=== PATIENT | male | born 1970 | race Two or more races ===

== ENCOUNTER 2016-07-25 11:37 | Emergency (ER) | payer SELFPAY ==
[~2016-07-25] VITALS: Ht 162.6 cm; Wt 65.3 kg
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
--- NOTE | 2016-07-25 12:05 | NUR ---
Shane pool in [facility] - 07/25/16 at 1227 by ABIGAIL PT TO RADIOLOGY FOR HEAD CT SCAN VIA [facility].
--- NOTE | 2016-07-25 12:12 | NUR ---
DR HERBERT AT BEDSIDE FOR EVAL.
--- NOTE | 2016-07-25 12:15 | NUR ---
PT TO RADIOLOGY FOR HEAD CT SCAN VIA [facility].
--- NOTE | 2016-07-25 17:15 | NUR ---
SLEEPING, EASILY AROUSABLE. ON MONITOR. VSS.
[2016-07-25 22:14] VITALS: BP 135/77
--- NOTE | 2016-07-25 22:14 | NUR ---
AWAKE. AMBULATORY W/ STEADY GAIT. STATES WANTS TO LEAVE. D/C IN STABLE CONDITION.
== END 2016-07-25 22:15 | disposition home or self-care (01) ==
LOC: ER 11:41 → EDBD 11:41 → ER 22:15
DX: F10.129 Alcohol abuse with intoxication, unspecified (principal); R51 Headache
CPT/HCPCS: 70450; 99284; A4606; Z7610

== ENCOUNTER 2016-08-15 19:15 | Emergency (ER) | payer SELFPAY ==
[~2016-08-15] VITALS: Ht 144.8 cm; Wt 70.8 kg
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
[2016-08-15] MEDS ORDERED: IV SET PRIMARY 1 EA INFUS.SET MC ONE ×2 (19:35→22:32)
[2016-08-15] MEDS ORDERED: IV NS 0.9% 1,000 ML ONE (19:35)
[2016-08-15] MEDS ORDERED: ONDANSETRON HCL/PF 4 MG/2 ML VIAL ONE (19:35)
[2016-08-15 19:46] LABS: EOSINOPHILS # (AUTO) 0.1 /CMM (0.0-0.7); EOSINOPHILS % (AUTO) 1.6 % (0.0-6.0); HEMATOCRIT 38 % (39-51); HEMOGLOBIN 12.5 g/dL (13.5-17.5); LYMPHOCYTES # (AUTO) 1.2 /CMM (0.8-4.8); LYMPHOCYTES % (AUTO) 32.5 % (20.0-44.0); MEAN CORPUSCULAR HEMOGLOBIN 32 PG (26.0-33.0); MEAN CORPUSCULAR HGB CONC 33 g/dl (31.0-36.0); MEAN CORPUSCULAR VOLUME 97 fL (80-96); MONOCYTES # (AUTO) 0.5 /CMM (0.1-1.30); MONOCYTES % (AUTO) 12.2 % (2.0-12.0); NEUTROPHILS % (AUTO) 52.7 % (43.0-81.0); RDW COEFFICIENT OF VARIATION 15.3 (11.5-15.0); RED BLOOD CELL COUNT(AUTO) 3.86 MIL/uL (4.5-6.0); WHITE BLOOD COUNT (AUTO) 3.8 K/uL (4.3-11.0)
[2016-08-15 19:51] LABS: PLATELET COUNT (AUTO) 47 /CMM (150-450)
--- NOTE | 2016-08-15 19:58 | NUR ---
STARTED A SALINE LOCK ON THE RIGHT HAND G20.
[2016-08-15] MEDS ORDERED: ONDANSETRON HCL/PF 4 MG/2 ML VIAL IVP ONE (20:00)
[2016-08-15] MEDS ORDERED: IV NS 0.9% 1,000 ML BAG IV ONE (20:00)
--- NOTE | 2016-08-15 20:05 | NUR ---
PT NOT ABLE TO COOPERATE AT THIS TIME. MAY GET MEDS LATER, ER WILL CALL WHEN READY.
[2016-08-15 20:09] LABS: APPEARANCE,URINE Clear (CLEAR); BILIRUBIN,URINE Negative (NEGATIVE); BLOOD, URINE Trace-lysed Ery/uL (NEGATIVE); COLOR,URINE Yellow (YELLOW); KETONES,URINE Negative (NEGATIVE); LEUKOCYTE ESTERASE ,URINE Negative (NEGATIVE); NITRITE, URINE Negative (NEGATIVE); PROTEIN,URINE Negative (NEGATIVE); UGLUCOSE Negative (NEGATIVE); UROBILINOGEN,URINE 0.2 EU/dL (0.2)
[2016-08-15 20:22] LABS: CANNABINOID, URINE NEGATIVE (NEGATIVE); PHENCYCLIDINE SCREEN,URINE NEGATIVE (NEGATIVE)
[2016-08-15 20:26] LABS: ALBUMIN 3.7 g/dL (3.4-5.0); BILIRUBIN,DIRECT 0.1 mg/dL (0.0-0.2); BILIRUBIN,TOTAL 0.3 mg/dL (0.2-1.0); CALCIUM, SERUM 8.1 mg/dL (8.5-10.1); CREATININE 0.6 mg/dL (0.6-1.3); TOTAL PROTEIN, SERUM 7.9 g/dL (6.4-8.2)
[2016-08-15 20:27] LABS: SALICYLATE 1.1 mg/dL (2.8-20.0)
[2016-08-15 20:49] LABS: POTASSIUM 3.6 mmol/L (3.5-5.1)
[2016-08-15 21:06] LABS: ADD URINE CULTURE NO; BACTERIA,URINE None seen /HPF (None Seen); SQUAMOUS EPITHELIAL CELL,UR None Seen /HPF (None Seen); WBC,URINE 0-2 /HPF (0-3)
[2016-08-15] MEDS ORDERED: IV PREMIX D5 1/2NS + KCL 1,000 ML IV ONE ×2 (22:05→22:32)
[2016-08-15 22:07] LABS: LYMPHOCYTES % (MANUAL) 37 % (16-48); NEUTROPHILS % (MANUAL) 54 (42-76)
[2016-08-15 22:08] LABS: ANISOCYTOSIS 1+; BASOPHILS % (MANUAL) 0 % (0.0-2.0); EOSINOPHILS % (MANUAL) 2 % (0-4); MONOCYTES % (MANUAL) 7 % (0-11.0); PLATELET ESTIMATE DECREASED
[2016-08-15] MEDS ORDERED: IV SET PRIMARY PUMP SET 1 EA INFUS.SET MC ONE (22:32)
--- NOTE | 2016-08-16 05:15 | NUR ---
PT REQUESTING TO BE DISCHARGED HOME. PT OK TO BE DISCHARGED PER DR JONES. Patient discharged to home in stable condition. Written and verbal after care instructions given. Patient verbalizes understanding of instruction.IV removed. Catheter intact and site benign. Pressure and 4x4 applied to site. No bleeding noted.Patient is awake and alert to self, day, and place. PT ambulatory with a steady gait
[2016-08-16 05:30] VITALS: BP 118/85
== END 2016-08-16 05:31 | disposition home or self-care (01) ==
LOC: ER 19:16
DX: S00.83XA Contusion of other part of head, initial encounter (principal); S20.212A Contusion of left front wall of thorax, initial encounter; F10.129 Alcohol abuse with intoxication, unspecified; W18.39XA Other fall on same level, initial encounter; Y93.89 Activity, other specified; Y92.89 Other specified places as the place of occurrence of the external cause; Y99.8 Other external cause status
CPT/HCPCS: 36415; 70450-TC; 70486-TC; 71100-TC; 72125-TC; 80048-TC; 80076-TC; 80305; 81000-TC; 83690-TC; 83735-TC; 85025-TC; A4606; G0480; G6039-TC; J2405; J3490; J7030; L0172; Z7610

== ENCOUNTER 2016-12-25 14:47 | Emergency (ER) | payer SELFPAY ==
[~2016-12-25] VITALS: Ht 152.4 cm; Wt 61.7 kg
[~2016-12-25 14:47] MED LIST: MULT-24 PO; TETR500C PO; THIA100T74 PO
--- NOTE | 2016-12-25 14:50 | NUR ---
BIBRA 839 FOR ETOH, GA=826. PATIENT IS AWAKE, HOWEVER CONFUSED. APPEARS IN NO APPARENT DISTRESS. RESPIRATION EVEN AND UNLABORED. VSS
--- NOTE | 2016-12-25 16:20 | NUR ---
Patient is resting comfortably in bed with eyes closed. Easily aroused. VSS
[2016-12-25 16:50] VITALS: BP 112/81
== END 2016-12-25 16:50 | disposition home or self-care (01) ==
LOC: ER 14:49
DX: F10.129 Alcohol abuse with intoxication, unspecified (principal)
CPT/HCPCS: 99283; A4606; Z7610

== ENCOUNTER 2016-12-26 11:56 | Emergency (ER) | payer SELFPAY ==
[~2016-12-26] VITALS: Ht 160 cm; Wt 62.1 kg
--- NOTE | 2016-12-26 12:05 | NUR ---
PT BIBRA FROM THE STREETS TO ER BED 16. HERE FOR ETOH. NO OBVIOUS TRAUMA. PT IS AWAKE. STABLE VITALS. AWAITING MD VILLALOBOS.
--- NOTE | 2016-12-26 13:39 | NUR ---
PT IS AWAKE. PROVIDED W/ SANDWICH AND DRINKS. AMBULATED W/ STEADY GAIT. D/C IN SABLE CONDITION.
[2016-12-26 13:40] VITALS: BP 135/80
== END 2016-12-26 13:41 | disposition home or self-care (01) ==
LOC: ER 11:57
DX: F10.10 Alcohol abuse, uncomplicated (principal)
CPT/HCPCS: A4606; Z7610

== ENCOUNTER 2017-01-23 18:42 | Emergency (ER) | payer SELFPAY ==
[~2017-01-23] VITALS: Ht 160 cm; Wt 68.0 kg
--- NOTE | 2017-01-23 18:45 | NUR ---
PT GABI FROM THE STREETS TO ER BED 15. HERE FOR ETOH. NO OBVIOUS SIGN OF TRAUMA NOTED. STABLE VITALS AWAITING MD VILLALOBOS.
--- NOTE | 2017-01-23 22:05 | NUR ---
Patient discharged to home in stable condition. Written and verbal after care instructions given. Patient verbalizes understanding of instruction.
[2017-01-23 22:06] VITALS: BP 118/60
== END 2017-01-23 22:07 | disposition home or self-care (01) ==
LOC: ER 18:43
DX: F10.129 Alcohol abuse with intoxication, unspecified (principal)
CPT/HCPCS: A4606; Z7610

== ENCOUNTER 2017-05-09 10:00 | Emergency (ER) | payer SELFPAY ==
[~2017-05-09] VITALS: Ht 162.6 cm; Wt 68.0 kg
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
[2017-05-09] MEDS ORDERED: IV NS 0.9% 1,000 ML BAG IV ONE (11:30)
[2017-05-09 11:50] LABS: HEMATOCRIT 41 % (39-51); HEMOGLOBIN 14.4 g/dL (13.5-17.5); MEAN CORPUSCULAR HEMOGLOBIN 34 PG (26.0-33.0); MEAN CORPUSCULAR HGB CONC 35 g/dl (31.0-36.0); MEAN CORPUSCULAR VOLUME 97 fL (80-96); RED BLOOD CELL COUNT(AUTO) 4.23 MIL/uL (4.5-6.0); WHITE BLOOD COUNT (AUTO) 4.8 K/uL (4.3-11.0)
[2017-05-09 11:51] LABS: BASOPHILS % (AUTO) 1.1 % (0.0-2.0); EOSINOPHILS % (AUTO) 1.4 % (0.0-6.0); LYMPHOCYTES # (AUTO) 1.7 /CMM (0.8-4.8); LYMPHOCYTES % (AUTO) 46.8 % (20.0-44.0); MONOCYTES # (AUTO) 0.5 /CMM (0.1-1.30); MONOCYTES % (AUTO) 7.3 % (2.0-12.0); NEUTROPHILS % (AUTO) 43.4 % (43.0-81.0); PLATELET COUNT (AUTO) 192 /CMM (150-450); RDW COEFFICIENT OF VARIATION 11.2 (11.5-15.0)
[2017-05-09 12:11] LABS: CALCIUM, SERUM 8.8 mg/dL (8.5-10.1); POTASSIUM 3.9 mmol/L (3.5-5.1)
[2017-05-09 12:12] LABS: BILIRUBIN,DIRECT 0.1 mg/dL (0.0-0.2); BILIRUBIN,TOTAL 0.3 mg/dL (0.2-1.0); CREATININE 0.6 mg/dL (0.6-1.3); SALICYLATE 1.8 mg/dL (2.8-20.0)
[2017-05-09 12:14] LABS: APPEARANCE,URINE Clear (CLEAR); BILIRUBIN,URINE Negative (NEGATIVE); BLOOD, URINE Negative Ery/uL (NEGATIVE); COLOR,URINE Yellow (YELLOW); KETONES,URINE Negative (NEGATIVE); LEUKOCYTE ESTERASE ,URINE Negative (NEGATIVE); NITRITE, URINE Negative (NEGATIVE); PH,URINE 5.5 (5.0-8.0); PROTEIN,URINE Negative (NEGATIVE); UGLUCOSE Negative (NEGATIVE); UROBILINOGEN,URINE 0.2 EU/dL (0.2)
[2017-05-09 13:20] VITALS: BP 122/70
--- NOTE | 2017-05-09 13:20 | NUR ---
Patient discharged to home in stable condition. Written and verbal after care instructions given. Patient verbalizes understanding of instruction.IV removed. Catheter intact and site benign. Pressure and 4x4 applied to site. No bleeding noted.
== END 2017-05-09 13:24 | disposition home or self-care (01) ==
LOC: ER 10:02
DX: F10.129 Alcohol abuse with intoxication, unspecified (principal)
CPT/HCPCS: 36415; 80048; 80076; 80305; 80329; 81001; 85025; 99284; A4606; G0480 ×2; Z7610; 81000-TC

== ENCOUNTER 2017-05-12 12:06 | Emergency (ER) | payer SELFPAY ==
[~2017-05-12] VITALS: Ht 152.4 cm; Wt 60.8 kg
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
[2017-05-12 13:24] VITALS: BP 109/65
== END 2017-05-12 13:55 | disposition home or self-care (01) ==
LOC: ER 12:07
DX: F10.129 Alcohol abuse with intoxication, unspecified (principal)
CPT/HCPCS: 99283; A4606; Z7610

== ENCOUNTER 2017-05-14 15:44 | Emergency (ER) | payer SELFPAY ==
[~2017-05-14] VITALS: Ht 172.7 cm; Wt 74.8 kg
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
[2017-05-14 16:29] VITALS: BP 130/82
--- NOTE | 2017-05-14 16:50 | NUR ---
PATIENT AMBULATED TO ER RESTROOM WITH STEADY GAIT. PATIENT IS A/O X 3, NO DISTRESS NOTED. GAVE PATIENT WATER
--- NOTE | 2017-05-14 17:00 | NUR ---
PATIENT STATES HE WANT TO GO HOME, JUSTO CARPENTER NOTIFIED
--- NOTE | 2017-05-14 17:12 | NUR ---
Patient eloped from facility. ER MD notified.
== END 2017-05-14 17:18 | disposition left against medical advice (07) ==
LOC: ER 15:47
DX: F10.129 Alcohol abuse with intoxication, unspecified (principal); J02.9 Acute pharyngitis, unspecified
CPT/HCPCS: 99283; A4606; Z7610

== ENCOUNTER 2017-05-18 09:47 | Emergency (ER) | payer SELFPAY ==
[~2017-05-18] VITALS: Ht 162.6 cm; Wt 68.0 kg
[2017-05-18 10:25] LABS: EOSINOPHILS # (AUTO) 0.1 /CMM (0.0-0.7); EOSINOPHILS % (AUTO) 1.5 % (0.0-6.0); MONOCYTES # (AUTO) 0.4 /CMM (0.1-1.30); RDW COEFFICIENT OF VARIATION 11.6 (11.5-15.0)
[2017-05-18 10:35] LABS: CALCIUM, SERUM 8.1 mg/dL (8.5-10.1); CREATININE 0.6 mg/dL (0.6-1.3); POTASSIUM 3.6 mmol/L (3.5-5.1)
[2017-05-18 10:39] LABS: ALBUMIN 3.8 g/dL (3.4-5.0); BILIRUBIN,DIRECT 0.1 mg/dL (0.0-0.2); BILIRUBIN,TOTAL 0.3 mg/dL (0.2-1.0); TOTAL PROTEIN, SERUM 8.3 g/dL (6.4-8.2)
[2017-05-18 10:57] LABS: BASOPHILS % (AUTO) 0.5 % (0.0-2.0); HEMATOCRIT 35 % (39-51); LYMPHOCYTES # (AUTO) 1.3 /CMM (0.8-4.8); LYMPHOCYTES % (AUTO) 34.4 % (20.0-44.0); MEAN CORPUSCULAR HEMOGLOBIN 34 PG (26.0-33.0); MEAN CORPUSCULAR HGB CONC 35 g/dl (31.0-36.0); MEAN CORPUSCULAR VOLUME 97 fL (80-96); MONOCYTES % (AUTO) 9.3 % (2.0-12.0); NEUTROPHILS # (AUTO) 2.1 /CMM (1.8-8.9); NEUTROPHILS % (AUTO) 54.3 % (43.0-81.0); RED BLOOD CELL COUNT(AUTO) 3.57 MIL/uL (4.5-6.0); WHITE BLOOD COUNT (AUTO) 3.9 K/uL (4.3-11.0)
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
[2017-05-18 11:01] LABS: PLATELET COUNT (AUTO) 37 /CMM (150-450)
[2017-05-18 11:57] VITALS: BP 134/75
--- NOTE | 2017-05-18 11:57 | NUR ---
Patient discharged to home in stable condition. Written and verbal after care instructions given. Patient verbalizes understanding of instruction.
[2017-05-18 11:59] LABS: BAND % (MANUAL) 3 % (0.0-5.0); LYMPHOCYTES % (MANUAL) 32 % (16-48); MONOCYTES % (MANUAL) 6 % (0-11.0); NEUTROPHILS % (MANUAL) 59 (42-76)
== END 2017-05-18 11:58 | disposition home or self-care (01) ==
LOC: ER 09:53
DX: F10.129 Alcohol abuse with intoxication, unspecified (principal); D69.6 Thrombocytopenia, unspecified
CPT/HCPCS: 36415; 80048; 80076; 83690; 85025; 99284; A4606; Z7610

== ENCOUNTER 2017-06-04 11:41 | Emergency (ER) | payer SELFPAY ==
[~2017-06-04] VITALS: Ht 162.6 cm; Wt 74.8 kg
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
[2017-06-04 12:21] LABS: BASOPHILS % (AUTO) 1.2 % (0.0-2.0); EOSINOPHILS % (AUTO) 1.1 % (0.0-6.0); HEMATOCRIT 34 % (39-51); HEMOGLOBIN 11.8 g/dL (13.5-17.5); LYMPHOCYTES # (AUTO) 1.2 /CMM (0.8-4.8); LYMPHOCYTES % (AUTO) 34.3 % (20.0-44.0); MEAN CORPUSCULAR HEMOGLOBIN 34 PG (26.0-33.0); MEAN CORPUSCULAR HGB CONC 35 g/dl (31.0-36.0); MEAN CORPUSCULAR VOLUME 97 fL (80-96); MONOCYTES # (AUTO) 0.5 /CMM (0.1-1.30); MONOCYTES % (AUTO) 13.2 % (2.0-12.0); NEUTROPHILS # (AUTO) 1.9 /CMM (1.8-8.9); NEUTROPHILS % (AUTO) 50.2 % (43.0-81.0); RDW COEFFICIENT OF VARIATION 13.2 (11.5-15.0); RED BLOOD CELL COUNT(AUTO) 3.47 MIL/uL (4.5-6.0); WHITE BLOOD COUNT (AUTO) 3.6 K/uL (4.3-11.0)
[2017-06-04 12:22] LABS: PLATELET COUNT (AUTO) 33 /CMM (150-450)
[2017-06-04 12:29] LABS: CALCIUM, SERUM 8.3 mg/dL (8.5-10.1); CREATININE 0.8 mg/dL (0.6-1.3); POTASSIUM 3.5 mmol/L (3.5-5.1)
--- NOTE | 2017-06-04 12:31 | NUR ---
Patient is resting comfortably in bed with eyes closed. Easily aroused.
[2017-06-04 12:37] LABS: ALBUMIN 3.7 g/dL (3.4-5.0); BILIRUBIN,DIRECT 0.1 mg/dL (0.0-0.2); BILIRUBIN,TOTAL 0.4 mg/dL (0.2-1.0); TOTAL PROTEIN, SERUM 8.3 g/dL (6.4-8.2)
[2017-06-04 12:39] LABS: SALICYLATE 0.8 mg/dL (2.8-20.0)
[2017-06-04 13:30] LABS: BAND % (MANUAL) 1 % (0.0-5.0); EOSINOPHILS % (MANUAL) 4 % (0-4); LYMPHOCYTES % (MANUAL) 33 % (16-48); MONOCYTES % (MANUAL) 13 % (0-11.0); NEUTROPHILS % (MANUAL) 49 (42-76)
--- NOTE | 2017-06-04 14:48 | NUR ---
Patient is resting comfortably in bed with eyes closed. Easily aroused.
--- NOTE | 2017-06-04 16:51 | NUR ---
Patient discharged in stable condition. Written and verbal after care instructions given. Patient verbalizes understanding of instruction. Ambulatory in a steady gait.
[2017-06-04 16:55] VITALS: BP 135/82
== END 2017-06-04 16:55 | disposition home or self-care (01) ==
LOC: ER 11:43
DX: F10.129 Alcohol abuse with intoxication, unspecified (principal)
CPT/HCPCS: 36415; 70450-TC; 80048-TC; 80076-TC; 85025-TC; A4606; G0480; Z7610

== ENCOUNTER 2017-06-29 10:32 | Emergency (ER) | payer SELFPAY ==
[~2017-06-29] VITALS: Ht 160 cm; Wt 65.8 kg
[2017-06-29 11:11] LABS: BASOPHILS # (AUTO) 0.1 /CMM (0.0-0.2); BASOPHILS % (AUTO) 1.4 % (0.0-2.0); EOSINOPHILS # (AUTO) 0.1 /CMM (0.0-0.7); EOSINOPHILS % (AUTO) 2.7 % (0.0-6.0); HEMATOCRIT 35 % (39-51); HEMOGLOBIN 11.9 g/dL (13.5-17.5); LYMPHOCYTES % (AUTO) 27.4 % (20.0-44.0); MEAN CORPUSCULAR HEMOGLOBIN 33 PG (26.0-33.0); MEAN CORPUSCULAR HGB CONC 34 g/dl (31.0-36.0); MEAN CORPUSCULAR VOLUME 98 fL (80-96); MONOCYTES # (AUTO) 0.5 /CMM (0.1-1.30); MONOCYTES % (AUTO) 12.8 % (2.0-12.0); NEUTROPHILS % (AUTO) 55.7 % (43.0-81.0); PLATELET COUNT (AUTO) 62 /CMM (150-450); RDW COEFFICIENT OF VARIATION 14.5 (11.5-15.0); RED BLOOD CELL COUNT(AUTO) 3.59 MIL/uL (4.5-6.0); WHITE BLOOD COUNT (AUTO) 3.7 K/uL (4.3-11.0)
[2017-06-29 11:24] LABS: CALCIUM, SERUM 8.5 mg/dL (8.5-10.1); CREATININE 0.6 mg/dL (0.6-1.3); POTASSIUM 3.6 mmol/L (3.5-5.1)
[2017-06-29 11:38] LABS: ALBUMIN 3.8 g/dL (3.4-5.0); BILIRUBIN,DIRECT 0.2 mg/dL (0.0-0.2); BILIRUBIN,TOTAL 0.3 mg/dL (0.2-1.0); SALICYLATE 1.2 mg/dL (2.8-20.0); TOTAL PROTEIN, SERUM 8.5 g/dL (6.4-8.2)
--- NOTE | 2017-06-29 12:00 | NUR ---
Patient is resting comfortably in bed with eyes closed. Easily aroused. VSS
[2017-06-29 12:59] LABS: BAND % (MANUAL) 1 % (0.0-5.0); EOSINOPHILS % (MANUAL) 1 % (0-4); LYMPHOCYTES % (MANUAL) 26 % (16-48); MONOCYTES % (MANUAL) 16 % (0-11.0); NEUTROPHILS % (MANUAL) 56 (42-76)
--- NOTE | 2017-06-29 13:04 | NUR ---
URINE SAMPLE OBTAINED, SENT.
[2017-06-29 13:09] LABS: APPEARANCE,URINE Clear (CLEAR); BILIRUBIN,URINE Negative (NEGATIVE); BLOOD, URINE Trace-lysed Ery/uL (NEGATIVE); COLOR,URINE Yellow (YELLOW); KETONES,URINE Negative (NEGATIVE); LEUKOCYTE ESTERASE ,URINE Trace (NEGATIVE); NITRITE, URINE Negative (NEGATIVE); PH,URINE 5.5 (5.0-8.0); PROTEIN,URINE Negative (NEGATIVE); UGLUCOSE Negative (NEGATIVE); UROBILINOGEN,URINE 0.2 EU/dL (0.2)
[2017-06-29 13:14] LABS: BACTERIA,URINE None seen /HPF (None Seen)
[2017-06-29 13:16] LABS: SQUAMOUS EPITHELIAL CELL,UR Few /HPF (None Seen)
--- NOTE | 2017-06-29 15:30 | NUR ---
Patient is resting comfortably in bed with eyes closed. Easily aroused. VSS
[2017-06-29 19:21] VITALS: BP 118/72
== END 2017-06-29 18:55 | disposition home or self-care (01) ==
LOC: ER 10:33
DX: F10.129 Alcohol abuse with intoxication, unspecified (principal)
CPT/HCPCS: 36415; 80048; 80076; 80305; 80329; 81001; 85025; 99284; A4606; G0480 ×2; Z7610; 81000-TC

== ENCOUNTER 2017-07-02 14:16 | Emergency (ER) | payer SELFPAY ==
[~2017-07-02] VITALS: Ht 165.1 cm; Wt 79.4 kg
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
--- NOTE | 2017-07-02 16:00 | NUR ---
patient ambulated with steady gait
[2017-07-02 22:31] VITALS: BP 113/78
== END 2017-07-02 22:34 | disposition home or self-care (01) ==
LOC: ER 14:17
DX: R41.82 Altered mental status, unspecified (principal); F10.129 Alcohol abuse with intoxication, unspecified
CPT/HCPCS: A4606; Z7610

== ENCOUNTER 2017-07-16 11:22 | Emergency (ER) | payer SELFPAY ==
[~2017-07-16] VITALS: Ht 160 cm; Wt 67.6 kg
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
--- NOTE | 2017-07-16 13:06 | NUR ---
PT SLEEPING IN BED. ON MONITOR W/ STABLE VITALS. WILL CONT TO MONITOR.
--- NOTE | 2017-07-16 15:20 | NUR ---
PT AMBULATORY W/ STEADY GAIT. WANTS TO GO HOME. ERMD AWARE. D/C HOME IN STABLE CONDITION.
[2017-07-16 15:21] VITALS: BP 115/76
== END 2017-07-16 15:22 | disposition home or self-care (01) ==
LOC: ER 11:24
DX: F10.129 Alcohol abuse with intoxication, unspecified (principal)
CPT/HCPCS: 82962-TC; A4606; Z7610

== ENCOUNTER 2018-01-21 08:37 | Inpatient (IN) | payer MEDICAID ==
[~2018-01-21] VITALS: Ht 167.6 cm; Wt 63.2 kg
[~2018-01-21 08:37] MED LIST changes: +TETR-66 PO; -TETR500C PO
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
[2018-01-21] MEDS ORDERED: LORAZEPAM INJ 2 MG/ML VIAL IVP ONE (09:00)
[2018-01-21] MEDS ORDERED: IV NS 0.9% 1,000 ML BAG IV ONE (09:00)
[2018-01-21] MEDS ORDERED: CEFAZOLIN 1 GM in IV D5W 50 ML IV ONE (09:00)
[2018-01-21] MEDS ORDERED: TDAP [DIPH/PERTUSSIS/TET] 0.5 ML VIAL IM ONE ×2 (09:00→09:08)
[2018-01-21] MEDS ORDERED: LORAZEPAM INJ 2 MG/ML VIAL ONE ×2 (09:08→13:51)
--- NOTE | 2018-01-21 09:15 | NUR ---
NEW IV STARTED ON RAC, 20G. BLOOD DRAWN AND SENT TO LAB.
[2018-01-21 09:22] LABS: BASOPHILS % (AUTO) 0.2 % (0.0-2.0); HEMATOCRIT 32 % (39-51); HEMOGLOBIN 10.4 g/dL (13.5-17.5); LYMPHOCYTES # (AUTO) 0.3 /CMM (0.8-4.8); LYMPHOCYTES % (AUTO) 2.2 % (20.0-44.0); MEAN CORPUSCULAR HGB CONC 33 g/dl (31.0-36.0); MEAN CORPUSCULAR VOLUME 107 fL (80-96); MONOCYTES # (AUTO) 0.8 /CMM (0.1-1.30); MONOCYTES % (AUTO) 6.6 % (2.0-12.0); NEUTROPHILS # (AUTO) 10.7 /CMM (1.8-8.9); RDW COEFFICIENT OF VARIATION 15.2 (11.5-15.0); RED BLOOD CELL COUNT(AUTO) 2.93 MIL/uL (4.5-6.0); WHITE BLOOD COUNT (AUTO) 11.8 K/uL (4.3-11.0)
[2018-01-21 09:34] LABS: PLATELET COUNT (AUTO) 20 /CMM (150-450)
[2018-01-21 09:43] LABS: ALANINE AMINOTRANSFERASE 28 U/L (12-78); ALBUMIN 2.6 g/dL (3.4-5.0); ALCOHOL, BLOOD < 3 mg/dL (0-0); ALKALINE PHOSPHATASE 224 U/L (46-116); ASPARTATE AMINOTRANSFERASE 141 U/L (15-37); BILIRUBIN,DIRECT 1.3 mg/dL (0.0-0.2); CALCIUM, SERUM 7.8 mg/dL (8.5-10.1); CARBON DIOXIDE 27 mmol/L (21-32); CHLORIDE 98 mmol/L (98-107); CREATININE 0.9 mg/dL (0.6-1.3); GLUCOSE 117 mg/dL (74-106); SODIUM SERUM 135 mmol/L (136-145); TOTAL PROTEIN, SERUM 7.4 g/dL (6.4-8.2); UREA NITROGEN, BLOOD 6 mg/dL (7-18)
[2018-01-21 09:47] LABS: POTASSIUM 2.8 mmol/L (3.5-5.1)
[2018-01-21 09:57] LABS: BAND % (MANUAL) 6 % (0.0-5.0); LYMPHOCYTES % (MANUAL) 3 % (16-48); MONOCYTES % (MANUAL) 3 % (0-11.0); NEUTROPHILS % (MANUAL) 88 (42-76)
[2018-01-21] MEDS ORDERED: IOHEXOL-350 100 ML VIAL IV ONE (10:00)
[2018-01-21] MEDS ORDERED: IV NS 0.9% 250 ML IV ONE (10:03)
--- NOTE | 2018-01-21 10:05 | NUR ---
patient taken to ct via stretcher.
--- NOTE | 2018-01-21 10:17 | NUR ---
patient returned from ct in stable condition
[2018-01-21] MEDS ORDERED: POTASSIUM CL. PREMIX PERIPHER. 0 ML ONE ×2 (10:30→11:49)
[2018-01-21] MEDS: POTASSIUM CL. PREMIX PERIPHER. 50 ML IV SCH ×4 (10:30→23:58)
--- NOTE | 2018-01-21 11:16 | NUR ---
Shane pool in [facility] - 01/21/18 at 1149 by FLOR SPOKE WITH OLLIE MANAGER OF PLANNING; CALLED IN FOR EVAL OF PT
--- NOTE | 2018-01-21 11:40 | NUR ---
PATIENT RIPPED OUT IV AND IS REFUSING SECOND DOSE OF POTASSIUM. INFORMED
[2018-01-21] MEDS ORDERED: POTASSIUM CL. PREMIX PERIPHER. 50 ML ONE (11:50)
[2018-01-21] MEDS ORDERED: LORAZEPAM INJ 2 MG/ML VIAL IV ONE (14:00)
--- NOTE | 2018-01-21 15:06 | NUR ---
REPORT GIVEN TO BISI NIEVES KRISTYN UPON ADMISSION.
--- NOTE | 2018-01-21 15:13 | NUR ---
RN MED/SURG ADMISSION REPORT RECEIVED FROM [facility].
--- NOTE | 2018-01-21 15:37 | NUR ---
PATIENT TRANSPORTED TO [facility] VIA STRETCHER. RNBISI TO PROVIDE KRISTYN.
[2018-01-21] MEDS ORDERED: IV NS 0.9% 1,000 ML IV PRN (16:22)
[2018-01-21] MEDS ORDERED: MAGNESIUM HYDROXIDE 30 ML UDC PO PRN (16:30)
[2018-01-21] MEDS ORDERED: Z GUARD REMEDY 2 OZ OINT TP PRN (16:30)
[2018-01-21] MEDS ORDERED: VANCOMYCIN 1 GM in IV D5W 250 ML IV SCH (16:30)
[2018-01-21] MEDS ORDERED: MAG HYDROX/AL HYDROX/SIMETH 30 ML UDC PO PRN (16:30)
[2018-01-21] MEDS ORDERED: ZOLPIDEM TARTRATE 5 MG TABLET PO PRN (16:30)
--- NOTE | 2018-01-21 17:06 | NUR ---
SKI TECHNICIAN INITIAL NOTES RECEIVED REPORT AND PATIENT FROM PM NURSE, PATIENT RESTING IN BED WITH NO ACUTE DISTRESS NOTED, ALL NEEDS MET, ADMISSION PACKET COMPLETED, VS BP 104/65, RESP 15, TEMP 102.9, ICE PACK PROVIDED, ON TELE MON SINUS TACHY 104, 100% ON ROOM AIR NO SOB OR ACUTE DISTRESS, RT AC IV SITE 20 G INTACT PATENT WOUND PICTURES TAKEN AND PLACED IN CHART, WILL CONTINUE TO MONITOR.
[2018-01-21] MEDS ORDERED: FEE PK DOSING 1 MIN EA MC ONE (17:15)
[2018-01-21] MEDS: PANTOPRAZOLE 40 MG TABLET.DR PO SCH (17:29)
[2018-01-21] MEDS: ACETAMINOPHEN 325 MG TABLET PO PRN (17:29)
[2018-01-21] MEDS: PIPERACILLIN /TAZOBACTAM 3.375 G in IV D5W 50 ML IV SCH (17:39)
--- NOTE | 2018-01-21 18:23 | NUR ---
STUDIO DIRECTOR NOTES PT STABLE WITH NO ACUTE CHANGES NOTED. TYLENOL GIVEN FOR FEVER 102 ICE PACKS PROVIDED, ALL NEEDS MET, WILL ENDORSE TO PM NURSE.
[2018-01-21] MEDS ORDERED: VANCOMYCIN 0.75 GM in IV D5W 250 ML IV SCH (19:00)
--- NOTE | 2018-01-21 19:30 | NUR ---
TELE/RN NOTES: RECEIVED PT. IN BED W/HOB ELEVATED. W/ NO FACIAL GRIMACES OR MOANING NOTED. ON TELE MONITOR W/ SR. W/ RAC G 20 PATENT AND INTACT INFUSING NS @ 100ML/HR. ALL NEEDS MEET. WILL CONTINUE TO MONITOR.
[2018-01-21 20:00] VITALS: BP 92/60
[2018-01-21] MEDS: VANCOMYCIN 0.75 GM in IV D5W 250 ML IV SCH (20:35)
[2018-01-21] MEDS ORDERED: POTASSIUM CHLORIDE 10 MEQ/50 ML PREMIXED IVPB FOR PERIPHERAL LINE IV ONE (23:00)
--- NOTE | 2018-01-21 23:00 | NUR ---
TELE/RN NOTES: CALLED DR. BREEN REGARDING PT. K 2.8. & PT. BP 92/60 W/ NEW ORDERS NOTED AND CARRIED OUT. UA SEND.
[2018-01-22] VITALS: BP 106/66
[2018-01-22] MEDS: PIPERACILLIN /TAZOBACTAM 3.375 G in IV D5W 50 ML IV SCH ×4 (00:49→18:00)
[2018-01-22] MEDS ORDERED: Potassium Chloride 20 MEQ in IV NS 0.9% 1,000 ML IV PRN (01:00)
[2018-01-22] MEDS ORDERED: IV PREMIX D5 1/2NS + KCL 1,000 ML IV ONE (01:20)
[2018-01-22] MEDS: Potassium Chloride 20 MEQ in IV D5/0.45 NACL 1,000 ML IV PRN ×2 (01:25→12:42)
[2018-01-22 04:00] VITALS: BP 98/60
[2018-01-22] MEDS: VANCOMYCIN 0.75 GM in IV D5W 250 ML IV SCH ×2 (04:14→11:47)
[2018-01-22 04:21] LABS: APPEARANCE,URINE SL CLOUDY (CLEAR); BILIRUBIN,URINE 1+ (NEGATIVE); BLOOD, URINE 3+ Ery/uL (NEGATIVE); COLOR,URINE DARK YELLO (YELLOW); KETONES,URINE NEGATIVE (NEGATIVE); LEUKOCYTE ESTERASE ,URINE NEGATIVE (NEGATIVE); NITRITE, URINE NEGATIVE (NEGATIVE); PROTEIN,URINE 2+ mg/dl (NEGATIVE); UGLUCOSE NEGATIVE (NEGATIVE)
[2018-01-22 05:00] LABS: BACTERIA,URINE Rare /HPF (None Seen); SQUAMOUS EPITHELIAL CELL,UR Rare /HPF (None Seen)
[2018-01-22] MEDS ORDERED: ACETAMINOPHEN 650 MG/SUPP.RECT RC PRN (05:00)
[2018-01-22 06:39] LABS: CHOLESTEROL 124 mg/dL (<200); HDL CHOLESTEROL 27 mg/dL (40-60); LDL 69 mg/dL (0-99); THYROID STIMULATING HORMONE 4.569 uIU/mL (0.358-3.74); TRIGLYCERIDES 106 mg/dL (30-150)
[2018-01-22 06:41] LABS: SERUM AMMONIA 52 umol/L (11-32)
[2018-01-22 06:42] LABS: ALANINE AMINOTRANSFERASE 34 U/L (12-78); ALBUMIN 2.3 g/dL (3.4-5.0); ALKALINE PHOSPHATASE 178 U/L (46-116); ASPARTATE AMINOTRANSFERASE 216 U/L (15-37); CALCIUM, SERUM 7.5 mg/dL (8.5-10.1); CARBON DIOXIDE 29 mmol/L (21-32); CHLORIDE 98 mmol/L (98-107); GLUCOSE 113 mg/dL (74-106); LIPASE 334 U/L (73-393); MAGNESIUM 1.5 mg/dL (1.8-2.4); SODIUM SERUM 132 mmol/L (136-145); TOTAL PROTEIN, SERUM 6.8 g/dL (6.4-8.2); UREA NITROGEN, BLOOD 6 mg/dL (7-18)
[2018-01-22 06:55] LABS: PHOSPHORUS 0.9 mg/dL (2.5-4.9); POTASSIUM 2.5 mmol/L (3.5-5.1)
--- NOTE | 2018-01-22 07:08 | NUR ---
TELE/RN NOTES: CRITICAL LAB OF K 2.5, PHOS 0.9 AND LACTIC ACID OF 2.6. PAGED DR. BREEN. AM CHARGE NURSE AND AM NURSE NOTIFIED.
[2018-01-22 07:24] LABS: BASOPHILS % (AUTO) 0.3 % (0.0-2.0); EOSINOPHILS % (AUTO) 0.1 % (0.0-6.0); HEMATOCRIT 29 % (39-51); HEMOGLOBIN 10.1 g/dL (13.5-17.5); LYMPHOCYTES # (AUTO) 0.5 /CMM (0.8-4.8); LYMPHOCYTES % (AUTO) 4.7 % (20.0-44.0); MEAN CORPUSCULAR HGB CONC 35 g/dl (31.0-36.0); MEAN CORPUSCULAR VOLUME 106 fL (80-96); MONOCYTES # (AUTO) 0.7 /CMM (0.1-1.30); MONOCYTES % (AUTO) 6.7 % (2.0-12.0); NEUTROPHILS # (AUTO) 9.1 /CMM (1.8-8.9); NEUTROPHILS % (AUTO) 88.2 % (43.0-81.0); RDW COEFFICIENT OF VARIATION 14.2 (11.5-15.0); RED BLOOD CELL COUNT(AUTO) 2.74 MIL/uL (4.5-6.0); WHITE BLOOD COUNT (AUTO) 10.3 K/uL (4.3-11.0)
--- NOTE | 2018-01-22 07:26 | NUR ---
Handoff report from TC Blake. Decrease potassium call to Doctor Luis Alberto by Lou. Will call again during morning for low potassium. Patient in bed resting. Platelets are 20. Red finger nails and toe nails with appearance of dry scabs between. Patient vital signs taken. Patient unable to sleep last night.
[2018-01-22 07:28] VITALS: BP 104/58
--- NOTE | 2018-01-22 07:31 | NUR ---
TELE/RN NOTES: REPORT GIVEN TO AM NURSE AND TO F/U CRITICAL LAB. INFORMED AM NURSE THAT IC DESIGN MANAGER CALLED DR. BREEN. WAITING FOR CALL BACK.
[2018-01-22 07:46] LABS: PLATELET COUNT (AUTO) 19 /CMM (150-450)
[2018-01-22] MEDS: PANTOPRAZOLE 40 MG TABLET.DR PO SCH (07:54)
[2018-01-22 11:12] VITALS: BP 110/61
[2018-01-22 11:17] LABS: NEUTROPHILS % (MANUAL) 80 (42-76)
[2018-01-22 11:18] LABS: BAND % (MANUAL) 5 % (0.0-5.0); LYMPHOCYTES % (MANUAL) 4 % (16-48); MONOCYTES % (MANUAL) 11 % (0-11.0)
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
[2018-01-22] MEDS: Magnesium 1GM/D5W 100ML PREMIX 100 ML IV SCH ×2 (11:46→12:35)
[2018-01-22] MEDS: LORAZEPAM INJ 2 MG/ML VIAL IV PRN ×2 (15:25→23:36)
[2018-01-22 15:26] VITALS: BP 115/70
[2018-01-22] MEDS ORDERED: POTASSIUM CHLORIDE 10 MEQ/50 ML PREMIXED IVPB FOR PERIPHERAL LINE IV ONE (16:30)
[2018-01-22] MEDS: Potassium Phosphate meq 11 MEQ in IV D5W 100 ML IV SCH ×2 (19:09→19:12)
[2018-01-22] MEDS: LACTOBACILLUS RHAMNOSUS GG 1 EACH CAP.SPRINK PO SCH (19:10)
--- NOTE | 2018-01-22 19:37 | NUR ---
Handoff to night nurse TC Beltran. Esau Kwong RN
[2018-01-22 20:00] VITALS: BP 107/65
[2018-01-22] MEDS: ACETAMINOPHEN 325 MG TABLET PO PRN (20:43)
[2018-01-22] MEDS: VANCOMYCIN 500 MG in IV D5W 100ml IV SCH (21:22)
[2018-01-22] MEDS ORDERED: POTASSIUM PHOSPHATE MM 15 MMOL in IV D5W 250 ML IV SCH (23:30)
[2018-01-22] MEDS: POTASSIUM PHOSPHATE MM 7.5 MMOL in IV D5W 100 ML IV SCH (23:36)
[2018-01-23] MEDS: PIPERACILLIN /TAZOBACTAM 3.375 G in IV D5W 50 ML IV SCH ×2 (00:37→06:31)
[2018-01-23] MEDS: POTASSIUM PHOSPHATE MM 7.5 MMOL in IV D5W 100 ML IV SCH (02:46)
[2018-01-23 04:00] VITALS: BP 111/63
[2018-01-23] MEDS: VANCOMYCIN 500 MG in IV D5W 100ml IV SCH ×3 (05:33→20:13)
[2018-01-23 06:49] LABS: ALBUMIN 2.2 g/dL (3.4-5.0); BILIRUBIN,DIRECT 3.2 mg/dL (0.0-0.2); BILIRUBIN,TOTAL 3.8 mg/dL (0.2-1.0); CALCIUM, SERUM 7.8 mg/dL (8.5-10.1); CREATININE 2.2 mg/dL (0.6-1.3); MAGNESIUM 2.1 mg/dL (1.8-2.4); POTASSIUM 3.1 mmol/L (3.5-5.1); TOTAL PROTEIN, SERUM 6.6 g/dL (6.4-8.2)
[2018-01-23 08:00] VITALS: BP 148/82
[2018-01-23] MEDS: PANTOPRAZOLE 40 MG TABLET.DR PO SCH (08:56)
[2018-01-23] MEDS: LACTOBACILLUS RHAMNOSUS GG 1 EACH CAP.SPRINK PO SCH ×2 (08:56→17:38)
[2018-01-23] MEDS: ZOSYN IVPB 2.25 G in IV D5W 50ml IV SCH ×3 (11:48→23:36)
[2018-01-23] MEDS: LACTULOSE 10 G/15 ML UDC (PYXIS) PO SCH ×3 (12:02→23:33)
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
[2018-01-23] MEDS: ACETAMINOPHEN 325 MG TABLET PO PRN ×2 (12:19→23:33)
[2018-01-23 16:00] VITALS: BP 112/75
[2018-01-23 20:00] VITALS: BP 123/80
[2018-01-23] MEDS: FOLIC ACID 1 MG TABLET PO SCH (20:13)
[2018-01-23 21:11] LABS: D-DIMER 2.15 mg/L(FEU (0.17-0.50); INR 1.25 (0.87-1.13)
[2018-01-23] MEDS: LORAZEPAM INJ 2 MG/ML VIAL IV PRN (23:33)
[2018-01-24 04:00] VITALS: BP 138/80
[2018-01-24] MEDS: Potassium Chloride 20 MEQ in IV NS 0.9% 1,000 ML IV PRN ×2 (05:06→18:22)
[2018-01-24] MEDS: LACTULOSE 10 G/15 ML UDC (PYXIS) PO SCH ×4 (05:06→23:23)
[2018-01-24] MEDS: ZOSYN IVPB 2.25 G in IV D5W 50ml IV SCH ×4 (05:06→23:24)
[2018-01-24] MEDS ORDERED: VANCOMYCIN 500 MG in IV D5W 100ml IV SCH (06:00)
--- NOTE | 2018-01-24 07:00 | NUR ---
M/S RN INITIAL NOTES RECEIVED PT IN BED. ASLEEP BUT AROUSABLE. A/O X2. PT IN SOFT RESTRAINTS WITH SITTER AT BEDSIDE. PT IS NOT IN PAIN. PT ON ROOM AIR. LAC IV SITE NO S/SX OF INFECTION. IV FLUIDS RUNNING. LUNG SOUNDS CLEAR TO AUSCULTATION. BOWEL SOUNDS ACTIVE. LBM TODAY AM. SAFETY PRECAUTIONS IN PLACE. CALL LIGHT IN REACH. WILL CONT TO MONITOR.
[2018-01-24 07:09] LABS: BILIRUBIN,TOTAL 4.1 mg/dL (0.2-1.0); CALCIUM, SERUM 8.1 mg/dL (8.5-10.1); CREATININE 2.3 mg/dL (0.6-1.3); MAGNESIUM 1.9 mg/dL (1.8-2.4); PHOSPHORUS 2.3 mg/dL (2.5-4.9); TOTAL PROTEIN, SERUM 6.4 g/dL (6.4-8.2)
[2018-01-24 07:11] LABS: POTASSIUM 2.4 mmol/L (3.5-5.1)
[2018-01-24] MEDS ORDERED: POTASSIUM CHLORIDE 10 MEQ/50 ML PREMIXED IVPB FOR PERIPHERAL LINE IV ONE (08:30)
[2018-01-24] MEDS ORDERED: POTASSIUM CHLORIDE 20 MEQ POWDER PACKET PO ONE (08:30)
[2018-01-24] MEDS: PANTOPRAZOLE 40 MG TABLET.DR PO SCH (08:33)
[2018-01-24 08:50] LABS: HEMATOCRIT 28 % (39-51); HEMOGLOBIN 9.6 g/dL (13.5-17.5); MEAN CORPUSCULAR HGB CONC 34 g/dl (31.0-36.0); MEAN CORPUSCULAR VOLUME 107 fL (80-96); RDW COEFFICIENT OF VARIATION 15.2 (11.5-15.0); RED BLOOD CELL COUNT(AUTO) 2.62 MIL/uL (4.5-6.0); WHITE BLOOD COUNT (AUTO) 6.4 K/uL (4.3-11.0)
[2018-01-24 08:52] LABS: BASOPHILS % (AUTO) 0.4 % (0.0-2.0); EOSINOPHILS % (AUTO) 0.5 % (0.0-6.0); LYMPHOCYTES # (AUTO) 0.6 /CMM (0.8-4.8); LYMPHOCYTES % (AUTO) 8.8 % (20.0-44.0); MONOCYTES # (AUTO) 1.4 /CMM (0.1-1.30); MONOCYTES % (AUTO) 21.2 % (2.0-12.0); NEUTROPHILS # (AUTO) 4.4 /CMM (1.8-8.9); NEUTROPHILS % (AUTO) 69.1 % (43.0-81.0); PLATELET COUNT (AUTO) 35 /CMM (150-450)
[2018-01-24] MEDS: FOLIC ACID 1 MG TABLET PO SCH (09:08)
[2018-01-24] MEDS: LACTOBACILLUS RHAMNOSUS GG 1 EACH CAP.SPRINK PO SCH ×2 (09:08→17:18)
--- NOTE | 2018-01-24 09:20 | NUR ---
MS RN NOTES STARTED POTASSIUM CHLORIDE IV 10MEQ/50ML AT 0920 AT 50ML/HR.
[2018-01-24 09:55] VITALS: BP 129/83
[2018-01-24 10:15] LABS: LYMPHOCYTES % (MANUAL) 11 % (16-48); MONOCYTES % (MANUAL) 14 % (0-11.0); NEUTROPHILS % (MANUAL) 75 (42-76)
[2018-01-24] MEDS ORDERED: NEUTRA PHOS 1 POWD.PACKET PO ONE (10:30)
[2018-01-24 12:00] VITALS: BP 127/85
--- NOTE | 2018-01-24 13:20 | NUR ---
RN NOTES 4 BAGS OF IV KCL , TOTAL OF [address] AGUILAR ORDER , CONTINUE TO MONITOR
[2018-01-24] MEDS: SOD FERRIC GLUC 125 MG in IV NS 0.9% 100 ML IV SCH (14:47)
[2018-01-24 16:00] VITALS: BP 120/82
[2018-01-24] MEDS: VANCOMYCIN 500 MG in IV D5W 100ml IV SCH (17:34)
[2018-01-24] MEDS: ACETAMINOPHEN 325 MG TABLET PO PRN (18:32)
--- NOTE | 2018-01-24 18:57 | NUR ---
M/S RN ENDING NOTES REPORTED TO PM NURSE FOR CONTINUITY OF CARE. PT ON RESTRAINTS. REQUIRES SITTER. BED IN LOCKED/LOW POSITION. SAFETY PRECAUTIONS IN PLACE. PT STABLE; NOT IN DISTRESS. CALL LIGHT IN REACH.
[2018-01-24 20:00] VITALS: BP 121/79
--- NOTE | 2018-01-24 20:00 | NUR ---
RN INITIAL NOTES RECEIVED PT IN BED. ASLEEP BUT ABUSABLE . A/O X2. PT IN SOFT RESTRAINTS WITH SITTER AT BEDSIDE. PT IS NOT IN PAIN. PT ON ROOM AIR. LAC IV SITE NO S/SX OF INFECTION. IV FLUIDS INFUSING ORDERED. BOWEL SOUNDS ACTIVE. PT HAS SEVERAL BM'S TODAY AM. SAFETY PRECAUTIONS IN PLACE. CALL LIGHT IN REACH. WILL CONT TO MONITOR.
[2018-01-24 21:20] LABS: APPEARANCE,URINE SL CLOUDY (CLEAR); BILIRUBIN,URINE 1+ (NEGATIVE); BLOOD, URINE 2+ Ery/uL (NEGATIVE); COLOR,URINE YELLOW (YELLOW); KETONES,URINE NEGATIVE (NEGATIVE); LEUKOCYTE ESTERASE ,URINE TRACE (NEGATIVE); NITRITE, URINE NEGATIVE (NEGATIVE); PROTEIN,URINE TRACE mg/dl (NEGATIVE); UGLUCOSE NEGATIVE (NEGATIVE); UROBILINOGEN,URINE 0.2 EU/dL (0.2)
[2018-01-24 21:32] LABS: BACTERIA,URINE Rare /HPF (None Seen); SQUAMOUS EPITHELIAL CELL,UR Rare /HPF (None Seen)
[2018-01-24 21:55] LABS: EOSINOPHIL,URINE None Seen
[2018-01-25] VITALS: BP 120/85
[2018-01-25 04:00] VITALS: BP_SYST 123; BP_DIAS 56; BP_DIAS 80
[2018-01-25] MEDS: VANCOMYCIN 500 MG in IV D5W 100ml IV SCH ×2 (05:03→17:56)
[2018-01-25] MEDS: ZOSYN IVPB 2.25 G in IV D5W 50ml IV SCH (05:07)
[2018-01-25] MEDS: LACTULOSE 10 G/15 ML UDC (PYXIS) PO SCH ×4 (05:07→23:12)
--- NOTE | 2018-01-25 06:36 | NUR ---
RN ENDING NOTES PT ON RESTRAINTS. REQUIRES SITTER. BED IN LOCKED/LOW POSITION. SAFETY PRECAUTIONS IN PLACE. PT STABLE; NOT IN DISTRESS. CALL LIGHT IN REACH. WILL ENDORSE TO AM RN
[2018-01-25 07:00] LABS: ALANINE AMINOTRANSFERASE 34 U/L (12-78); ALBUMIN 1.7 g/dL (3.4-5.0); ALKALINE PHOSPHATASE 234 U/L (46-116); ASPARTATE AMINOTRANSFERASE 123 U/L (15-37); BILIRUBIN,TOTAL 3.7 mg/dL (0.2-1.0); CALCIUM, SERUM 7.7 mg/dL (8.5-10.1); CARBON DIOXIDE 22 mmol/L (21-32); CHLORIDE 107 mmol/L (98-107); CREATINE KINASE, TOTAL 324 U/L (39-308); GLUCOSE 80 mg/dL (74-106); MAGNESIUM 1.8 mg/dL (1.8-2.4); PHOSPHORUS 3.6 mg/dL (2.5-4.9); SODIUM SERUM 140 mmol/L (136-145); UREA NITROGEN, BLOOD 21 mg/dL (7-18)
[2018-01-25] MEDS: PANTOPRAZOLE 40 MG TABLET.DR PO SCH (07:30)
[2018-01-25 07:49] LABS: POTASSIUM 2.4 mmol/L (3.5-5.1)
--- NOTE | 2018-01-25 07:55 | NUR ---
RN NOTES RECEIVED REPORT RE POTASSIUM=2.3 ; PAGED EPIC THRU Loreta HE SAID HE WILL HAVE REKHA NUNN CALL BACK.
[2018-01-25 08:00] VITALS: BP 128/78
--- NOTE | 2018-01-25 08:20 | NUR ---
RN NOTES PT AWAKE AND ALERT TO NAME AND PLACE ONLY. PT DENIES PAIN, NO SIGNS OF ANY ETOH WITHDRAWAL NOTED. LATHE SET UP PERSON RESTRAINTS IN PLACE; SKIN AND AND CIRCULATION WNL, SITTER AT BEDSIDE. WILL MONITOR.
[2018-01-25 08:31] LABS: HEMATOCRIT 27 % (39-51); HEMOGLOBIN 9.1 g/dL (13.5-17.5); MEAN CORPUSCULAR VOLUME 108 fL (80-96); RED BLOOD CELL COUNT(AUTO) 2.48 MIL/uL (4.5-6.0); WHITE BLOOD COUNT (AUTO) 5.6 K/uL (4.3-11.0)
[2018-01-25 08:32] LABS: MEAN CORPUSCULAR HGB CONC 34 g/dl (31.0-36.0); PLATELET COUNT (AUTO) 53 /CMM (150-450); RDW COEFFICIENT OF VARIATION 15.6 (11.5-15.0)
[2018-01-25] MEDS: FOLIC ACID 1 MG TABLET PO SCH (09:00)
[2018-01-25] MEDS: LACTOBACILLUS RHAMNOSUS GG 1 EACH CAP.SPRINK PO SCH ×2 (09:00→16:23)
[2018-01-25] MEDS ORDERED: POTASSIUM CHLORIDE 20 MEQ TAB.PRT.SR PO ONE ×2 (09:30→17:00)
[2018-01-25 09:52] LABS: APPEARANCE,URINE SL CLOUDY (CLEAR); BILIRUBIN,URINE 1+ (NEGATIVE); BLOOD, URINE 2+ Ery/uL (NEGATIVE); COLOR,URINE YELLOW (YELLOW); KETONES,URINE NEGATIVE (NEGATIVE); LEUKOCYTE ESTERASE ,URINE TRACE (NEGATIVE); NITRITE, URINE NEGATIVE (NEGATIVE); PROTEIN,URINE TRACE mg/dl (NEGATIVE); UGLUCOSE NEGATIVE (NEGATIVE); UROBILINOGEN,URINE 0.2 EU/dL (0.2)
[2018-01-25 09:54] LABS: CREATININE, URINE 62.8 MG/DL (30.0-125.0); URINE SODIUM, RANDOM 35 mmol/l (40-220); URINE TOTAL PROTEIN 55.9 mg/dL (0-11.9)
[2018-01-25 10:27] LABS: LYMPHOCYTES % (MANUAL) 3 % (16-48); MONOCYTES % (MANUAL) 24 % (0-11.0); NEUTROPHILS % (MANUAL) 73 (42-76)
[2018-01-25 10:36] LABS: BACTERIA,URINE Rare /HPF (None Seen); SQUAMOUS EPITHELIAL CELL,UR Few /HPF (None Seen)
--- NOTE | 2018-01-25 10:45 | NUR ---
RN NOTES PT SEEN AND ASSESSED BY DR AGUILAR; GAVE VERBAL ORDERS TO CHECK AMMONIA LEVEL; GIVE 40 MEQ OF POTASSIUM PO AFTER HIDA SCAN . IS AWARE THAT REKHA NUNN ALREADY ORDERED POTASSIUIM 40 MEQ OF IV. ORDERS NOTED AND CARRIED OUT.
[2018-01-25] MEDS: POTASSIUM CL. PREMIX PERIPHER. 50 ML IV SCH ×4 (10:53→16:17)
[2018-01-25 12:00] VITALS: BP 123/80
[2018-01-25 12:43] LABS: EOSINOPHIL,URINE None Seen
[2018-01-25] MEDS: Potassium Chloride 20 MEQ in IV NS 0.9% 1,000 ML IV PRN (15:00)
[2018-01-25] MEDS: SOD FERRIC GLUC 125 MG in IV NS 0.9% 100 ML IV SCH (15:04)
[2018-01-25 18:00] VITALS: BP 128/82
--- NOTE | 2018-01-25 19:10 | NUR ---
RN CLOSING NOTES NO SIGNIFICANT CHANGE NOTED. ENDORSED TO NEXT SHIFT RN FOR CONTINUITY OF CARE IN STABLE CONDITION.
--- NOTE | 2018-01-25 19:30 | NUR ---
MS RN NOTE RECEIVED PATIENT FROM DAY SHIFT, PATIENT IS ALERT AND ORIENTEDX2, NO S/S OF RESPIRATORY DISTRESS AND COMPLAINS OF RIGHT LEG PAIN 9/10, WILL ADMINISTER PAIN MED PRN. IV ON LEFT AC IS PATENT AND INTACT, FLUID IS RUNNING. SRX2X, BED IN LOW POSITION, CALL LIGHT WITHIN REACH, WILL CONTINUE TO MONITOR PATIENT.
[2018-01-25 20:00] VITALS: BP 127/78
[2018-01-25] MEDS: MORPHINE SULFATE INJ 4 MG/ML DISP.SYRIN IV PRN (20:03)
[2018-01-26] MEDS: VANCOMYCIN 500 MG in IV D5W 100ml IV SCH ×2 (03:52→16:23)
[2018-01-26 04:00] VITALS: BP 130/78
[2018-01-26] MEDS: LACTULOSE 10 G/15 ML UDC (PYXIS) PO SCH ×4 (05:47→23:32)
[2018-01-26 06:04] LABS: CALCIUM, SERUM 7.5 mg/dL (8.5-10.1); CREATININE 1.6 mg/dL (0.6-1.3); MAGNESIUM 1.5 mg/dL (1.8-2.4); PHOSPHORUS 3.3 mg/dL (2.5-4.9); POTASSIUM 2.9 mmol/L (3.5-5.1)
[2018-01-26 06:05] LABS: BASOPHILS % (AUTO) 0.7 % (0.0-2.0); EOSINOPHILS % (AUTO) 2.1 % (0.0-6.0); HEMATOCRIT 29 % (39-51); HEMOGLOBIN 9.6 g/dL (13.5-17.5); LYMPHOCYTES # (AUTO) 0.8 /CMM (0.8-4.8); LYMPHOCYTES % (AUTO) 11.9 % (20.0-44.0); MEAN CORPUSCULAR HGB CONC 33 g/dl (31.0-36.0); MEAN CORPUSCULAR VOLUME 109 fL (80-96); MONOCYTES # (AUTO) 1.3 /CMM (0.1-1.30); MONOCYTES % (AUTO) 19.8 % (2.0-12.0); NEUTROPHILS # (AUTO) 4.3 /CMM (1.8-8.9); NEUTROPHILS % (AUTO) 65.5 % (43.0-81.0); PLATELET COUNT (AUTO) 124 /CMM (150-450); RDW COEFFICIENT OF VARIATION 15.9 (11.5-15.0); RED BLOOD CELL COUNT(AUTO) 2.66 MIL/uL (4.5-6.0); WHITE BLOOD COUNT (AUTO) 6.6 K/uL (4.3-11.0)
--- NOTE | 2018-01-26 06:29 | NUR ---
MS RN NOTE PATIENT IS RESTING IN BED COMFORTABLY, NO ACUTE EVENT NOTED THROUGHOUT THE SHIFT. RELEASED RESTRAINTS FOR NOW, SITTER AT BED SIDE. IV ON LEFT AC IS PATENT AND INTACT, WILL ENDORSE TO DAY SHIFT NURSE FOR KRISTYN.
[2018-01-26 07:21] LABS: BAND % (MANUAL) 6 % (0.0-5.0); EOSINOPHILS % (MANUAL) 4 % (0-4); LYMPHOCYTES % (MANUAL) 8 % (16-48); MONOCYTES % (MANUAL) 25 % (0-11.0); NEUTROPHILS % (MANUAL) 57 (42-76)
[2018-01-26 08:00] VITALS: BP 114/71
[2018-01-26 08:08] LABS: IMMUNOGLOBULIN A, SERUM 676 mg/dL (90-386); IMMUNOGLOBULIN G, SERUM 1377 mg/dL (700-1600); IMMUNOGLOBULIN M, SERUM 136 mg/dL (20-172)
[2018-01-26] MEDS: LACTOBACILLUS RHAMNOSUS GG 1 EACH CAP.SPRINK PO SCH ×2 (08:08→16:23)
[2018-01-26] MEDS: PANTOPRAZOLE 40 MG TABLET.DR PO SCH (08:08)
[2018-01-26] MEDS: FOLIC ACID 1 MG TABLET PO SCH (08:08)
[2018-01-26] MEDS: MORPHINE SULFATE INJ 4 MG/ML DISP.SYRIN IV PRN (08:09)
[2018-01-26] MEDS ORDERED: POTASSIUM CL. PREMIX PERIPHER. 50 ML IV SCH (09:30)
[2018-01-26] MEDS ORDERED: Magnesium 1GM/D5W 100ML PREMIX 100 ML IV SCH (09:30)
[2018-01-26] MEDS: Potassium Chloride 20 MEQ in IV NS 0.9% 1,000 ML IV PRN ×2 (13:14→23:35)
[2018-01-26] MEDS: SOD FERRIC GLUC 125 MG in IV NS 0.9% 100 ML IV SCH (14:28)
--- NOTE | 2018-01-26 15:31 | NUR ---
patient aaox3 forgetful follow commands room air no sob nob labored breathing abdomen soft non tender diet tolerated pt denied chest pain any pain pt mild agitated 1;2 sitter at bedside pt able to ambulation with assistance will continue monitor
--- NOTE | 2018-01-26 19:50 | NUR ---
RN NOTES: RECEIVED REPORT FROM SHELBI MONTEZ. PT IN BED, AWAKE, KHMER SPEAKING ONLY. PT IS A/O X2, SPEECH IS CLEAR AND ABLE TO MAKE NEEDS KNOWN. SITTER AT BED SIDE. PT STATED HE'S BEEN HAVING DIARRHEA DUE TO THE MEDICATION HE'S TAKING. PT ON LACTULOSE EVERY 6HRS, LATEST AMMONIA LEVEL IS 18. DISCUSSED PLAN OF CARE TO THE PT. SAFETY PRECAUTIONS FOR FALL INITIATED, CALL LIGHT IN REACH, WILL CONTINUE MONITORING PT.
[2018-01-26 20:00] VITALS: BP 123/79
--- NOTE | 2018-01-26 20:00 | NUR ---
RN NOTES: IV ACCESS ON LEFT AC NOTED TO BE LEAKING AND INFILTRATED, REMOVED IV, APPLIED PRESSURED DRESSING, OFFLOADED ON PILLOWS. RESTARTED NEW IV ACCESS ON LEFT WRIST G 22, GOOD BLOOD RETURN NOTED. CONNECTED BACK TO IVF ORDERED.
--- NOTE | 2018-01-27 00:40 | NUR ---
RN NOTES: STOOL SPECIMEN COLLECTED, CONTACTED LAB TO HUMAN ANATOMY TEACHER SPECIMEN, STOOL FOR OB
[2018-01-27 03:18] VITALS: BP 123/76
--- NOTE | 2018-01-27 03:19 | NUR ---
RN NOTES: VS TAKEN AND RECORDED, ASKED PT IF HE HAS ANY PAIN, PT STATED HE HAS MILD PAIN ON HIS RIGHT KNEE, OFFERED PAIN MEDICATION, BUT PT REFUSED, ALL TRANSLATED BY ESTHER SANTOS
[2018-01-27] MEDS: VANCOMYCIN 500 MG in IV D5W 100ml IV SCH ×2 (03:23→17:27)
[2018-01-27] MEDS: LORAZEPAM INJ 2 MG/ML VIAL IV PRN ×2 (03:34→10:30)
--- NOTE | 2018-01-27 03:35 | NUR ---
PRN ATIVAN: 0.5MG IVP OF ATIVAN ADMINISTERED AT THIS TIME FOR PT S/S OF ALCOHOL WITHDRAWAL, AGITATION AND RESTLESSNESS. PT BEEN TRYING TO GET OUT OF BED AND LEAVE THE HOSPITAL HE STATED HE WANTS TO LEAVE THE HOSPITAL BECAUSE HE'S WORRIED ABOUT HIS FRIENDS WHOSE ALSO HOMELESS AND THAT HIS FRIENDS HAS NO RESIDENTIAL FOR TONIGHT. REASSURANCE PROVIDED TO PT. WILL CONTINUE MONITORING PT.
[2018-01-27 04:00] VITALS: BP 125/76
[2018-01-27] MEDS: LACTULOSE 10 G/15 ML UDC (PYXIS) PO SCH ×2 (05:14→12:41)
--- NOTE | 2018-01-27 05:14 | NUR ---
REFUSAL FOR LACTULOSE: ONCE AGAIN, PT REFUSED LACTULOSE, STATED HE'S BEEN HAVING TOO MUCH DIARRHEA, AND DOESNT WANT THE SAID MEDICATION. SITTER AT BED SIDE SPEAK SYRIAC AND TRANSLATE FOR THE PT. EDUCATION PROVIDED REGARDING MEDICATION COMPLIANCE, RISK AND BENEFITS.
[2018-01-27] MEDS ORDERED: PIPERACILLIN /TAZOBACTAM 3.375 G in IV D5W 50 ML IV SCH (06:00)
--- NOTE | 2018-01-27 06:37 | NUR ---
RN CLOSING NOTES: PT IN BED, AWAKE, REMAINS A/O X2, DENIES ANY PAIN OR DISCOMFORT AT THIS TIME, LEFT WRIST IV ACCESS REMAINS FREE FROM ANY S/S OF INFILTRATION OR REDNESS. INFUSING WITH NS WITH 20MEQ KCL AT 100ML/HR. VS REMAINS STABLE, NEEDS ATTENDED. SITTER AT BED SIDE. SAFETY PRECAUTIONS FOR FALL REMAINS ENGAGED, CALL LIGHT IN REACH, WILL ENDORSE TO DAY RN FOR CONTINUITY OF CARE.
[2018-01-27 06:40] LABS: BASOPHILS % (AUTO) 0.1 % (0.0-2.0); HEMATOCRIT 27 % (39-51); HEMOGLOBIN 9.2 g/dL (13.5-17.5); LYMPHOCYTES # (AUTO) 1.1 /CMM (0.8-4.8); LYMPHOCYTES % (AUTO) 9.9 % (20.0-44.0); MEAN CORPUSCULAR HGB CONC 34 g/dl (31.0-36.0); MEAN CORPUSCULAR VOLUME 109 fL (80-96); MONOCYTES # (AUTO) 1.5 /CMM (0.1-1.30); MONOCYTES % (AUTO) 13.3 % (2.0-12.0); NEUTROPHILS # (AUTO) 8.7 /CMM (1.8-8.9); NEUTROPHILS % (AUTO) 75.7 % (43.0-81.0); PLATELET COUNT (AUTO) 173 /CMM (150-450); RDW COEFFICIENT OF VARIATION 15.6 (11.5-15.0); RED BLOOD CELL COUNT(AUTO) 2.52 MIL/uL (4.5-6.0); WHITE BLOOD COUNT (AUTO) 11.5 K/uL (4.3-11.0)
[2018-01-27 07:10] LABS: ALBUMIN 1.9 g/dL (3.4-5.0); BILIRUBIN,TOTAL 5.2 mg/dL (0.2-1.0); CALCIUM, SERUM 7.6 mg/dL (8.5-10.1); CREATININE 1.4 mg/dL (0.6-1.3); MAGNESIUM 1.8 mg/dL (1.8-2.4); PHOSPHORUS 1.4 mg/dL (2.5-4.9); POTASSIUM 2.9 mmol/L (3.5-5.1); TOTAL PROTEIN, SERUM 6.4 g/dL (6.4-8.2)
--- NOTE | 2018-01-27 07:30 | NUR ---
INITIAL PT IN BED, AWAKE, REMAINS A/O X2, DENIES ANY PAIN OR DISCOMFORT AT THIS TIME, LEFT WRIST IV ACCESS REMAINS FREE FROM ANY S/S OF INFILTRATION OR REDNESS. INFUSING WITH NS WITH 20MEQ KCL AT 100ML/HR. VS REMAINS STABLE, SITTER AT BED SIDE. SAFETY PRECAUTIONS FOR FALL REMAINS ENGAGED, CALL LIGHT IN REACH, BED IN LOW POSITION LOCKED WILL CONTINUE TO MONITOR.
[2018-01-27 08:30] LABS: LYMPHOCYTES % (MANUAL) 12 % (16-48); MONOCYTES % (MANUAL) 13 % (0-11.0); NEUTROPHILS % (MANUAL) 72 (42-76)
[2018-01-27 08:31] LABS: BAND % (MANUAL) 2 % (0.0-5.0); EOSINOPHILS % (MANUAL) 1 % (0-4)
[2018-01-27] MEDS: LACTOBACILLUS RHAMNOSUS GG 1 EACH CAP.SPRINK PO SCH ×2 (09:54→17:29)
[2018-01-27] MEDS: FOLIC ACID 1 MG TABLET PO SCH (09:54)
[2018-01-27] MEDS: POTASSIUM CHLORIDE 20 MEQ TAB.PRT.SR PO SCH ×3 (09:54→13:48)
[2018-01-27] MEDS: PANTOPRAZOLE 40 MG TABLET.DR PO SCH (09:55)
[2018-01-27] MEDS ORDERED: K PHOS NEUTRAL 250 MG TABLET PO ONE (10:30)
[2018-01-27 12:00] VITALS: BP 118/73
[2018-01-27] MEDS: SOD FERRIC GLUC 125 MG in IV NS 0.9% 100 ML IV SCH (13:48)
[2018-01-27] MEDS: Potassium Chloride 20 MEQ in IV NS 0.9% 1,000 ML IV PRN (13:48)
[2018-01-27 15:37] LABS: OCCULT BLOOD STOOL NEGATIVE (NEGATIVE)
[2018-01-27 20:00] VITALS: BP 136/89
[2018-01-27] MEDS ORDERED: PIPERACILLIN /TAZOBACTAM 3.375 G in IV D5W 50 ML IV ONE (20:00)
[2018-01-27] MEDS ORDERED: PIPERACILLIN /TAZOBACTAM 3.375 G VIAL IV ONE (20:55)
[2018-01-27] MEDS: ACETAMINOPHEN 325 MG TABLET PO PRN (21:36)
[2018-01-27] MEDS: MORPHINE SULFATE INJ 4 MG/ML DISP.SYRIN IV PRN (21:39)
[2018-01-28] MEDS: Potassium Chloride 20 MEQ in IV NS 0.9% 1,000 ML IV PRN (00:41)
--- NOTE | 2018-01-28 00:51 | NUR ---
RN NOTE NOTIFIED PHARMACIST AFTER HOURS ANGELITO THAT ZOSYN 3.375 MG WAS ADMINISTERED AT 2000 AND THE NEXT DOSE SCHEDULED AT 0000, ANGELITO PHARMACIST SAID THAT HE WILL FIX TIME TO 3AM, CHARGE NURSE IS AWARE
[2018-01-28] MEDS: LORAZEPAM INJ 2 MG/ML VIAL IV PRN (01:13)
[2018-01-28] MEDS ORDERED: PIPERACILLIN /TAZOBACTAM 3.375 G VIAL IV ONE (02:52)
[2018-01-28] MEDS ORDERED: PIPERACILLIN /TAZOBACTAM 3.375 G in IV D5W 50 ML IV SCH (03:00)
[2018-01-28] MEDS ORDERED: VANCOMYCIN 1 GM VIAL ONE (03:11)
[2018-01-28] MEDS: VANCOMYCIN 500 MG in IV D5W 100ml IV SCH ×2 (03:20→16:13)
[2018-01-28 04:00] VITALS: BP 132/89
[2018-01-28] MEDS: LACTULOSE 10 G/15 ML UDC (PYXIS) PO SCH ×4 (05:49→17:14)
--- NOTE | 2018-01-28 06:50 | NUR ---
RN NOTE NO ACUTE CHANGES ON MY SHIFT, TURNED AND REPOSITION Q 2 HOURS, SKIN PICTURES TAKEN AND PLACED IN THE CHART, WILL ENDORSE TO AM SHIFT TO CONTINUE CARE
[2018-01-28 07:10] LABS: BASOPHILS % (AUTO) 0.2 % (0.0-2.0); HEMATOCRIT 26 % (39-51); HEMOGLOBIN 8.4 g/dL (13.5-17.5); LYMPHOCYTES # (AUTO) 0.9 /CMM (0.8-4.8); LYMPHOCYTES % (AUTO) 7.8 % (20.0-44.0); MEAN CORPUSCULAR HGB CONC 33 g/dl (31.0-36.0); MEAN CORPUSCULAR VOLUME 111 fL (80-96); MONOCYTES # (AUTO) 1.1 /CMM (0.1-1.30); MONOCYTES % (AUTO) 9.7 % (2.0-12.0); NEUTROPHILS # (AUTO) 9.6 /CMM (1.8-8.9); NEUTROPHILS % (AUTO) 81.3 % (43.0-81.0); PLATELET COUNT (AUTO) 173 /CMM (150-450); RDW COEFFICIENT OF VARIATION 15.8 (11.5-15.0); RED BLOOD CELL COUNT(AUTO) 2.32 MIL/uL (4.5-6.0); WHITE BLOOD COUNT (AUTO) 11.8 K/uL (4.3-11.0)
--- NOTE | 2018-01-28 07:19 | NUR ---
RN OPENING NOTES RECEIVED PATIENT IN BED SLEEPING, AROUSES EASILY. A/OX2. NO ACUTE DISTRESS, NO SOB. DENIED PAIN OR DISCOMFORT AT THE MOMENT. SITTER AT BEDSIDE FOR SAFETY. NOTED WITH BILATERAL SOFT WRIST RESTRAINTS, PER NIGHT RN PATIENT PULLING OUT IV LINES. IV SITE INTACT AND PATENT. KEPT PATIENT SAFE AND COMFORTABLE. BED IN LOW LOCKED POSITION, SIDERAILS UPX2, SEMIFOWLERS, CALL LIGHT IN REACH. WILL CONTINUE TO MONITOR ACCORDINGLY.
[2018-01-28 07:31] LABS: CALCIUM, SERUM 7.1 mg/dL (8.5-10.1); CREATININE 1.4 mg/dL (0.6-1.3); MAGNESIUM 1.6 mg/dL (1.8-2.4); PHOSPHORUS 2.2 mg/dL (2.5-4.9); POTASSIUM 2.9 mmol/L (3.5-5.1)
[2018-01-28 08:00] VITALS: BP_SYST 131; BP_SYST 133; BP_DIAS 77
[2018-01-28] MEDS: LACTOBACILLUS RHAMNOSUS GG 1 EACH CAP.SPRINK PO SCH ×2 (09:11→17:14)
[2018-01-28] MEDS: FOLIC ACID 1 MG TABLET PO SCH (09:11)
[2018-01-28] MEDS: PANTOPRAZOLE 40 MG TABLET.DR PO SCH (09:11)
--- NOTE | 2018-01-28 09:30 | NUR ---
RN NOTES PATIENT OFF RESTRAINTS AT THE MOMENT, PATIENT IS CALM AND COOPERATIVE. SITTER AT BEDSIDE FOR SAFETY. WILL MONITOR ACCORDINGLY.
--- NOTE | 2018-01-28 11:00 | NUR ---
PATIENT OFF RESTRAINTS AT THE MOMENT, PATIENT IS CALM AND COOPERATIVE. WILL MONITOR ACCORDINGLY.
[2018-01-28] MEDS: Magnesium 1GM/D5W 100ML PREMIX 100 ML IV SCH ×2 (11:14→13:03)
[2018-01-28] MEDS ORDERED: K PHOS NEUTRAL 250 MG TABLET PO ONE (11:30)
[2018-01-28] MEDS ORDERED: POTASSIUM CHLORIDE 20 MEQ POWDER PACKET PO ONE (12:00)
[2018-01-28] MEDS: PIPERACILLIN /TAZOBACTAM 3.375 G in IV D5W 50 ML IV SCH ×2 (12:11→17:05)
[2018-01-28] MEDS: SOD FERRIC GLUC 125 MG in IV NS 0.9% 100 ML IV SCH (14:21)
[2018-01-28] MEDS: Potassium Chloride 40 MEQ in IV NS 0.9% 1,000 ML IV PRN (15:48)
[2018-01-28 16:00] VITALS: BP 135/82
--- NOTE | 2018-01-28 19:25 | NUR ---
PATIENT IN STABLE CONDITION. ALL NEEDS ATTENDED AND PROVIDED. ALL DUE MEDICATIONS GIVEN ORDERED. KEPT PATIEN SAFE AND COMFORTABLE. SITTER AT BEDSIDE FOR SAFETY. OFF RESTRAINTS, PATIENT IS CALM AND COOPERATIVE. BED IN LOW/LOCKED POSITION, SIDERAILS UPX2, CALL LIGHT IN REACH. ENDORSED TO NIGHT RN FOR KRISTYN.
[2018-01-28 20:00] VITALS: BP 133/83
--- NOTE | 2018-01-28 20:00 | NUR ---
RN NOTE RECEIVED PATIENT IN THE BED, OFF RESTRAINTS, NO AGGRESSIVE BEHAVIOR NOTED, TEMPERATURE OF 101.6F NOTED, COOLING MEASURES PROVIDED, MED. PROVIDED, WILL CONTINUE TO MONITOR PATIENT
[2018-01-28] MEDS: ACETAMINOPHEN 325 MG TABLET PO PRN (20:55)
[2018-01-29] MEDS: LACTULOSE 10 G/15 ML UDC (PYXIS) PO SCH ×5 (00:07→23:32)
[2018-01-29] MEDS: PIPERACILLIN /TAZOBACTAM 3.375 G in IV D5W 50 ML IV SCH ×5 (00:07→23:32)
[2018-01-29 04:00] VITALS: BP 145/85
[2018-01-29] MEDS: Potassium Chloride 40 MEQ in IV NS 0.9% 1,000 ML IV PRN (04:42)
[2018-01-29] MEDS: VANCOMYCIN 500 MG in IV D5W 100ml IV SCH ×2 (04:42→16:50)
[2018-01-29 06:05] LABS: CALCIUM, SERUM 7.5 mg/dL (8.5-10.1); CREATININE 1.2 mg/dL (0.6-1.3); MAGNESIUM 1.8 mg/dL (1.8-2.4); PHOSPHORUS 2.6 mg/dL (2.5-4.9); POTASSIUM 3.1 mmol/L (3.5-5.1)
--- NOTE | 2018-01-29 07:05 | NUR ---
RN NOTE NO ACUTE CHANGES ON MY SHIFT. ALL NEEDS ATTENDED AND PROVIDED. ALL DUE MEDICATIONS GIVEN ORDERED. TURNED AND REPOSITION Q 2 HOURS . SITTER AT BEDSIDE FOR SAFETY. OFF RESTRAINTS, PATIENT IS ASLEEP. PATIENT IS CALM AND COOPERATIVE. BED IN LOW/LOCKED POSITION, SIDERAILS UPX2, CALL LIGHT IN REACH. ENDORSED TO AM RN TO CONTINUE CARE.
--- NOTE | 2018-01-29 07:20 | NUR ---
SOAP MIXER NOTE RECEIVED PATIENT IN STABLE CONDITION RESTING IN BED. IV FLUIDS INFUSING ORDERED. SITTER AT BEDSIDE. NO RESPIRATORY DISTRESS NOTED, ON ROOM AIR. BED LOW AND LOCKED, WILL CONTINUE TO MONITOR CLOSELY.
[2018-01-29 08:00] VITALS: BP 130/81
[2018-01-29 08:09] LABS: *SPE A/G RATIO 0.6 (0.7-1.7); *SPE ALBUMIN 2.2 g/dL (2.9-4.4); *SPE ALPHA-1-GLOBULIN 0.4 g/dL (0.0-0.4); *SPE ALPHA-2-GLOBULIN 0.6 g/dL (0.4-1.0); *SPE BETA GLOBULIN 1.2 g/dL (0.7-1.3); *SPE GLOBULIN, TOTAL 3.6 g/dL (2.2-3.9); *SPE M-SPIKE Not Observed g/dL (Not Observed); *SPEGAMMA GLOBULIN 1.4 g/dL (0.4-1.8)
[2018-01-29] MEDS: PANTOPRAZOLE 40 MG TABLET.DR PO SCH (09:54)
[2018-01-29] MEDS: LACTOBACILLUS RHAMNOSUS GG 1 EACH CAP.SPRINK PO SCH ×2 (09:54→16:50)
[2018-01-29] MEDS: FOLIC ACID 1 MG TABLET PO SCH (09:54)
[2018-01-29 16:00] VITALS: BP 120/78
[2018-01-29] MEDS: ACETAMINOPHEN 325 MG TABLET PO PRN (17:52)
--- NOTE | 2018-01-29 19:54 | NUR ---
SHELL MOLD BONDER CLOSING NOTE PATIENT RESTING IN BED IN STABLE CONDITION, NO DISTRESS NOTED. IV SITE ON RIGHT HAND INTACT INFUSING FLUIDS ORDERED. ALL NEEDS MET AT THIS TIME. SITTER AT BEDSIDE. BED LOW AND LOCKED, CARE ENDORSED TO SENIOR COGNOS DEVELOPER NURSE.
[2018-01-29 20:00] VITALS: BP 134/80
--- NOTE | 2018-01-29 20:24 | NUR ---
RN OPENING NOTES RECEIVED REPORT FROM DORIE MONTEZ. PATIENT A/A/O X2, MOSTLY AUSTRALIAN-SPEAKING BUT ABLE TO MAKE SOME NEEDS KNOWN & STATE PAIN. BREATHING EVEN & UNLABORED, TOLERATING ROOM AIR. RADIAL PULSES PRESENT & BOUNDING. DENIES ANY SOB OR DIFFICULTY BREATHING. RIGHT HAND IV #22 INTACT & PATENT W/ DRESSING CDI & IVF NS W/ 40 MEQ KCL INFUSING WELL @ 100 ML/HR. DENIES ANY PAIN OR DISCOMFORT @ THIS TIME. SAFETY MEASURES W/ CALL LIGHT WITHIN REACH & SITTER @ BEDSIDE. WILL CONTINUE TO MONITOR.
[2018-01-30 04:00] VITALS: BP 124/76
[2018-01-30] MEDS: VANCOMYCIN 500 MG in IV D5W 100ml IV SCH ×2 (05:17→16:08)
[2018-01-30] MEDS: LACTULOSE 10 G/15 ML UDC (PYXIS) PO SCH ×4 (05:44→23:33)
[2018-01-30] MEDS: PIPERACILLIN /TAZOBACTAM 3.375 G in IV D5W 50 ML IV SCH ×4 (05:45→23:32)
[2018-01-30 06:13] LABS: CALCIUM, SERUM 7.6 mg/dL (8.5-10.1); CREATININE 1.4 mg/dL (0.6-1.3); POTASSIUM 3.1 mmol/L (3.5-5.1)
[2018-01-30 06:15] LABS: URIC ACID 2.3 mg/dL (2.6-7.2)
[2018-01-30 06:17] LABS: C-REACTIVE PROTEIN 6.3 mg/dL (0.0-0.9)
[2018-01-30 06:18] LABS: ALBUMIN 1.6 g/dL (3.4-5.0); BILIRUBIN,DIRECT 2.5 mg/dL (0.0-0.2); BILIRUBIN,TOTAL 3.2 mg/dL (0.2-1.0); TOTAL PROTEIN, SERUM 6.4 g/dL (6.4-8.2)
[2018-01-30 06:41] LABS: BASOPHILS % (AUTO) 0.3 % (0.0-2.0); EOSINOPHILS % (AUTO) 0.7 % (0.0-6.0); HEMATOCRIT 26 % (39-51); HEMOGLOBIN 8.5 g/dL (13.5-17.5); LYMPHOCYTES # (AUTO) 0.9 /CMM (0.8-4.8); MEAN CORPUSCULAR HGB CONC 33 g/dl (31.0-36.0); MEAN CORPUSCULAR VOLUME 113 fL (80-96); MONOCYTES # (AUTO) 0.9 /CMM (0.1-1.30); MONOCYTES % (AUTO) 7.6 % (2.0-12.0); NEUTROPHILS # (AUTO) 9.6 /CMM (1.8-8.9); NEUTROPHILS % (AUTO) 83.4 % (43.0-81.0); PLATELET COUNT (AUTO) 183 /CMM (150-450); RDW COEFFICIENT OF VARIATION 17.8 (11.5-15.0); WHITE BLOOD COUNT (AUTO) 11.5 K/uL (4.3-11.0)
[2018-01-30 08:00] VITALS: BP 138/87
[2018-01-30] MEDS ORDERED: POTASSIUM CHLORIDE 20 MEQ TAB.PRT.SR PO ONE (08:30)
[2018-01-30] MEDS: FOLIC ACID 1 MG TABLET PO SCH (08:58)
[2018-01-30] MEDS: LACTOBACILLUS RHAMNOSUS GG 1 EACH CAP.SPRINK PO SCH ×2 (08:58→16:08)
[2018-01-30] MEDS: PANTOPRAZOLE 40 MG TABLET.DR PO SCH (08:59)
[2018-01-30] MEDS: POTASSIUM CL. PREMIX PERIPHER. 50 ML IV SCH ×2 (09:00→09:30)
--- NOTE | 2018-01-30 09:10 | NUR ---
RN NOTES SCANNED MEDIATIONS FOR REGISTRY NURSE MICHEL.GOT ORDER FROM DR AGUILAR, FOR R KNEE ULTRASOUND AND TAP IF FLUID PRESENT.PLACED ORDER AND ENDORSED TO NURSE PEARSON.
[2018-01-30 12:00] VITALS: BP 138/87
--- NOTE | 2018-01-30 16:56 | NUR ---
NURSING NOTES RECEIVED PATIENT IN BED SLEEPING, AROUSES EASILY. A/OX2. NO ACUTE DISTRESS, NO SOB. DENIED PAIN OR DISCOMFORT AT THE MOMENT. SITTER AT BEDSIDE FOR SAFETY. NOTED WITH BILATERAL SOFT WRIST RESTRAINTS, PER NIGHT RN PATIENT PULLING OUT IV LINES. IV SITE INTACT AND PATENT. KEPT PATIENT SAFE AND COMFORTABLE. BED IN LOW LOCKED POSITION, SIDERAILS UPX2, SEMIFOWLERS, CALL LIGHT IN REACH. WILL CONTINUE TO TREAT ANDMONITOR. WILL ENDORSE TO NEXT SHIFT NURSE WHEN NEEDED.
[2018-01-30] MEDS: Potassium Chloride 40 MEQ in IV NS 0.9% 1,000 ML IV PRN (17:17)
[2018-01-30] MEDS: MORPHINE SULFATE INJ 4 MG/ML DISP.SYRIN IV PRN ×2 (17:25→23:33)
--- NOTE | 2018-01-30 18:57 | NUR ---
nursing notes will endorse to manufacturing shift supervisor to call orthopedic docotr to drain right knee.
[2018-01-30 20:00] VITALS: BP_SYST 133; BP_SYST 140; BP_DIAS 74; BP_DIAS 83
--- NOTE | 2018-01-30 20:00 | NUR ---
BRANDON NURSING NOTES RECEIVED BEDSIDE REPORT FROM AM NURSE. PATIENT IN BED AWAKE, A/OX2-3, SOLOMON ISLANDER SPEAKING. ON RA WITH SPO2 OF 100%, NO ACUTE DISTRESS, NO SOB NOTED AT THIS TIME. COMPLAINS OF RIGHT KNEE PAIN 3/10 AT THE MOMENT. SITTER AT BEDSIDE FOR SAFETY. IV SITE INTACT AND PATENT. KEPT PATIENT SAFE AND COMFORTABLE. BED IN LOW LOCKED POSITION, SIDE RAILS UPX2, CALL LIGHT IN REACH. WILL CONTINUE TO TREAT AND MONITOR.
--- NOTE | 2018-01-30 23:48 | NUR ---
RN NOTE PATIENT COMPLAINS OF ABDOMINAL PAIN 8 AND MORPHINE 2MG IV PUSH HAS BEEN ADMINISTERED. PATIENT IS INSTRUCTED NOT TO STAND UP AND USE THE CALL LIGHT FOR HELP. WILL MONITOR PATIENT CLOSELY AND REASSESS PAIN LEVEL.
[2018-01-31 04:00] VITALS: BP 139/85
[2018-01-31] MEDS: VANCOMYCIN 500 MG in IV D5W 100ml IV SCH ×2 (04:31→15:44)
[2018-01-31] MEDS: PIPERACILLIN /TAZOBACTAM 3.375 G in IV D5W 50 ML IV SCH ×3 (06:01→17:38)
[2018-01-31] MEDS: LACTULOSE 10 G/15 ML UDC (PYXIS) PO SCH ×3 (06:01→17:17)
[2018-01-31 06:30] VITALS: BP 139/85
--- NOTE | 2018-01-31 06:40 | NUR ---
RN CLOSING NOTES PATIENT RESTING IN BED IN STABLE CONDITION, NO DISTRESS NOTED. IV SITE ON RIGHT HAND INTACT INFUSING FLUIDS ORDERED. ALL NEEDS MET AT THIS TIME. BED LOW AND LOCKED, CARE WILL BE ENDORSED TO DAY SHIFT NURSE FOR WOOD TREATING INSPECTOR.
[2018-01-31] MEDS: Potassium Chloride 40 MEQ in IV NS 0.9% 1,000 ML IV PRN ×2 (06:54→20:24)
[2018-01-31 07:38] LABS: BASOPHILS # (AUTO) 0.1 /CMM (0.0-0.2); BASOPHILS % (AUTO) 0.5 % (0.0-2.0); EOSINOPHILS % (AUTO) 1.1 % (0.0-6.0); HEMATOCRIT 27 % (39-51); HEMOGLOBIN 8.7 g/dL (13.5-17.5); LYMPHOCYTES # (AUTO) 1.3 /CMM (0.8-4.8); LYMPHOCYTES % (AUTO) 10.7 % (20.0-44.0); MEAN CORPUSCULAR HGB CONC 32 g/dl (31.0-36.0); MEAN CORPUSCULAR VOLUME 115 fL (80-96); MONOCYTES # (AUTO) 0.8 /CMM (0.1-1.30); MONOCYTES % (AUTO) 6.5 % (2.0-12.0); NEUTROPHILS # (AUTO) 9.6 /CMM (1.8-8.9); NEUTROPHILS % (AUTO) 81.2 % (43.0-81.0); PLATELET COUNT (AUTO) 190 /CMM (150-450); RDW COEFFICIENT OF VARIATION 18.5 (11.5-15.0); RED BLOOD CELL COUNT(AUTO) 2.38 MIL/uL (4.5-6.0); WHITE BLOOD COUNT (AUTO) 11.8 K/uL (4.3-11.0)
[2018-01-31 07:50] LABS: ALBUMIN 1.6 g/dL (3.4-5.0); BILIRUBIN,DIRECT 2.3 mg/dL (0.0-0.2); TOTAL PROTEIN, SERUM 6.6 g/dL (6.4-8.2)
[2018-01-31 07:54] LABS: CALCIUM, SERUM 7.7 mg/dL (8.5-10.1); CREATININE 1.4 mg/dL (0.6-1.3); POTASSIUM 3.2 mmol/L (3.5-5.1)
[2018-01-31 08:00] VITALS: BP 134/75
[2018-01-31] MEDS: FOLIC ACID 1 MG TABLET PO SCH (08:24)
[2018-01-31] MEDS: PANTOPRAZOLE 40 MG TABLET.DR PO SCH (08:24)
[2018-01-31] MEDS: LACTOBACILLUS RHAMNOSUS GG 1 EACH CAP.SPRINK PO SCH ×2 (08:25→16:50)
[2018-01-31 08:54] LABS: LYMPHOCYTES % (MANUAL) 17 % (16-48); MONOCYTES % (MANUAL) 5 % (0-11.0); NEUTROPHILS % (MANUAL) 78 (42-76)
[2018-01-31 12:00] VITALS: BP_SYST 128; BP_SYST 139; BP_DIAS 80; BP_DIAS 85
--- NOTE | 2018-01-31 12:03 | NUR ---
nursing notes RECEIVED PATIENT IN BED SLEEPING, AROUSES EASILY. A/OX2. NO ACUTE DISTRESS, NO SOB. DENIED PAIN OR DISCOMFORT AT THE MOMENT. . IV SITE INTACT AND PATENT. KEPT PATIENT SAFE AND COMFORTABLE. BED IN LOW LOCKED POSITION, SIDERAILS UPX2, SEMIFOWLERS, CALL LIGHT IN REACH. WILL CONTINUE TO TREAT AND MONITOR.
--- NOTE | 2018-01-31 12:05 | NUR ---
nursing notes contacted Dr. [facility] to request another drainage of the right knee for the patient. waiting for a call or message back from the doctor. Also contacted Dr. Donato for potassium of 3.2 from today's labs results. waiting for a call or message back. patient is stable. will continue to treat and monitor.
--- NOTE | 2018-01-31 13:55 | NUR ---
nursing notes got a call from lab about the right knee fluid. was informed that the specimen was not collected in a sterile container also the speciman cell count clotted and lab is only able to perform the crystal and gram stain only. patient is stable will continue to treat and monitor.
--- NOTE | 2018-01-31 15:29 | NUR ---
nursing notes doctor came by to drain fluids today from the right knee. waled the specimen over himself and dropped it off at laboratory. Addendum: 01/31/18 at 1531 by Tamar Kimbrough RN nursing notes doctor came by to drain fluids today from the right knee. walked the specimen over himself and dropped it off at laboratory.
[2018-01-31] MEDS ORDERED: POTASSIUM CHLORIDE 20 MEQ TAB.PRT.SR PO SCH ×2 (15:30→21:00)
[2018-01-31 16:00] VITALS: BP 128/80
[2018-01-31] MEDS ORDERED: POTASSIUM CHLORIDE 20 MEQ TAB.PRT.SR PO ONE ×2 (16:30→21:00)
[2018-01-31] MEDS: ONDANSETRON HCL/PF 4 MG/2 ML VIAL IVP PRN (17:00)
--- NOTE | 2018-01-31 19:20 | NUR ---
RN OPENING MS NOTES RECEIVED PATIENT IN BED AWAKE ALERT AND ORIENTED X 2 ,SIERRA LEONEAN SPEAKER, ABLE TO MAKE SIMPLE NEEDS KNOWN, RESPIRATIONS EVEN AND UNLABORED WITH EQUAL RISE AND FALL OF CHEST, DENIES ANY PAIN OR DISCOMFORT AT THIS TIME, NOTED IV SITE TO RIGHT HAND #22 G INTACT AND PATENT, NO REDNESS, NO INFILTRATION PRESENT, IVF POTASSIUM CHLORIDE RUNNING ORDERED. SAFETY PRECAUTIONS IN PLACE, LOW BED AND LOCKED, BED ALARM IN PLACE, CALL LIGHT KEPT WITHIN REACH FLUIDS OFFERED ALL NEEDS ATTENDED AT THIS TIME, REMAINS COMFORTABLE WILL CONTINUE TO MONITOR.
[2018-01-31 20:00] VITALS: BP 136/79
[2018-02-01] MEDS: LACTULOSE 10 G/15 ML UDC (PYXIS) PO SCH ×4 (00:11→17:34)
[2018-02-01] MEDS: PIPERACILLIN /TAZOBACTAM 3.375 G in IV D5W 50 ML IV SCH ×4 (00:11→17:33)
[2018-02-01 04:00] VITALS: BP 133/82
[2018-02-01] MEDS: ACETAMINOPHEN 325 MG TABLET PO PRN ×2 (04:12→16:40)
[2018-02-01] MEDS: VANCOMYCIN 500 MG in IV D5W 100ml IV SCH ×2 (04:13→16:40)
--- NOTE | 2018-02-01 04:20 | NUR ---
RN MS NOTES NOTED WITH MILD TEMPERATURE OF 100.6 COOLING MEASURES PROVIDED AND PO TYLENOL GIVEN ORDERED PRN FOR FEVER,WILL CONTINUE TO MONITOR, PATIENT APPEARS COMFORTABLE AT THIS TIME, IN NO APPARENT DISTRESS.
--- NOTE | 2018-02-01 06:32 | NUR ---
RN CLOSING MS NOTES PATIENT IN BED SLEEPING BUT EASILY AROUSABLE ALERT AND ORIENTED X 2 ,OMANI SPEAKER, ABLE TO MAKE SIMPLE NEEDS KNOWN, RESPIRATIONS EVEN AND UNLABORED WITH EQUAL RISE AND FALL OF CHEST, DENIES ANY PAIN OR DISCOMFORT AT THIS TIME, IV SITE TO RIGHT HAND #22 G INTACT AND PATENT, NO REDNESS, NO INFILTRATION PRESENT, IVF POTASSIUM CHLORIDE 40MEQ RUNNING ORDERED. ANTIBIOTICS ORDERED ADMINISTERED NOTED TEMPERATURE DECREASED TO 99.6, TYLENOL EFFECTIVE, SAFETY PRECAUTIONS IN PLACE, LOW BED AND LOCKED, BED ALARM IN PLACE, CALL LIGHT KEPT WITHIN REACH FLUIDS OFFERED ALL NEEDS ATTENDED AT THIS TIME, REMAINS COMFORTABLE WILL CONTINUE TO MONITOR AND ENDORSE TO NEXT SHIFT, HAD 2 BOWEL MOVEMENTS, PERINEAL CARE PROVIDED APPLIED SKIN BARRIER CREAM FOR PERINEAL REDNESS, PATIENT REPOSITIONED FOR COMFORT, RIGHT KNEE ALIVIA WRAP INTACT AND DRY. NO OTHER CHANGES NOTED THROUGH SHIFT, WILL CONTINUE TO MONITOR AND ENDORSE TO NEXT SHIFT. Addendum: 02/01/18 at 0642 by SUBHA WHITE RN BOTH HEELS FLOATED WITH PILLOWS FOR SKIN MANAGEMENT AND PREVENTION.
[2018-02-01 06:43] LABS: CALCIUM, SERUM 7.3 mg/dL (8.5-10.1); CREATININE 1.1 mg/dL (0.6-1.3)
[2018-02-01] MEDS: PANTOPRAZOLE 40 MG TABLET.DR PO SCH (07:30)
[2018-02-01 08:00] VITALS: BP 123/76
[2018-02-01] MEDS: LACTOBACILLUS RHAMNOSUS GG 1 EACH CAP.SPRINK PO SCH ×2 (08:31→16:40)
[2018-02-01] MEDS: FOLIC ACID 1 MG TABLET PO SCH (08:31)
[2018-02-01] MEDS: ONDANSETRON HCL/PF 4 MG/2 ML VIAL IVP PRN (09:42)
[2018-02-01 12:00] VITALS: BP_SYST 135; BP_SYST 138; BP_DIAS 63; BP_DIAS 84
[2018-02-01 16:00] VITALS: BP 135/63
[2018-02-01 20:00] VITALS: BP 133/78
[2018-02-01] MEDS: Potassium Chloride 40 MEQ in IV NS 0.9% 1,000 ML IV PRN (20:43)
[2018-02-01] MEDS: HYDROCODONE/APAP 5/325MG 1 EACH TABLET PO PRN (20:43)
[2018-02-02] MEDS: LACTULOSE 10 G/15 ML UDC (PYXIS) PO SCH ×5 (00:17→23:13)
[2018-02-02] MEDS: PIPERACILLIN /TAZOBACTAM 3.375 G in IV D5W 50 ML IV SCH ×5 (00:19→23:13)
[2018-02-02 04:00] VITALS: BP 136/84
[2018-02-02] MEDS: VANCOMYCIN 500 MG in IV D5W 100ml IV SCH ×2 (04:06→17:07)
[2018-02-02 06:34] LABS: BASOPHILS # (AUTO) 0.1 /CMM (0.0-0.2); BASOPHILS % (AUTO) 0.5 % (0.0-2.0); EOSINOPHILS % (AUTO) 1.5 % (0.0-6.0); HEMATOCRIT 28 % (39-51); HEMOGLOBIN 8.8 g/dL (13.5-17.5); MEAN CORPUSCULAR HGB CONC 32 g/dl (31.0-36.0); MEAN CORPUSCULAR VOLUME 116 fL (80-96); MONOCYTES # (AUTO) 0.8 /CMM (0.1-1.30); MONOCYTES % (AUTO) 8.2 % (2.0-12.0); NEUTROPHILS # (AUTO) 8.2 /CMM (1.8-8.9); NEUTROPHILS % (AUTO) 79.8 % (43.0-81.0); PLATELET COUNT (AUTO) 193 /CMM (150-450); RDW COEFFICIENT OF VARIATION 17.8 (11.5-15.0); RED BLOOD CELL COUNT(AUTO) 2.42 MIL/uL (4.5-6.0); WHITE BLOOD COUNT (AUTO) 10.3 K/uL (4.3-11.0)
[2018-02-02 06:42] LABS: CALCIUM, SERUM 7.8 mg/dL (8.5-10.1); CREATININE 1.5 mg/dL (0.6-1.3); POTASSIUM 3.8 mmol/L (3.5-5.1)
[2018-02-02 08:00] VITALS: BP 143/77
--- NOTE | 2018-02-02 08:07 | NUR ---
RN INITIAL NOTES RECEIVED PT AWAKE AND ALERT NO SIGNS OF ACUTE DISTRESS. PT DENIES PAIN.SAFETY ENSURED. WILL MONITOR.
[2018-02-02] MEDS: LACTOBACILLUS RHAMNOSUS GG 1 EACH CAP.SPRINK PO SCH ×2 (08:53→16:14)
[2018-02-02] MEDS: PANTOPRAZOLE 40 MG TABLET.DR PO SCH (08:53)
[2018-02-02] MEDS: FOLIC ACID 1 MG TABLET PO SCH (08:53)
[2018-02-02 16:00] VITALS: BP 113/70
[2018-02-02 16:21] LABS: ALBUMIN 1.6 g/dL (3.4-5.0); BILIRUBIN,DIRECT 1.8 mg/dL (0.0-0.2); BILIRUBIN,TOTAL 2.2 mg/dL (0.2-1.0); TOTAL PROTEIN, SERUM 6.8 g/dL (6.4-8.2)
[2018-02-02] MEDS: Potassium Chloride 40 MEQ in IV NS 0.9% 1,000 ML IV PRN (17:08)
--- NOTE | 2018-02-02 19:15 | NUR ---
RN CLOSING NOTES ENDORSED PT IN STABLE CONDITION
--- NOTE | 2018-02-02 19:20 | NUR ---
RN NOTES: RECEIVED ASLEEP ON BED, SEMI FOWLERS POSITION,BRP WITH ASSIST, A/OX2, SLOVAK SPEAKING, IV CANNULA INTACT ON RH G#22, IVF OF NS + 40 mEq KCL AT 100 ML/HR ONGOING, BED LOW AND LOCKED, CALL LIGHT WITHIN EASY REACH.
[2018-02-02 20:00] VITALS: BP 130/75
--- NOTE | 2018-02-03 | NUR ---
RN NOTES: COMPLAINED OF PAIN ON THE IV SITE, CHECK SITE, NO BACKFLOW, EXPLAINED TO PATIENT NEEDS TO REINSERT A NEW LINE, HE AGREED,IV CANNULA RECITED TO RFA G#22 1 ATTEMPT WITH GOOD BACK FLOW, SECURES WITH TRANSPARENT DRESSING.IV ATB GIVEN AND IVF RESUMED AFTER
[2018-02-03] MEDS: HYDROCODONE/APAP 5/325MG 1 EACH TABLET PO PRN (00:28)
--- NOTE | 2018-02-03 00:28 | NUR ---
RN NOTES: DURING ROUNDS WHEN ASK IF HE HAS PAIN, HE VERBALIZED OF GENERALIZED PAIN 6/10, OFFERED PAIN MEDICATION, HE AGREED, GIVEN, NON PHARMACOLOGIC INTERVENTION RENDERED AFTER,KEPT DIM LIGHT, CALL LIGHT WITHIN EASY REACH.
[2018-02-03] MEDS: VANCOMYCIN 500 MG in IV D5W 100ml IV SCH ×2 (03:01→16:44)
[2018-02-03 04:00] VITALS: BP 112/64
[2018-02-03] MEDS: LACTULOSE 10 G/15 ML UDC (PYXIS) PO SCH ×3 (05:10→17:01)
[2018-02-03] MEDS: PIPERACILLIN /TAZOBACTAM 3.375 G in IV D5W 50 ML IV SCH ×3 (05:10→18:46)
--- NOTE | 2018-02-03 06:36 | NUR ---
RN NOTES: SLEEP WELL IN THE NIGHT AFTER PAIN MEDICATION GIVEN, KEPT ON CLOSE WATCH, CALLS AND NEEDS ATTENDED,NO COMPLAINTS, MORNING CARE DONE, ENDORSED FOR CONTINUITY OF CARE.
[2018-02-03 06:53] LABS: CALCIUM, SERUM 7.8 mg/dL (8.5-10.1); CREATININE 1.3 mg/dL (0.6-1.3); POTASSIUM 3.6 mmol/L (3.5-5.1)
--- NOTE | 2018-02-03 08:15 | NUR ---
MS RN NOTES RECEIVED PT ON BED.ALERT AND ORIENTED X2,HUNGARIAN SPEAKING.ON RA WITH O2 SAT 97%.IV LINE IS ON RIGHT FA,G 22,SITE IS CLEAN,DRY AND INTACT.NO SOB AND ACUTE DISTRESS NOTED.BED IS IN LOW POSITION AND LOCKED.SAFETY IS MAINTAINED.CALL LIGHT IS WITH IN REACH.WILL CONTINUE TO MONITOR THE PT CLOSELY.
[2018-02-03] MEDS: LACTOBACILLUS RHAMNOSUS GG 1 EACH CAP.SPRINK PO SCH ×2 (09:30→16:44)
[2018-02-03] MEDS: PANTOPRAZOLE 40 MG TABLET.DR PO SCH (09:31)
[2018-02-03] MEDS: FOLIC ACID 1 MG TABLET PO SCH (09:31)
[2018-02-03] MEDS: Potassium Chloride 40 MEQ in IV NS 0.9% 1,000 ML IV PRN (09:35)
[2018-02-03 12:00] VITALS: BP 126/74
[2018-02-03] MEDS ORDERED: DOXY100C41 PO (15:37)
[2018-02-03] MEDS ORDERED: LEVO750T21 PO (15:37)
[2018-02-03] MEDS ORDERED: LACT1CAP72 PO (15:37)
[2018-02-03] MEDS ORDERED: LACT10SO6 PO (15:37)
[2018-02-03] MEDS ORDERED: METR500T PO (15:37)
--- NOTE | 2018-02-03 19:41 | NUR ---
MS RN CLOSING NOTES PT IS ON BED.ALERT AND ORIENTED X3.TOLERATING WELL WITH RA.NO FEVER,DENIES PAIN.SEEN BY TRINITY EPPERSON TO D/C WITH TAXI VOUCHER.ENDORSED TO NEXT SHIFT RN FOR CONTINUITY OF DISCHARGE PROCESS NEXT SHIFT RN TO ADMINISTER FLU VACCINE PRIOR TO D/C.PT IS IN STABLE CONDITION.
--- NOTE | 2018-02-03 20:26 | NUR ---
MS RN NOTE PT ASKED FOR FLU SHOT. FLU SHOT GIVEN RT DELTOID. PT TOLERATED WELL. ALL THE BELONGINGS GIVEN TO THE PT. ALSO DISCHARGE INSTRUCTION GIVEN. SKIN PICTURES TAKEN. PT SIGNED THE EXIT CARE DOCUMENTATION. BETTY DC'D FROM RFA AND SECURED THE SITE WITH 2X2 GAUZE. NO BLEEDING NOTED. ALSO NURSING STEEL PAN FORM PLACING SUPERVISOR BROUGHT NEW SHOES FOR THE PT. PT LIKES THEM AND FIT HIM GOOD. ELIECER CALLED FOR THE PT.
--- NOTE | 2018-02-03 20:46 | NUR ---
MS RN NOTE PT LEFT THE ROOM ON W/C WITH THE PATIENT TRANSITION SPECIALIST SO TAXI CAN PICK HIM UP. PT WANTS TO GOT TO [facility] [address] [facility] [address]. PT IS HOMELESS. CHARGE NURSE MADE AWARE. NO DISTRESS NOTED.
--- NOTE | 2018-02-03 21:12 | NUR ---
MS TC NOTE PT LEFT THE HOSPITAL IN [facility] FROM [facility]. Addendum: 02/03/18 at 2119 by ERIC BLANCO RN PT ALSO DID NOT WANT TO TAKE ANY DISCHARGE PAPERS WITH HIM. STATES "WHERE I AM GOING TO KEEP IT".
== END 2018-02-03 21:30 | disposition home or self-care (01) | DRG 720 ==
LOC: ER 08:38 → MEDSG1 14:33 → TELE1 17:00 → MEDSG1 01-22 16:11
PROVIDERS: ADMIT Student in an Organized Health Care Education/Training Program; ATTEND Student in an Organized Health Care Education/Training Program
PROC: 0S9C3ZX Drainage of Right Knee Joint, Percutaneous Approach, Diagnostic (ICD-10-PCS; principal; 2018-01-22)
DX: A41.9 Sepsis, unspecified organism (principal); K72.00 Acute and subacute hepatic failure without coma; K81.0 Acute cholecystitis; N17.9 Acute kidney failure, unspecified; D61.818 Other pancytopenia; E44.1 Mild protein-calorie malnutrition; D68.9 Coagulation defect, unspecified; D69.6 Thrombocytopenia, unspecified; E87.1 Hypo-osmolality and hyponatremia; K70.11 Alcoholic hepatitis with ascites; E87.6 Hypokalemia; L03.115 Cellulitis of right lower limb; F10.239 Alcohol dependence with withdrawal, unspecified; D50.9 Iron deficiency anemia, unspecified; D53.9 Nutritional anemia, unspecified; E83.51 Hypocalcemia; F10.229 Alcohol dependence with intoxication, unspecified; K70.9 Alcoholic liver disease, unspecified; Z59.0 Homelessness; K76.0 Fatty (change of) liver, not elsewhere classified; M71.161 Other infective bursitis, right knee; E83.42 Hypomagnesemia; E83.39 Other disorders of phosphorus metabolism; K74.60 Unspecified cirrhosis of liver; S80.01XA Contusion of right knee, initial encounter; M48.02 Spinal stenosis, cervical region
CPT/HCPCS: 36415; 70496-TC; 71045-TC; 73564-TC; 76700-TC; 76882; 78226; 80048-TC; 80053-TC; 80061-TC; 80076-TC; 80202-TC; 81000-TC; 82140-TC; 82247-TC; 82248-TC; 82272-TC; 82550-TC; 82553-TC; 82570-TC; 82728-TC; 82784; 83540-TC; 83605-TC; 83690-TC; 83735-TC; 83970; 84100-TC; 84132-TC; 84155; 84155-TC; 84165; 84300-TC; 84439-TC; 84443-TC; 84550-TC; 85025-TC; 85396; 85652-TC; 86140-TC; 86334; 86431-TC; 87040-TC; 87070-TC; 87075-TC; 87081-TC; 87086-TC; 87806; 89051-TC; 89060-TC; 90715; 97116-TC; 97530-TC; A4349; A4606; A6402; A9537; G0480; J0690; J2060; J2270; J2405; J2543; J2916; J3370; J3475; J3480; J3490; J7030; J7050; J7060; Q2036; Q9967; Z7610

== ENCOUNTER 2018-02-04 12:22 | Inpatient (IN) | payer MEDICAID ==
[~2018-02-04] VITALS: Ht 162.6 cm; Wt 72.6 kg
[~2018-02-04 12:22] MED LIST changes: +DOXY100C41 PO; +LACT10SO6 PO; +LACT1CAP72 PO; +LEVO750T21 PO; +METR500T PO; -MULT-24 PO; -TETR-66 PO; -THIA100T74 PO
[2018-02-04] MEDS ORDERED: MORPHINE SULFATE INJ 2 MG/ML DISP.SYRIN IV ONE (12:30)
[2018-02-04] MEDS ORDERED: ONDANSETRON HCL/PF 4 MG/2 ML VIAL IVP ONE (12:30)
[2018-02-04 12:57] LABS: BASOPHILS # (AUTO) 0.3 /CMM (0.0-0.2); BASOPHILS % (AUTO) 2.3 % (0.0-2.0); HEMATOCRIT 30 % (39-51); HEMOGLOBIN 9.9 g/dL (13.5-17.5); LYMPHOCYTES # (AUTO) 0.7 /CMM (0.8-4.8); LYMPHOCYTES % (AUTO) 6.2 % (20.0-44.0); MEAN CORPUSCULAR HGB CONC 34 g/dl (31.0-36.0); MEAN CORPUSCULAR VOLUME 113 fL (80-96); MONOCYTES # (AUTO) 0.7 /CMM (0.1-1.30); MONOCYTES % (AUTO) 6.2 % (2.0-12.0); NEUTROPHILS # (AUTO) 9.4 /CMM (1.8-8.9); NEUTROPHILS % (AUTO) 84.3 % (43.0-81.0); PLATELET COUNT (AUTO) 216 /CMM (150-450); RDW COEFFICIENT OF VARIATION 16.2 (11.5-15.0); RED BLOOD CELL COUNT(AUTO) 2.61 MIL/uL (4.5-6.0); WHITE BLOOD COUNT (AUTO) 11.2 K/uL (4.3-11.0)
[2018-02-04] MEDS ORDERED: ONDANSETRON HCL/PF 4 MG/2 ML VIAL ONE (12:58)
[2018-02-04] MEDS ORDERED: MORPHINE SULFATE INJ 4 MG/ML DISP.SYRIN ONE (12:59)
--- NOTE | 2018-02-04 13:04 | NUR ---
CALLED INVESTMENTS MANAGER TO CONSULT ON PATIENT
[2018-02-04 13:07] LABS: CALCIUM, SERUM 8.2 mg/dL (8.5-10.1); CREATININE 1.3 mg/dL (0.6-1.3); POTASSIUM 3.6 mmol/L (3.5-5.1)
[2018-02-04 13:13] LABS: ALBUMIN 1.8 g/dL (3.4-5.0); BILIRUBIN,DIRECT 1.5 mg/dL (0.0-0.2); BILIRUBIN,TOTAL 2.3 mg/dL (0.2-1.0); TOTAL PROTEIN, SERUM 7.2 g/dL (6.4-8.2)
[2018-02-04 13:16] LABS: INR 1.22 (0.85-1.15)
[2018-02-04] MEDS ORDERED: IV D5/0.45 NACL 1,000 ML IV ONE (13:30)
[2018-02-04] MEDS ORDERED: FOLIC ACID 1 MG TABLET PO ONE (13:30)
[2018-02-04] MEDS ORDERED: THIAMINE HCL 100 MG TABLET PO ONE (13:30)
[2018-02-04] MEDS ORDERED: FOLIC ACID 1 MG TABLET ONE (13:31)
[2018-02-04] MEDS ORDERED: THIAMINE HCL 100 MG TABLET ONE (13:31)
--- NOTE | 2018-02-04 13:52 | NUR ---
PT IS ACCEPTED AT [facility]. [address] [facility] [id number].
--- NOTE | 2018-02-04 14:01 | NUR ---
SKYLER received a call from Jemima in ED requesting for SW to see the pt. regarding placement per Dr. Tamayo's request. SKYLER along with SKYLER Rosas met with pt. bedside. Pt. is Telugu speaking and SKYLER Rosas assisted with translation. SKYLER is familiar with pt. from previous admission. Pt. is alert and oriented x 3. Pt. has a history of alcohol abuse. Pt. was discharged last night via taxi. Per Dr. Tamayo, pt. will require placement due to right knee cellulitis and pancytopenia and pt. having difficulty ambulating. SKYLER discussed case with telephonic case manager Nicole who is familiar with the pt. Nicole found placement for the pt. Pt. will be going to [address] Board and care located at [address] [place] [address] in [place] [address] once medically cleared for discharge. Pt. will require taxi transportation upon discharge. Pt. was updated with the discharge plan and agreed to it. No other social service needs are required at this time. SW is available, if needed.
--- NOTE | 2018-02-04 15:10 | NUR ---
RN MS NOTES RECEIVED PT FROM E.R. STAFF VIA JOSE CARLOS, PT IS AWAKE AND ALERT, NO SOB, ASSISTED TO BED, MADE COMFORTABLE, VITAL SIGNS TAKEN AND RECORDED, ROOM SET UP ORIENTATION PROVIDED, AWAITING ADMITTING ORDERS FROM MD.
--- NOTE | 2018-02-04 15:50 | NUR ---
PAGED DR JEFF FERGUSON FOR PANEL ADMISSION
--- NOTE | 2018-02-04 16:19 | NUR ---
CALLED [facility] FOR PANEL CALL AND DR AGUILAR WAS PAGED.
--- NOTE | 2018-02-04 16:39 | NUR ---
REPORT GIVEN TO SHAHEEN FOR KRISTYN. PATIENT IS GOING TO ROOM 314-2
--- NOTE | 2018-02-04 16:41 | NUR ---
PAGED DR JEFF FERGUSON FOR 3RD TIME FOR PANEL ADMISSION
--- NOTE | 2018-02-04 18:29 | NUR ---
RN MS NOTES DR. AGUILAR INFORMED THAT PT IS HERE IN MED SURG FLOOR, PER MD PETERSEN FOR REGULAR DIET.
--- NOTE | 2018-02-04 19:00 | NUR ---
RN MS NOTES PT IN BED, RESTING, NOT IN PAIN OR DISTRESS, MD INFORMED THAT PT IS HERE, SKIN ASSESSMENT DONE, PM CARE DONE, KEPT CLEAN AND COMFORTABLE.
--- NOTE | 2018-02-04 19:15 | NUR ---
RN MS OPENING NOTES RECEIVED PATIENT IN BED, AWAKE ALERT AND ORIENTED X 2-3, ABLE TO MAKE SIMPLE NEEDS KNOWN, RESPIRATIONS EVEN AND UNLABORED WITH EQUAL RISE AND FALL OF CHEST.IV SITE TO LEFT AC #20G INTACT AND PATENT, NO REDNESS, NO INFILTRATION PRESENT, PATIENT ATE 100% OF MEAL PROVIDED WITHOUT ANY DIFFICULTIES, TOLERATED WELL, FLUIDS OFFERED, URINAL OFFERED AT BEDSIDE, PATIENT IS AWARE AND ABLE TO USE URINAL. ORIENTED TO STAFF AND ROOM,CALL LIGHT KEPT WITHIN REACH,SAFETY PRECAUTIONS IN PLACE, LOW BED AND LOCKED, BED ALARM IN PLACE, ALL NEEDS ATTENDED AT THIS TIME, PATIENT REMAINS COMFORTABLE WILL CONTINUE TO MONITOR.
[2018-02-04 20:00] VITALS: BP 119/69
[2018-02-04] MEDS ORDERED: Z GUARD REMEDY 2 OZ OINT TP PRN (20:00)
[2018-02-04] MEDS ORDERED: ZOLPIDEM TARTRATE 5 MG TABLET PO PRN (20:00)
[2018-02-04] MEDS ORDERED: LACTULOSE 10 G/15 ML UDC (PYXIS) PO PRN (20:00)
[2018-02-04] MEDS ORDERED: ACETAMINOPHEN 325 MG TABLET PO PRN (20:00)
[2018-02-04] MEDS ORDERED: MAGNESIUM HYDROXIDE 30 ML UDC PO PRN (20:00)
[2018-02-04] MEDS ORDERED: MAG HYDROX/AL HYDROX/SIMETH 30 ML UDC PO PRN (20:00)
[2018-02-04] MEDS: DOXYCYCLINE HYCLATE (100 MG) 100 MG TABLET PO SCH (20:51)
[2018-02-04] MEDS: LEVOFLOXACIN (750 MG) 750 MG TABLET PO SCH (20:51)
[2018-02-04] MEDS: METRONIDAZOLE 500 MG TABLET PO SCH (20:51)
[2018-02-05] MEDS: METRONIDAZOLE 500 MG TABLET PO SCH ×3 (04:03→21:16)
--- NOTE | 2018-02-05 06:34 | NUR ---
RN MS CLOSING NOTES PATIENT IN BED, SLEEPING BUT EASILY AROUSABLE ALERT AND ORIENTED X 2-3, ABLE TO MAKE SIMPLE NEEDS KNOWN, RESPIRATIONS EVEN AND UNLABORED WITH EQUAL RISE AND FALL OF CHEST.IV SITE TO LEFT AC #20G INTACT AND PATENT, NO REDNESS, NO INFILTRATION PRESENT, FLUIDS OFFERED, URINAL OFFERED AT BEDSIDE, PATIENT HOWEVER DID NOT USE URINAL HAD EPISODE OF INCONTINENCE, CALL LIGHT KEPT WITHIN REACH,SAFETY PRECAUTIONS IN PLACE, LOW BED AND LOCKED, BED ALARM IN PLACE, ALL NEEDS ATTENDED AT THIS TIME, PATIENT REMAINS COMFORTABLE WILL CONTINUE TO MONITOR AND ENDORSE TO NEXT SHIFT, NO CHANGES NOTED THROUGHOUT SHIFT, ALL MEDS GIVEN ORDERED.
--- NOTE | 2018-02-05 07:39 | NUR ---
MS RN OPENING NOTES RECEIVED PATIENT IN STABLE CONDITION. IN NO APPARENT DISTRESS. BEDSIDE RAILS ARE UPX2. BED IS LOCKED AND LOWERED. CALL LIGHT IS WITHIN REACH. IV LINE IS INTACT AND PATENT. WILL CONTINUE TO MONITOR PATIENT.
[2018-02-05 08:00] VITALS: BP 132/68
[2018-02-05] MEDS: DOXYCYCLINE HYCLATE (100 MG) 100 MG TABLET PO SCH ×2 (08:18→21:16)
[2018-02-05] MEDS: LACTOBACILLUS RHAMNOSUS GG 1 EACH CAP.SPRINK PO SCH ×2 (08:18→16:06)
[2018-02-05 09:09] LABS: BASOPHILS # (AUTO) 0.1 /CMM (0.0-0.2); BASOPHILS % (AUTO) 0.5 % (0.0-2.0); EOSINOPHILS % (AUTO) 1.2 % (0.0-6.0); HEMATOCRIT 28 % (39-51); HEMOGLOBIN 8.9 g/dL (13.5-17.5); LYMPHOCYTES # (AUTO) 0.8 /CMM (0.8-4.8); LYMPHOCYTES % (AUTO) 7.1 % (20.0-44.0); MEAN CORPUSCULAR HGB CONC 32 g/dl (31.0-36.0); MEAN CORPUSCULAR VOLUME 116 fL (80-96); MONOCYTES # (AUTO) 0.9 /CMM (0.1-1.30); MONOCYTES % (AUTO) 7.8 % (2.0-12.0); NEUTROPHILS # (AUTO) 9.8 /CMM (1.8-8.9); NEUTROPHILS % (AUTO) 83.4 % (43.0-81.0); PLATELET COUNT (AUTO) 173 /CMM (150-450); RDW COEFFICIENT OF VARIATION 17.1 (11.5-15.0); RED BLOOD CELL COUNT(AUTO) 2.39 MIL/uL (4.5-6.0); WHITE BLOOD COUNT (AUTO) 11.8 K/uL (4.3-11.0)
[2018-02-05 09:25] LABS: ALBUMIN 1.5 g/dL (3.4-5.0); BILIRUBIN,DIRECT 1.3 mg/dL (0.0-0.2); BILIRUBIN,TOTAL 1.9 mg/dL (0.2-1.0); CALCIUM, SERUM 7.7 mg/dL (8.5-10.1); CREATININE 1.3 mg/dL (0.6-1.3); TOTAL PROTEIN, SERUM 6.5 g/dL (6.4-8.2)
[2018-02-05 09:33] LABS: POTASSIUM 2.8 mmol/L (3.5-5.1)
[2018-02-05 09:45] LABS: LYMPHOCYTES % (MANUAL) 5 % (16-48); MONOCYTES % (MANUAL) 7 % (0-11.0); NEUTROPHILS % (MANUAL) 87 (42-76)
[2018-02-05 09:46] LABS: EOSINOPHILS % (MANUAL) 1 % (0-4)
--- NOTE | 2018-02-05 10:20 | NUR ---
WOUND CARE CONSULT: PT PRESENTS WITH RT KNEE ESCHAR WITH DRAINAGE AND LEFT PLANTAR FOOT DRY ESCHAR WITH TENDERNESS, RASH TO PERINEUM, INNER THIGHS AND BUTTOCKS, ALL PRESENT ON ADMISSION. RECOMMENDATIONS MADE FOR WOUND CARE AND SKIN PROTECTION. DISCUSSED WITH NURSING STAFF. RECOMMEND SURGICAL AND DPM CONSULTS. WILL SEE PRN. NEGRON IN AGREEMENT WITH PLAN OF CARE. Addendum: 02/05/18 at 1022 by NATA BROWN WNDNU Amended: Links added.
[2018-02-05 16:00] VITALS: BP 120/75
[2018-02-05] MEDS: CLOTRIMAZOLE 1% 15 GM TUBE TP SCH (16:06)
--- NOTE | 2018-02-05 18:15 | NUR ---
MS RN CLOSING NOTES PATIENT IS IN STABLE CONDITION. IN NO APPARENT DISTRESS. BEDSIDE RAILS ARE UPX2. BED IS LOCKED AND LOWERED. CALL LIGHT IS WITHIN REACH. IV LINE IS INTACT AND PATENT. ALL NEEDS WERE MET. WILL ENDORSE CARE TO HAND FOLDER NURSE FOR KRISTYN.
--- NOTE | 2018-02-05 19:40 | NUR ---
MS RN NOTE: PATIENT RESTING IN BED, NO ACUTE DISTRESS NOTED. BREATHING EVEN AND UNLABORED, NO SOB NOTED. IV TO LAC IN PLACE. BED LOCKED AND IN LOWEST POSITION, CALL LIGHT IN REACH. WILL CONTINUE TO MONITOR.
[2018-02-05 20:00] VITALS: BP 122/82
[2018-02-05] MEDS ORDERED: VITAMINS A AND D 56.7 GM TUBE TP PRN (20:30)
[2018-02-05] MEDS: HYDROCODONE/APAP 5/325MG 1 EACH TABLET PO PRN (20:31)
[2018-02-05] MEDS: LEVOFLOXACIN (750 MG) 750 MG TABLET PO SCH (20:31)
[2018-02-05] MEDS: POTASSIUM CHLORIDE 20 MEQ TAB.PRT.SR PO SCH ×2 (20:31→21:16)
--- NOTE | 2018-02-05 20:45 | NUR ---
MS RN NOTE: PATIENT COMPLAINS OF PAIN 7/10 TO RIGHT KNEE, NORCO 5/325MG 1 TAB ORAL GIVEN PER MD ORDER. WILL CONTINUE TO MONITOR.
[2018-02-06] MEDS: METRONIDAZOLE 500 MG TABLET PO SCH ×2 (05:31→13:10)
--- NOTE | 2018-02-06 06:15 | NUR ---
MS RN NOTE: PATIENT RESTING IN BED, NO ACUTE DISTRESS NOTED. BREATHING EVEN AND UNLABORED, NO SOB NOTED. IV TO LAC IN PLACE. BED LOCKED AND IN LOWEST POSITION, CALL LIGHT IN REACH. WILL ENDORSE TO DAY NURSE TO CONTINUE WITH PLAN OF CARE.
--- NOTE | 2018-02-06 07:15 | NUR ---
RN OPENING NOTES RECEIVED PT. IN BED A&OX3. BREATHING UNLABORED ON ROOM AIR. NO S/S OF ACUTE DISTRESS. URINAL AT BEDSIDE WITHIN REACH. RIGHT KNEE IS WRAPPED IN KERLIX. BED IS IN LOWEST, AND LOCKED POSITION. 2 SIDE RAILS UP, AND INSTRUCTED PT. TO USE CALL LIGHT FOR ASSISTANCE. ALL NEEDS MET. WILL CONTINUE TO ASSESS AND MONITOR.
[2018-02-06 08:00] VITALS: BP 148/90
[2018-02-06] MEDS: HYDROCODONE/APAP 5/325MG 1 EACH TABLET PO PRN (08:05)
[2018-02-06] MEDS: CLOTRIMAZOLE 1% 15 GM TUBE TP SCH ×2 (08:06→16:48)
[2018-02-06] MEDS: LACTOBACILLUS RHAMNOSUS GG 1 EACH CAP.SPRINK PO SCH ×2 (09:02→16:47)
[2018-02-06] MEDS: DOXYCYCLINE HYCLATE (100 MG) 100 MG TABLET PO SCH (09:02)
[2018-02-06 12:34] LABS: BASOPHILS % (AUTO) 0.2 % (0.0-2.0); HEMATOCRIT 27 % (39-51); HEMOGLOBIN 8.7 g/dL (13.5-17.5); LYMPHOCYTES # (AUTO) 1.1 /CMM (0.8-4.8); LYMPHOCYTES % (AUTO) 8.9 % (20.0-44.0); MEAN CORPUSCULAR HGB CONC 32 g/dl (31.0-36.0); MEAN CORPUSCULAR VOLUME 115 fL (80-96); MONOCYTES % (AUTO) 8.3 % (2.0-12.0); NEUTROPHILS # (AUTO) 10.3 /CMM (1.8-8.9); NEUTROPHILS % (AUTO) 81.6 % (43.0-81.0); PLATELET COUNT (AUTO) 167 /CMM (150-450); RED BLOOD CELL COUNT(AUTO) 2.36 MIL/uL (4.5-6.0); WHITE BLOOD COUNT (AUTO) 12.7 K/uL (4.3-11.0)
[2018-02-06 12:42] LABS: CALCIUM, SERUM 7.8 mg/dL (8.5-10.1); CREATININE 1.3 mg/dL (0.6-1.3)
[2018-02-06] MEDS ORDERED: FOLIC ACID 1 MG TABLET PO SCH (14:30)
[2018-02-06] MEDS ORDERED: THIAMINE HCL 100 MG TABLET PO SCH (14:30)
[2018-02-06 16:00] VITALS: BP 124/76
[2018-02-06] MEDS ORDERED: PNEUMOCOCCAL 23-VAL P-SAC VAC 0.5 ML VIAL SQ ONE (18:30)
--- NOTE | 2018-02-06 19:14 | NUR ---
DISCHARGE PT. WAS DISCHARGED IN STABLE CONDITION. PT. LEFT BY TRANSPORTATION TO BOARD AND CARE. DISCHARGE INSTRUCTIONS WITH EDUCATION WAS PROVIDED AND PT. VERBALIZED UNDERSTANDING. ALL QUESTIONS ANSWERED. PT. RECEIVED FLU VACCINE 02/03/18 PER RECORD. PT. WILL FOLLOW UP FOR A PNA VACCINE WITH PCP. ID AND IV WAS REMOVED. DISCHARGE PACKET WAS SIGNED WITH BELONGINGS LIST. ALL QUESTIONS ANSWERED. PT. LEFT WITH A WALKER DUE TO GAIT INSTABILITY TO IN [facility] AT [address] [place] [id number].
[2018-02-20] MEDS ORDERED: PANT40TA2 PO (11:53)
== END 2018-02-06 18:30 | disposition home or self-care (01) | DRG 383 ==
LOC: ER 12:24 → MED 16:12
DX: L03.115 Cellulitis of right lower limb (principal); N17.0 Acute kidney failure with tubular necrosis; K83.1 Obstruction of bile duct; E87.2 Acidosis; D68.9 Coagulation defect, unspecified; E44.1 Mild protein-calorie malnutrition; M70.41 Prepatellar bursitis, right knee; G62.1 Alcoholic polyneuropathy; Z59.0 Homelessness; D63.8 Anemia in other chronic diseases classified elsewhere; E61.1 Iron deficiency; E11.9 Type 2 diabetes mellitus without complications; E87.6 Hypokalemia; Z91.81 History of falling; F10.229 Alcohol dependence with intoxication, unspecified; S90.932A Unspecified superficial injury of left great toe, initial encounter; G31.2 Degeneration of nervous system due to alcohol
CPT/HCPCS: 36415; 76700-TC; 80048-TC; 80076-TC; 83690-TC; 85025-TC; 85730-TC; 87081-TC; A4606; A6253; A6402; G0378; G0480; J2270; J2405; J3490; Z7610

== ENCOUNTER 2018-02-07 21:05 | Inpatient (IN) ==
[~2018-02-07] VITALS: Ht 162.6 cm; Wt 69.9 kg
--- NOTE | 2018-02-07 21:24 | NUR ---
GABI FR STREETS FOR ETOH INTOXICATION, RT KNEE LACERATION S/P FWW WHEEL BROKE & PT FELL. PT AOX3 RR EVEN AND UNLABORED. NO SOB NOTED. NAD NOTED. NO NVD AT THIS TIME. PT GOWNED AND PLACED ON MONTIOR. WAITING FOR MD VILLALOBOS. RIGHT PEDAL PULSE NOTED. WOUND CARE COMPLETED.
--- NOTE | 2018-02-07 21:24 | NUR ---
Note undone in EDM - 02/08/18 at 0017 [facility] FOR [facility]H INTOXICATION, RT KNEE LACERATION S/P FWW WHEEL BROKE & PT FELL. PT AOX3 RR EVEN AND UNLABORED. NO SOB NOTED. NAD NOTED. NO NVD AT THIS TIME. PT GOWNED AND PLACED ON [facility]. WAITING FOR MD VILLALOBOS. RIGHT PEDAL NOTED. WOUND CARE COMPLETED.
[2018-02-07] MEDS ORDERED: IV NS 0.9% 1,000 ML BAG IV ONE ×2 (21:30→23:00)
--- NOTE | 2018-02-07 21:41 | NUR ---
ONEL WATERS AT BEDSIDE FOR EVAL.
--- NOTE | 2018-02-07 21:42 | NUR ---
PT DENIES ETOH AT THIS TIME. PT STATES GLF
[2018-02-07 21:48] LABS: BASOPHILS % (AUTO) 0.4 % (0.0-2.0); EOSINOPHILS % (AUTO) 0.7 % (0.0-6.0); HEMATOCRIT 34 % (39-51); HEMOGLOBIN 11.2 g/dL (13.5-17.5); LYMPHOCYTES # (AUTO) 0.7 /CMM (0.8-4.8); LYMPHOCYTES % (AUTO) 6.3 % (20.0-44.0); MEAN CORPUSCULAR HGB CONC 33 g/dl (31.0-36.0); MEAN CORPUSCULAR VOLUME 113 fL (80-96); MONOCYTES # (AUTO) 0.6 /CMM (0.1-1.30); MONOCYTES % (AUTO) 5.3 % (2.0-12.0); NEUTROPHILS # (AUTO) 10.1 /CMM (1.8-8.9); NEUTROPHILS % (AUTO) 87.3 % (43.0-81.0); PLATELET COUNT (AUTO) 165 /CMM (150-450); RDW COEFFICIENT OF VARIATION 15.3 (11.5-15.0); RED BLOOD CELL COUNT(AUTO) 2.98 MIL/uL (4.5-6.0); WHITE BLOOD COUNT (AUTO) 11.5 K/uL (4.3-11.0)
--- NOTE | 2018-02-07 21:50 | NUR ---
RIGHT KNEE WOUND CULTURE COLLECTED. CALLED LAB FOR PUBLISHING SYSTEMS ANALYST. PT TO CT.
[2018-02-07 21:55] LABS: BAND % (MANUAL) 9 % (0.0-5.0); LYMPHOCYTES % (MANUAL) 10 % (16-48); MONOCYTES % (MANUAL) 6 % (0-11.0); NEUTROPHILS % (MANUAL) 75 (42-76)
[2018-02-07 21:57] LABS: CALCIUM, SERUM 8.9 mg/dL (8.5-10.1); CARBON DIOXIDE 22 mmol/L (21-32); CHLORIDE 110 mmol/L (98-107); CREATININE 1.5 mg/dL (0.6-1.3); GLUCOSE 120 mg/dL (74-106); POTASSIUM 3.5 mmol/L (3.5-5.1); SODIUM SERUM 143 mmol/L (136-145); UREA NITROGEN, BLOOD 9 mg/dL (7-18)
--- NOTE | 2018-02-07 22:00 | NUR ---
PT RETURNED FROM CT. RADIOLOGY AT BEDSIDE FOR KNEE XR
[2018-02-07 22:02] LABS: ALANINE AMINOTRANSFERASE 29 U/L (12-78); ALBUMIN 2.1 g/dL (3.4-5.0); ALKALINE PHOSPHATASE 354 U/L (46-116); ASPARTATE AMINOTRANSFERASE 89 U/L (15-37); BILIRUBIN,DIRECT 1.5 mg/dL (0.0-0.2); BILIRUBIN,TOTAL 1.9 mg/dL (0.2-1.0)
[2018-02-07 22:03] LABS: ALCOHOL, BLOOD < 3 mg/dL (0-0)
--- NOTE | 2018-02-07 22:16 | NUR ---
URINE COLLECTED. CALLED LAB FOR DOG FOOD SHREDDER OPERATOR.
[2018-02-07] MEDS ORDERED: PIPERACILLIN /TAZOBACTAM 3.375 G in IV D5W 50 ML IV ONE (23:00)
--- NOTE | 2018-02-07 23:23 | NUR ---
REPORT GIVEN TO TC GALLO FOR KRISTYN. PT APPEARS COMFORTABLE.
--- NOTE | 2018-02-07 23:27 | NUR ---
PER ONEL WATERS, AWARE OF BNP, VERBAL ORDERS TO HOLD IV FLUIDS AT THIS TIME.
[2018-02-07 23:36] LABS: INR 1.33 (0.87-1.13)
[2018-02-07] MEDS ORDERED: PIPERACILLIN /TAZOBACTAM 3.375 G VIAL IV ONE (23:36)
[2018-02-07] MEDS ORDERED: VANCOMYCIN 1 GM VIAL ONE (23:36)
--- NOTE | 2018-02-07 23:41 | NUR ---
CALLED RN HOUSEKEEPING CLEANER FOR TELE BED
--- NOTE | 2018-02-07 23:52 | NUR ---
US TECH AT BEDSIDE
[2018-02-08] MEDS ORDERED: VANCOMYCIN 1 GM in IV D5W 250 ML IV ONE ×2
--- NOTE | 2018-02-08 00:03 | NUR ---
TELE 315-2
[2018-02-08 00:12] LABS: APPEARANCE,URINE SL CLOUDY (CLEAR); BILIRUBIN,URINE NEGATIVE (NEGATIVE); BLOOD, URINE TRACE Ery/uL (NEGATIVE); COLOR,URINE DARK YELLO (YELLOW); KETONES,URINE NEGATIVE (NEGATIVE); LEUKOCYTE ESTERASE ,URINE NEGATIVE (NEGATIVE); NITRITE, URINE NEGATIVE (NEGATIVE); PH,URINE 5.5 (5.0-8.0); PROTEIN,URINE 1+ mg/dl (NEGATIVE); UGLUCOSE NEGATIVE (NEGATIVE); UROBILINOGEN,URINE 0.2 EU/dL (0.2)
--- NOTE | 2018-02-08 00:22 | NUR ---
REPORT GIVEN TO TC TAO FOR TELE BED 315-2
--- NOTE | 2018-02-08 00:33 | NUR ---
PAGED DR JEFF FERGUSON FOR PANEL ADMISSION
[2018-02-08 00:48] LABS: BACTERIA,URINE Few /HPF (None Seen)
[2018-02-08 00:49] LABS: SQUAMOUS EPITHELIAL CELL,UR Rare /HPF (None Seen)
[2018-02-08] MEDS ORDERED: ZOLPIDEM TARTRATE 5 MG TABLET PO PRN (01:00)
[2018-02-08] MEDS ORDERED: HYDROCODONE/APAP 5/325MG 1 EACH TABLET PO PRN (01:00)
[2018-02-08] MEDS ORDERED: Z GUARD REMEDY 2 OZ OINT TP PRN (01:00)
[2018-02-08] MEDS ORDERED: MAGNESIUM HYDROXIDE 30 ML UDC PO PRN (01:00)
[2018-02-08] MEDS ORDERED: MAG HYDROX/AL HYDROX/SIMETH 30 ML UDC PO PRN (01:00)
[2018-02-08] MEDS ORDERED: ACETAMINOPHEN 325 MG TABLET PO PRN (01:00)
[2018-02-08 01:20] VITALS: BP 128/79
--- NOTE | 2018-02-08 01:20 | NUR ---
CASINO FLOOR RUNNER OPENING NOTES Received this 47 year old male from ER via [place] assisted with 2 hospital staff. Admitted to TELE 315-2 due to Right knee cellulitis under the service of Dr. Tanmay Jaimes. Assisted patient to transfer on bed. Admission routine done. Saturating well on RA @ 100%. Kept NC available at bedside. With patent peripheral IV line RAC G#18, SL. Skin and body assessment done, photos taken and documented. Belongings listed in inventory by ESTHER Guo. Snacks provided per patient request. Clean the wound with NS, dressing applied. Kept bed low and locked, siderails x2 up. Will continue to monitor accordingly. Addendum: 02/08/18 at 0556 by AISLINN GARRETT RN on tele monitor with SR 86bpm.
[2018-02-08] MEDS ORDERED: ENOXAPARIN SODIUM 40 MG/0.4 ML DISP.SYRIN SQ SCH (01:30)
[2018-02-08 02:00] VITALS: BP 128/79
[2018-02-08 04:00] VITALS: BP 130/81
[2018-02-08] MEDS: LACTULOSE 10 G/15 ML UDC (PYXIS) PO SCH ×4 (05:45→23:15)
--- NOTE | 2018-02-08 06:54 | NUR ---
WREATH MACHINE TENDER CLOSING NOTES Patient asleep on semi-Prather's position with tele monitor in place with SR @ 88. With patent peripheral IV line GARTH Horner#18, SL. Denies discomfort at this time. All needs attended. Kept clean, dry and comfortable. Call light within easy reach. Endorsed to the next shift.
[2018-02-08] MEDS ORDERED: FEE PK DOSING 1 MIN EA MC ONE (07:25)
--- NOTE | 2018-02-08 07:30 | NUR ---
ORACLE DATABASE ADMINISTRATOR OPENING NOTES. PT RECEIVED A&0X3 WITH SLURRED/HARD TO UNDERSTAND SPEECH, TOLERATING ROOM AND REPORTING 4-5/10 PAIN TO RIGHT KNEE. PT WITH IVC AT R AC G#18 SALINE FLUSHED PATENT. PT DRESSING INTACT AND PENDING WOUND CONSULT. BED IN LOWEST LOCKED POSITION WITH HANRAILSX2 AND CALL JUAREZ WITHIN REACH. PT BRIEFED ON TODAY'S POC AND IS WITHOUT CONCERN OR COMPLAINT.
[2018-02-08 08:00] VITALS: BP 122/67
[2018-02-08] MEDS: LEVOFLOXACIN (750 MG) 750 MG TABLET PO SCH (08:31)
[2018-02-08] MEDS: LACTOBACILLUS RHAMNOSUS GG 1 EACH CAP.SPRINK PO SCH ×2 (08:31→17:08)
[2018-02-08] MEDS: DOXYCYCLINE HYCLATE (100 MG) 100 MG TABLET PO SCH ×2 (08:31→20:21)
[2018-02-08] MEDS: METRONIDAZOLE 500 MG TABLET PO SCH ×2 (08:31→17:08)
[2018-02-08] MEDS: ONDANSETRON HCL/PF 4 MG/2 ML VIAL IVP PRN (09:38)
[2018-02-08] MEDS: ENOXAPARIN SODIUM 40 MG/0.4 ML DISP.SYRIN SQ SCH (09:44)
--- NOTE | 2018-02-08 11:47 | NUR ---
SKYLER Rosas met with pt. bedside, since pt. is Irish speaking. Pt. is alert and oriented x 3. SKYLER is familiar with pt. from previous admissions. Pt. is manipulative and playing games. Pt. is homeless and was sent to a board and care facility in [place] due to unsteady gait and ambulation. However, pt. is demanding to be sent to a board and care in [place], if not he wants to be discharged to the streets to [facility] in [place]. SKYLER updated window caser with the aforementioned information.
[2018-02-08] MEDS: VANCOMYCIN 1 GM in IV D5W 250 ML IV SCH ×2 (11:50→23:15)
--- NOTE | 2018-02-08 12:12 | NUR ---
WOUND CARE CONSULT: PT PRESENTS WITH RT KNEE WOUNDS WITH PINK DRAINAGE, RASH TO BUTTOCKS AND ESCHAR TO LEFT PLANTAR FOOT, PRESENT ON ADMISSION. RECOMMEND SURGICAL FOLLOWUP. RECOMMENDATIONS MADE FOR WOUND CARE AND SKIN PROTECTION. DISCUSSED WITH NURSING STAFF. PT IS INCONTINENT. WILL SEE PRN. NEGRON IN AGREEMENT WITH PLAN OF CARE. Addendum: 02/08/18 at 1213 by NATA BROWN WNDNU Amended: Links added.
--- NOTE | 2018-02-08 14:30 | NUR ---
CONDOM CATH PLACED AT PARALEGAL ASSISTANT REC R/T INCONTINENCE AND GROIN SKIN CONDITION.
[2018-02-08 16:00] VITALS: BP 119/78
[2018-02-08] MEDS: CLOTRIMAZOLE 1% 15 GM TUBE TP SCH (17:13)
--- NOTE | 2018-02-08 18:06 | NUR ---
RN CLOSING NOTES. PT REMAINS A&0X3 AND TOLERATING ROOM AND DENIES PAIN. PT WITH IVC AT R AC G#18 SL. PT WOUND CARE COMPLETED PER RX. PT CONDOM CATH INTACT AND OPERATIONAL. BED IN LOWEST LOCKED POSITION WITH HANDRAILSX2 AND CALL JUAREZ WITHIN REACH.ALL DAY NURSE DUTIES ATTENDED TO AND PT IS WITHOUT CONCERN OR COMPLAINT, WILL ENDORSE TO NIGHT NURSE AT BEDSIDE FOR KRISTYN.
--- NOTE | 2018-02-08 19:50 | NUR ---
MS/RN OPENING NOTES RECEIVED PATIENT IN BED, RESTING COMFORTABLY IN BED, SKIN WARM TO TOUCH, REQUIRE EXTENSIVE ASSISTANCE WITH CARE, WITH CONDOM CATHETER PLACED DUE TO INCONTINENCE AND BOWEL MOVEMENT. SOUTH AFRICAN SPEAKING ,WILL MONITOR. BED IN LOCK POSITION, CALL LIGHTS WITHIN REACH. RECEIVED ENDORSEMENT FROM AM RN FOR KRISTYN.
[2018-02-08 20:00] VITALS: BP_SYST 111; BP_SYST 115; BP_DIAS 75
[2018-02-09] MEDS: LACTULOSE 10 G/15 ML UDC (PYXIS) PO SCH ×4 (05:27→23:44)
[2018-02-09 06:25] LABS: BASOPHILS # (AUTO) 0.1 /CMM (0.0-0.2); BASOPHILS % (AUTO) 0.6 % (0.0-2.0); EOSINOPHILS % (AUTO) 2.8 % (0.0-6.0); HEMATOCRIT 27 % (39-51); HEMOGLOBIN 8.8 g/dL (13.5-17.5); LYMPHOCYTES # (AUTO) 1.2 /CMM (0.8-4.8); LYMPHOCYTES % (AUTO) 11.5 % (20.0-44.0); MEAN CORPUSCULAR HGB CONC 33 g/dl (31.0-36.0); MEAN CORPUSCULAR VOLUME 114 fL (80-96); MONOCYTES # (AUTO) 0.9 /CMM (0.1-1.30); MONOCYTES % (AUTO) 7.8 % (2.0-12.0); NEUTROPHILS # (AUTO) 8.4 /CMM (1.8-8.9); NEUTROPHILS % (AUTO) 77.3 % (43.0-81.0); PLATELET COUNT (AUTO) 132 /CMM (150-450); RDW COEFFICIENT OF VARIATION 16.7 (11.5-15.0); RED BLOOD CELL COUNT(AUTO) 2.34 MIL/uL (4.5-6.0); WHITE BLOOD COUNT (AUTO) 10.9 K/uL (4.3-11.0)
--- NOTE | 2018-02-09 06:29 | NUR ---
315-2 MS/RN CLOSING NOTES PATIENT ABLE TO SLEEP DURING THE NIGHT, EXTENSIVE ASSISTANCE ANDS MONITORING FOR INCONTINENCE , INFECTION CONTROL, REPOSITIONED FOR COMFORT, KEPT WOUND COVERED WAND DRESSING CHANGES. CONDOM CATHETER CHECKED FOR ANY LEAKS, PATENT AND WITH URINE OUTPUT. SKIN WARM TO TOUCH, OFFERED AND MONITORED FLUID INTAKE. BED LOCKED, ATTENDED TO ALL NEEDS. WILL ENDORSE TO AM RN FOR KRISTYN.
[2018-02-09 06:49] LABS: CALCIUM, SERUM 7.6 mg/dL (8.5-10.1); CREATININE 1.3 mg/dL (0.6-1.3); MAGNESIUM 1.5 mg/dL (1.8-2.4); PHOSPHORUS 3.4 mg/dL (2.5-4.9); POTASSIUM 3.1 mmol/L (3.5-5.1)
--- NOTE | 2018-02-09 07:05 | NUR ---
MS RN OPENING NOTE RECEIVED PT IN BED, SLEEPING. BREATHING IS EVEN AND UNLABORED ON ROOM AIR, NO SIGNS OF ACUTE DISTRESS AT THIS TIME. R AC #18G IV IS PATENT. CLEAN, DRY AND INTACT. CONDOM CATHETER NOTED TO BE DRAINING CLEAR, YELLOW URINE. BED IS LOCKED AND IN LOWEST POSITION, SIDE RAILS UP X2, CALL LIGHT IS WITHIN REACH.
[2018-02-09 08:00] VITALS: BP 137/80
[2018-02-09] MEDS: DOXYCYCLINE HYCLATE (100 MG) 100 MG TABLET PO SCH ×2 (08:23→21:17)
[2018-02-09] MEDS: LEVOFLOXACIN (750 MG) 750 MG TABLET PO SCH (08:23)
[2018-02-09] MEDS: LACTOBACILLUS RHAMNOSUS GG 1 EACH CAP.SPRINK PO SCH ×2 (08:23→18:05)
[2018-02-09] MEDS: METRONIDAZOLE 500 MG TABLET PO SCH ×2 (08:23→18:05)
[2018-02-09] MEDS: HYDROCODONE/APAP 10/325MG 1 EA TABLET PO PRN (08:24)
[2018-02-09] MEDS: ENOXAPARIN SODIUM 40 MG/0.4 ML DISP.SYRIN SQ SCH (08:33)
[2018-02-09] MEDS: CLOTRIMAZOLE 1% 15 GM TUBE TP SCH ×2 (08:56→18:05)
[2018-02-09] MEDS: Magnesium 1GM/D5W 100ML PREMIX 100 ML IV SCH ×2 (11:44→13:23)
[2018-02-09] MEDS ORDERED: POTASSIUM CHLORIDE 20 MEQ TAB.PRT.SR PO SCH (12:00)
[2018-02-09] MEDS: VANCOMYCIN 1 GM in IV D5W 250 ML IV SCH (12:00)
--- NOTE | 2018-02-09 12:14 | NUR ---
MS TC VANCOMYCIN HELD VANCOMYCIN HELD AND PHARMACY NOTIFIED BECAUSE MOST RECENT TROUGH LEVEL ON 02/09/18 @ 12 IS 24.
--- NOTE | 2018-02-09 12:15 | NUR ---
MS RN NON ADMINISTRATION NOTE LACTULOSE HELD PER REKHA NUNN DNP PENDING RE-CHECK OF K LEVEL TOMORROW WITH AM LABS. CURRENT K LEVEL IS 3.1, REPLACEMENT PROTOCOL PER PHARMACY INITIATED.
[2018-02-09] MEDS: POTASSIUM CHLORIDE 20 MEQ TAB.PRT.SR PO SCH ×2 (12:25→13:23)
[2018-02-09 16:00] VITALS: BP 119/71
[2018-02-09] MEDS: NEOMY SULF/BACITRAC ZN/POLY 15 GM TUBE TP SCH (18:05)
[2018-02-09] MEDS: IV NS 0.9% 1,000 ML IV PRN (18:07)
--- NOTE | 2018-02-09 19:00 | NUR ---
MS RN CLOSING NOTE PT IN BED, ALERT AND ORIENTED X4, DENIES N/V, CHEST PAIN, SOB. BREATHING IS EVEN AND UNLABORED ON ROOM AIR. R AC #18G IV IS INFUSING NS @ 75 ML/HR WITHOUT REDNESS OR SWELLING. WOUND CARE PROVIDED ORDERED, PT ASSISTED TO TURN AND REPOSITION Q2H FOR THE DURATION OF THE SHIFT. BED IS LOCKED AND IN LOWEST POSITION, SIDE RAILS UP X2, CALL LIGHT WITHIN REACH. WILL ENDORSE TO CONTENT EDITOR RN FOR CONTINUITY OF CARE.
--- NOTE | 2018-02-09 19:30 | NUR ---
MS/RN RECEIVE PATIENT AWAKE, ALERT, ORIENTED, COMFORTABLE, NO C/O PAIN, NO DISTRESS NOTED, CALL LIGHT IN REACH. WILL MONITOR.
[2018-02-09 20:00] VITALS: BP 123/72
--- NOTE | 2018-02-10 01:52 | NUR ---
MS/RN PATIENT IS SLEEPING AT THIS TIME, AROUSABLE, APPEAR COMFORTABLE, NO DISTRESS NOTED, CALL LIGHT IN REACH. WILL CONTINUE TO MONITOR.
[2018-02-10] MEDS: IV NS 0.9% 1,000 ML IV PRN (05:45)
[2018-02-10] MEDS: LACTULOSE 10 G/15 ML UDC (PYXIS) PO SCH ×3 (06:25→18:00)
--- NOTE | 2018-02-10 06:39 | NUR ---
MS/RN PATIENT IS AWAKE, ALERT, ORIENTED, COMFORTABLE, NO C/O PAIN, NO DISTRESS NOTED, CALL LIGHT IN REACH. ALL NEEDS ATTENDED AT THIS TIME. WILL CONTINUE TO MONITOR.
--- NOTE | 2018-02-10 07:10 | NUR ---
MS RN OPENING NOTE RECEIVED PT IN BED, ALERT AND ORIENTED X4, DENIES N/V, CHEST PAIN, SOB. BREATHING IS EVEN AND UNLABORED ON ROOM AIR. R AC #18G IV IS INFUSING NS @ 75ML/HR WITHOUT REDNESS OR SWELLING. ALL NEEDS ATTENDED TO, BED IS LOCKED AND IN LOWEST POSITION, SIDE RAILS UP X2, BED ALARM IS ON, CALL LIGHT WITHIN REACH.
[2018-02-10 08:00] VITALS: BP 141/86
[2018-02-10] MEDS: METRONIDAZOLE 500 MG TABLET PO SCH (08:41)
[2018-02-10] MEDS: LACTOBACILLUS RHAMNOSUS GG 1 EACH CAP.SPRINK PO SCH ×2 (08:41→17:00)
[2018-02-10] MEDS: VANCOMYCIN 500 MG in IV D5W 100 ML IV SCH ×2 (08:41→21:21)
[2018-02-10] MEDS: LEVOFLOXACIN (750 MG) 750 MG TABLET PO SCH (08:41)
[2018-02-10] MEDS: DOXYCYCLINE HYCLATE (100 MG) 100 MG TABLET PO SCH ×2 (08:41→21:21)
[2018-02-10] MEDS: CLOTRIMAZOLE 1% 15 GM TUBE TP SCH ×2 (08:42→18:49)
[2018-02-10] MEDS: NEOMY SULF/BACITRAC ZN/POLY 15 GM TUBE TP SCH (08:42)
[2018-02-10 08:58] LABS: BASOPHILS % (AUTO) 0.3 % (0.0-2.0); EOSINOPHILS % (AUTO) 1.8 % (0.0-6.0); HEMATOCRIT 30 % (39-51); HEMOGLOBIN 9.7 g/dL (13.5-17.5); LYMPHOCYTES # (AUTO) 1.3 /CMM (0.8-4.8); LYMPHOCYTES % (AUTO) 10.8 % (20.0-44.0); MEAN CORPUSCULAR HGB CONC 33 g/dl (31.0-36.0); MEAN CORPUSCULAR VOLUME 114 fL (80-96); MONOCYTES # (AUTO) 0.7 /CMM (0.1-1.30); MONOCYTES % (AUTO) 5.9 % (2.0-12.0); NEUTROPHILS # (AUTO) 9.8 /CMM (1.8-8.9); NEUTROPHILS % (AUTO) 81.2 % (43.0-81.0); PLATELET COUNT (AUTO) 133 /CMM (150-450); RDW COEFFICIENT OF VARIATION 16.4 (11.5-15.0); RED BLOOD CELL COUNT(AUTO) 2.59 MIL/uL (4.5-6.0)
[2018-02-10 09:04] LABS: CALCIUM, SERUM 8.1 mg/dL (8.5-10.1); CREATININE 1.4 mg/dL (0.6-1.3); MAGNESIUM 1.7 mg/dL (1.8-2.4)
--- NOTE | 2018-02-10 09:30 | NUR ---
MS RN OKAY TO GIVE LOVENOX PER PLATFORM WORKER PER REKHA NUNN, NURSE PRACTITIONER, OKAY TO GIVE LOVENOX WITH PLATELET LEVEL 133.
[2018-02-10] MEDS: ENOXAPARIN SODIUM 40 MG/0.4 ML DISP.SYRIN SQ SCH (09:43)
[2018-02-10] MEDS: ONDANSETRON HCL/PF 4 MG/2 ML VIAL IVP PRN (10:56)
[2018-02-10] MEDS: Magnesium 1GM/D5W 100ML PREMIX 100 ML IV SCH ×2 (11:00→12:08)
--- NOTE | 2018-02-10 12:00 | NUR ---
MS MONTEZ NON ADMINISTRATION NOTE PT TO REMAIN NPO FOR NOW SO THAT ABD ULTRASOUND CAN BE COMPLETED TODAY.
[2018-02-10 12:02] LABS: LYMPHOCYTES % (MANUAL) 7 % (16-48); MONOCYTES % (MANUAL) 3 % (0-11.0); NEUTROPHILS % (MANUAL) 90 (42-76)
[2018-02-10] MEDS: IV D5 LR 1,000 ML IV PRN (13:47)
[2018-02-10 16:00] VITALS: BP 138/85
--- NOTE | 2018-02-10 18:15 | NUR ---
MS MONTEZ STOOL SAMPLE STOOL SAMPLE TO R/O C.DIFF BROUGHT DIRECTLY TO LAB AND HANDED TO JUAN CARLOS.
[2018-02-10 18:47] LABS: ALBUMIN 1.8 g/dL (3.4-5.0); BILIRUBIN,DIRECT 0.9 mg/dL (0.0-0.2); BILIRUBIN,TOTAL 1.4 mg/dL (0.2-1.0); TOTAL PROTEIN, SERUM 7.1 g/dL (6.4-8.2)
--- NOTE | 2018-02-10 18:51 | NUR ---
MS RN CLOSING NOTE PT IN BED, ALERT AND ORIENTED X4. DENIES N/V, CHEST PAIN, SOB. BREATHING IS EVEN AND UNLABORED ON ROOM AIR. R AC #18G IV IS INFUSING D5LR @ 75ML/HR WITHOUT REDNESS OR SWELLING. WOUND CARE PROVIDED ORDERED. NPO STATUS MAINTAINED PENDING GALLBLADDER ULTRASOUND TONIGHT. ALL NEEDS ATTENDED TO. BED IS LOCKED AND IN LOWEST POSITION, SIDE RAILS UP X2, CALL LIGHT IS WITHIN REACH. WILL ENDORSE TO BROODMARE BARN GROOM RN FOR CONTINUITY OF CARE.
[2018-02-10] MEDS: METRONIDAZOLE 500MG/ NS 100ML 500 MG in PREMIX 1 EA IV SCH (18:58)
--- NOTE | 2018-02-10 19:50 | NUR ---
RN MS OPENING NOTES RECEIVED PT IN BED, AWAKE A/OX4, VERBALLY RESPONSIVE AND ABLE TO MAKE NEEDS KNOWN. BREATHING EVEN AND UNLABORED ON ROOM AIR, NO COUGH OR CONGESTION. IV ACCESS ON THE R AC #18G, PATENT AND FLUSHING, NO REDNESS OR SWELLING. NO COMPLAINT OF PAIN OR DISCOMFORT AT THE TIME. BED IS LOCKED AND IN LOWEST POSITION, SIDE RAILS UP X2, CALL LIGHT IS WITHIN REACH. WILL CONTINUE TO MONITOR
[2018-02-10 20:00] VITALS: BP 142/83
[2018-02-11] MEDS: LACTULOSE 10 G/15 ML UDC (PYXIS) PO SCH ×5 (00:19→23:08)
[2018-02-11] MEDS: METRONIDAZOLE 500MG/ NS 100ML 500 MG in PREMIX 1 EA IV SCH ×3 (02:05→17:23)
--- NOTE | 2018-02-11 06:22 | NUR ---
RN CLOSING MS NOTES PT IN BED, RESTING A/OX4, VERBALLY RESPONSIVE AND ABLE TO MAKE NEEDS KNOWN. BREATHING EVEN AND UNLABORED ON ROOM AIR, NO COUGH OR CONGESTION. IV ACCESS ON R AC #18G PATENT AND FLUSHING, NO REDNESS OR SWELLIGN ON SIGHT. NO COMPLAINT OF PAIN OR DISCOMFORT DURING SHIFT. BED IS LOCKED AND IN LOWEST POSITION, SIDE RAILS UP X2, CALL LIGHT IS WITHIN REACH. PERSONAL CARE RENDERED, KEPT CLEAN AND DRY AT ALL TIMES. NO SIGNIFICANT CHANGE DURING SHIFT, WILL ENDORSE TO DAY NURSE FOR KRISTYN
--- NOTE | 2018-02-11 07:15 | NUR ---
MS RN INITIAL NOTES Report received at bedside. Patient received in bed, sleeping intermittently, easily aroused, verbally responsive. Denies any pain/no facial grimacing or moaning noted. Not in any type of distress. Safety measures in place. Will continue to monitor and assess patient
[2018-02-11 08:00] VITALS: BP 126/69
[2018-02-11 08:14] LABS: BASOPHILS % (AUTO) 0.3 % (0.0-2.0); EOSINOPHILS % (AUTO) 2.2 % (0.0-6.0); HEMATOCRIT 30 % (39-51); HEMOGLOBIN 9.5 g/dL (13.5-17.5); LYMPHOCYTES # (AUTO) 1.1 /CMM (0.8-4.8); LYMPHOCYTES % (AUTO) 9.6 % (20.0-44.0); MEAN CORPUSCULAR HGB CONC 32 g/dl (31.0-36.0); MEAN CORPUSCULAR VOLUME 114 fL (80-96); MONOCYTES # (AUTO) 0.9 /CMM (0.1-1.30); MONOCYTES % (AUTO) 7.8 % (2.0-12.0); NEUTROPHILS # (AUTO) 9.6 /CMM (1.8-8.9); NEUTROPHILS % (AUTO) 80.1 % (43.0-81.0); PLATELET COUNT (AUTO) 126 /CMM (150-450); RDW COEFFICIENT OF VARIATION 15.6 (11.5-15.0); RED BLOOD CELL COUNT(AUTO) 2.59 MIL/uL (4.5-6.0)
[2018-02-11 08:25] LABS: CALCIUM, SERUM 7.8 mg/dL (8.5-10.1); CREATININE 1.6 mg/dL (0.6-1.3); MAGNESIUM 1.7 mg/dL (1.8-2.4); POTASSIUM 3.4 mmol/L (3.5-5.1)
[2018-02-11] MEDS: LEVOFLOXACIN (750 MG) 750 MG TABLET PO SCH (09:00)
[2018-02-11] MEDS: DOXYCYCLINE HYCLATE (100 MG) 100 MG TABLET PO SCH ×2 (09:00→21:27)
[2018-02-11] MEDS: LACTOBACILLUS RHAMNOSUS GG 1 EACH CAP.SPRINK PO SCH ×2 (09:00→17:23)
[2018-02-11] MEDS: ENOXAPARIN SODIUM 40 MG/0.4 ML DISP.SYRIN SQ SCH (09:03)
[2018-02-11] MEDS: CLOTRIMAZOLE 1% 15 GM TUBE TP SCH ×2 (09:04→17:25)
[2018-02-11] MEDS: NEOMY SULF/BACITRAC ZN/POLY 15 GM TUBE TP SCH (09:04)
[2018-02-11] MEDS: VANCOMYCIN 500 MG in IV D5W 100 ML IV SCH ×2 (09:09→21:27)
[2018-02-11] MEDS ORDERED: POTASSIUM CHLORIDE 10 MEQ TABLET.SA PO ONE (11:30)
[2018-02-11] MEDS ORDERED: Magnesium 1GM/D5W 100ML PREMIX 100 ML IV SCH (12:00)
[2018-02-11 16:00] VITALS: BP 122/76
[2018-02-11] MEDS: IV D5 LR 1,000 ML IV PRN (17:40)
--- NOTE | 2018-02-11 19:22 | NUR ---
MS RN CLOSING NOTES Report given at bedside. Patient remained in bed, awake, and verbally responsive. Alert and oriented x1-2, able to communicate in basic Macedonian but mostly South Sudanese language. Denies any pain at the moment. No SOB/labored breathing noted or reported. Not in any type of distress. afebrile. Patient was seen by Carolin Alegria NP with orders to collect stool for occult blood: Collected. All needs anticipated and met. Continue on antibiotic treatment and skin/wound treatment, and continue on IV Fluids. All due meds given and tolerated well. Safety measures implemented and observed. Bed in locked and lowest position with bed alarm on and call light within reach.
--- NOTE | 2018-02-11 19:55 | NUR ---
RN MS OPENING NOTES RECEIVED PATIENT IN BED, AWAKE A/OX3, BREATHING EVEN AND UNLABORED ON ROOM AIR. IV ACCESS IN THE L FA 20G PATENT AND FLUSHING. NO COMPLAINT OF PAIN OR DISCOMFORT AT THE TIME. BED IN LOWEST LOCKED POSITION, CALL LIGHT WITHIN REACH AT ALL TIMES, WILL CONTINUE TO MONITOR
[2018-02-11 20:00] VITALS: BP 119/69
[2018-02-11 20:51] LABS: OCCULT BLOOD STOOL NEGATIVE (NEGATIVE)
[2018-02-11] MEDS: HYDROCODONE/APAP 10/325MG 1 EA TABLET PO PRN (21:27)
--- NOTE | 2018-02-12 01:58 | NUR ---
RN MS NOTES PATIENT REMAINS IN BED, SLEEPING INTERMITTENTLY, NO COMPLAINT OF PAIN OR DISCOMFORT, WILL CONTINUE TO MONITOR
[2018-02-12] MEDS: METRONIDAZOLE 500MG/ NS 100ML 500 MG in PREMIX 1 EA IV SCH ×3 (02:17→17:08)
[2018-02-12] MEDS: LACTULOSE 10 G/15 ML UDC (PYXIS) PO SCH ×3 (05:20→17:08)
[2018-02-12] MEDS: IV D5 LR 1,000 ML IV PRN (05:24)
--- NOTE | 2018-02-12 06:32 | NUR ---
RN MS CLOSING NOTES PT IN BED, AWAKE A/OX3, BREATHING EVEN AND UNLABORED ON ROOM AIR. IV ACCESS ON THE L FA#20 G INFUSING D5LR @ 75ML/HR, SITE FREE OF REDNESS AND SWELLING. NO COMPLAINT OF PAIN OR DISCOMFORT, KEPT CLEAN AND DRY DURING SHIFT. BED IN LOWEST LOCKED POSITION, CALL LIGHT WITHIN REACH AT ALL TIMES, NO SIGNIFICANT CHANGE DURING SHIFT, WILL ENDORSE TO DAY NURSE FOR KRISTYN.
[2018-02-12 06:34] LABS: BASOPHILS # (AUTO) 0.1 /CMM (0.0-0.2); BASOPHILS % (AUTO) 0.5 % (0.0-2.0); HEMATOCRIT 29 % (39-51); HEMOGLOBIN 9.6 g/dL (13.5-17.5); LYMPHOCYTES # (AUTO) 1.2 /CMM (0.8-4.8); LYMPHOCYTES % (AUTO) 11.4 % (20.0-44.0); MEAN CORPUSCULAR HGB CONC 33 g/dl (31.0-36.0); MEAN CORPUSCULAR VOLUME 115 fL (80-96); MONOCYTES # (AUTO) 0.9 /CMM (0.1-1.30); MONOCYTES % (AUTO) 8.1 % (2.0-12.0); NEUTROPHILS # (AUTO) 8.5 /CMM (1.8-8.9); PLATELET COUNT (AUTO) 119 /CMM (150-450); RDW COEFFICIENT OF VARIATION 16.9 (11.5-15.0); RED BLOOD CELL COUNT(AUTO) 2.56 MIL/uL (4.5-6.0)
[2018-02-12 06:47] LABS: CALCIUM, SERUM 7.7 mg/dL (8.5-10.1); CREATININE 1.5 mg/dL (0.6-1.3); MAGNESIUM 1.6 mg/dL (1.8-2.4); PHOSPHORUS 3.3 mg/dL (2.5-4.9); POTASSIUM 3.3 mmol/L (3.5-5.1)
[2018-02-12 08:00] VITALS: BP 129/78
--- NOTE | 2018-02-12 08:00 | NUR ---
MS RN NOTES PATIENT IN BED RESTING. ALERT, ORIENTED X3 DENIES ANY PAIN OR DISCOMFORT. PERIPHERAL IV INTACT PATENT. BED IN LOW LOCKED POSITION. CALL LIGHT WITHIN REACH. WILL CONTINUE TO MONITOR.
[2018-02-12] MEDS: VANCOMYCIN 500 MG in IV D5W 100 ML IV SCH ×2 (08:44→20:47)
[2018-02-12] MEDS: LEVOFLOXACIN (750 MG) 750 MG TABLET PO SCH (08:44)
[2018-02-12] MEDS: LACTOBACILLUS RHAMNOSUS GG 1 EACH CAP.SPRINK PO SCH ×2 (08:45→16:33)
[2018-02-12] MEDS: DOXYCYCLINE HYCLATE (100 MG) 100 MG TABLET PO SCH ×2 (08:45→20:53)
[2018-02-12] MEDS: NEOMY SULF/BACITRAC ZN/POLY 15 GM TUBE TP SCH (08:46)
[2018-02-12] MEDS: CLOTRIMAZOLE 1% 15 GM TUBE TP SCH ×2 (08:46→16:34)
[2018-02-12] MEDS: ENOXAPARIN SODIUM 40 MG/0.4 ML DISP.SYRIN SQ SCH (08:50)
[2018-02-12] MEDS ORDERED: POTASSIUM CHLORIDE 20 MEQ TAB.PRT.SR PO SCH (09:30)
[2018-02-12] MEDS: Magnesium 1GM/D5W 100ML PREMIX 100 ML IV SCH ×2 (11:07→14:06)
[2018-02-12 16:00] VITALS: BP 145/89
[2018-02-12] MEDS ORDERED: PEG 3350/NA SULF,BICARB,CL/KCL 4,000 ML BOTTLE PO ONE (16:00)
[2018-02-12] MEDS ORDERED: NA PHOS,M-B/NA PHOS,DI-BA 1 EA ENEMA RC PRN (16:00)
[2018-02-12] MEDS ORDERED: MAGNESIUM CITRATE 296 ML BOTTLE PO ONE (16:00)
--- NOTE | 2018-02-12 16:00 | NUR ---
MS RN NOTES PATIENT SEEN AND EVALUATED BY ALYSIA Mccollum NP PROCEDURE EXPLAINED VIA PROFESSOR OF MECHANICAL ENGINEERING PATIENT VERBALIZED CONSENT SIGNED CONSENT FOR EGD AND COLONOSCOPY. PREP STARTED FOR COLONOSCOPY PER ORDERS WILL CONTINUE TO MONITOR.
--- NOTE | 2018-02-12 18:27 | NUR ---
MS RN NOTES PATIENT IN BED RESTING NO SOB OR ACUTE DISTRESS NOTED. ALL DUE MEDICATIONS ADMINISTERED. ALL NEEDS MET. PATIENT CURRENTLY DRINKING GOLYTELY FOR COLONOSCOPY PREP. PATIENT AWARE TO BE NPO AFTER MIDNIGHT. BED IN LOW LOCKED POSITION . CALL LIGHT WITHIN REACH WILL CONTINUE TO MONITOR.
--- NOTE | 2018-02-12 19:10 | NUR ---
RN MS NOTES RECEIVED PATIENT IN BED AWAKE ALERT AND ORIENTED X 4, RESPIRATIONS EVEN AND UNLABORED WITH EQUAL RISE AND FALL OF CHEST,DENIES ANY PAIN OR DISCOMFORT, PATIENT CURRENTLY DRINKING GOLYTELY FOR PROCEDURE TOMORROW AND UNDERSTANDS PURPOSE OF TREATMENT. IV SITE TO LEFT FA #20 G INTACT AND PATENT, IVF RUNNING ORDERED, NO REDNESS, NO INFILTRATION PRESENT TO SITE. PERINEAL CARE PROVIDED, SAFETY PRECAUTIONS IN PLACE, ALL NEEDS ATTENDED AT THIS TIME, ORIENTED TO STAFF AND CALL LIGHT AND KEPT WITHIN REACH. LOW BED AND LOCKED, BED ALARM IN PLACE PATIENT REMAINS COMFORTABLE AT THIS TIME, WILL CONTINUE TO MONITOR.
[2018-02-12 20:00] VITALS: BP 137/85
[2018-02-13] MEDS: LACTULOSE 10 G/15 ML UDC (PYXIS) PO SCH ×5 (00:33→23:38)
[2018-02-13] MEDS: METRONIDAZOLE 500MG/ NS 100ML 500 MG in PREMIX 1 EA IV SCH ×3 (01:27→17:36)
[2018-02-13] MEDS: IV D5 LR 1,000 ML IV PRN ×2 (01:31→17:54)
--- NOTE | 2018-02-13 07:11 | NUR ---
RN MS CLOSING NOTES PATIENT IN BED SLEEPING BUT EASILY AROUSABLE ALERT AND ORIENTED X 4, RESPIRATIONS EVEN AND UNLABORED WITH EQUAL RISE AND FALL OF CHEST,DENIES ANY PAIN OR DISCOMFORT, PATIENT COMPLETED GOLYTELY FOR PROCEDURE NPO SINCE MIDNIGHT IV SITE TO LEFT FA #20 G INTACT AND PATENT, IVF RUNNING ORDERED, NO REDNESS, NO INFILTRATION PRESENT TO SITE. PERINEAL CARE PROVIDED, SAFETY PRECAUTIONS IN PLACE, ALL NEEDS ATTENDED AT THIS TIME, CALL LIGHT KEPT WITHIN REACH. LOW BED AND LOCKED, BED ALARM IN PLACE PATIENT REMAINS COMFORTABLE AT THIS TIME, WILL CONTINUE TO MONITOR AND ENDORSE TO NEXT SHIFT.
[2018-02-13 07:23] LABS: CALCIUM, SERUM 7.5 mg/dL (8.5-10.1); CREATININE 1.5 mg/dL (0.6-1.3); MAGNESIUM 1.7 mg/dL (1.8-2.4); POTASSIUM 3.2 mmol/L (3.5-5.1)
--- NOTE | 2018-02-13 07:25 | NUR ---
MS RN INITIAL NOTES Report received at bedside. Patient received in bed, sleeping comfortably, easily aroused. Denies any pain at the moment. Not in any type of distress. Planned EGD in the afternoon. NPO until procedure as ordered. Safety measures in place. Will continue to monitor and assess patient.
[2018-02-13 08:00] VITALS: BP 122/74
[2018-02-13] MEDS: LACTOBACILLUS RHAMNOSUS GG 1 EACH CAP.SPRINK PO SCH ×2 (08:34→17:16)
[2018-02-13] MEDS: LEVOFLOXACIN (750 MG) 750 MG TABLET PO SCH (08:34)
[2018-02-13] MEDS: VANCOMYCIN 500 MG in IV D5W 100 ML IV SCH ×2 (08:34→21:04)
[2018-02-13] MEDS: CLOTRIMAZOLE 1% 15 GM TUBE TP SCH ×2 (08:34→17:36)
[2018-02-13] MEDS: DOXYCYCLINE HYCLATE (100 MG) 100 MG TABLET PO SCH (08:34)
[2018-02-13] MEDS: ENOXAPARIN SODIUM 40 MG/0.4 ML DISP.SYRIN SQ SCH (08:35)
[2018-02-13] MEDS: NEOMY SULF/BACITRAC ZN/POLY 15 GM TUBE TP SCH (08:35)
--- NOTE | 2018-02-13 08:35 | NUR ---
MS RN - NON ADMIN NOTES Held Lovenox - patient having procedure done in the afternoon.
--- NOTE | 2018-02-13 10:45 | NUR ---
MS RN - PROCEDURES NOTES Clarified with Sofía (OR nurse) consents for EGD and Colonoscopy (signed).
[2018-02-13] MEDS: Magnesium 1GM/D5W 100ML PREMIX 100 ML IV SCH ×2 (10:46→11:54)
[2018-02-13] MEDS: POTASSIUM CHLORIDE 20 MEQ TAB.PRT.SR PO SCH ×2 (10:49→13:12)
--- NOTE | 2018-02-13 15:01 | NUR ---
MS RN - PROCEDURE NOTES Patient transported to OR by OR staff for EGD/Colonoscopy in stable condition. Awake, alert and verbally responsive (mainly in Welsh). 126/78 77 18 98.3 97%
[2018-02-13 15:45] LABS: ALBUMIN 1.7 g/dL (3.4-5.0); BILIRUBIN,DIRECT 0.6 mg/dL (0.0-0.2); BILIRUBIN,TOTAL 1.1 mg/dL (0.2-1.0); TOTAL PROTEIN, SERUM 6.5 g/dL (6.4-8.2)
[2018-02-13 16:00] VITALS: BP 122/71
--- NOTE | 2018-02-13 16:24 | NUR ---
MS MONTEZ - POST-OP NOTES Patient received from OR in stable condition/Procedure done by Dr. Valentin. Awake, alert and verbally responsive. Not in any type of distress. Post-op orders to resume diet and pre-op orders, Resumed IV fluids @75ml/hr and V/S per protocol. Noted and Carried out. Addendum: 02/13/18 at 1636 by RADHA LOYA RN 122/71 79 16 97.9 96%
--- NOTE | 2018-02-13 18:37 | NUR ---
MS RN CLOSING NOTES Patient remained in bed, intermittently dozing, easily aroused. Alert and oriented x3, verbally responsive/mostly Icelandic. Denies any pain at the moment. No facial grimacing or moaning noted. Not in any type of distress. All due meds given and tolerated. No SOB/labored breathing noted. OT eval done. Continue on clear liquids diet. Continue on IV fluids and antibiotic and topical treatment. Dressing on right knee changed. Safety measures implemented and observed. Bed in lowest and locked position with call light within reach and bed alarm on. Will endorse to oncoming shift nurse.
--- NOTE | 2018-02-13 19:05 | NUR ---
MS RN OPENING NOTES Received patient awake on Prather's position on bed, watching TV. With patent peripheral IV line LFA G#20 with D5LR @ 75ml/hr, no signs of infiltration noted. S/P EGD, on v/s monitoring [id number] as ordered. Denies discomfort at this time. On BR, urinal provided. Kept clean, dry and comfortable. Call light within easy reach. Will continue to monitor.
[2018-02-13 20:00] VITALS: BP 129/89
[2018-02-14] MEDS: IV D5 LR 1,000 ML IV PRN ×2 (00:47→20:44)
[2018-02-14] MEDS: METRONIDAZOLE 500MG/ NS 100ML 500 MG in PREMIX 1 EA IV SCH ×2 (02:02→10:15)
[2018-02-14] MEDS: LACTULOSE 10 G/15 ML UDC (PYXIS) PO SCH ×4 (05:34→23:18)
--- NOTE | 2018-02-14 06:38 | NUR ---
MS RN CLOSING NOTES Patient asleep on semi-Prather's position on bed with patent peripheral IV line LFA G#20 with D5LR infusing well @ 75ml/hr as ordered. S/P D1 EGD, no s/s complication noted. Patient denied any discomfort. All due meds given, no ASE noted. Afebrile throughout the shift. No new unusualities noted. Wound care done, patient tolerated the procedure well. All needs attended. Kept clean, dry and comfortable. Kept bed low and locked, with alarm on. Call light within easy reach. Endorsed to the next shift.
--- NOTE | 2018-02-14 07:48 | NUR ---
RN OPENING NOTES RECEIVED PT. PT STABLE AND SLEEPING IN BED. NO S/S OF RESP DISTRESS/SOB. PT DOES NOT APPEAR TO BE IN PAIN AT THIS TIME. ABDOMINAL DISTENTION NOTED, PER MD NOTE RULED ASCITES. IV ACCESS LOCATED ON LFA 20G INFUSING D5LR AT 75/HR. VANCO TROUGH TO BE DRAWN IN AM PRIOR TO IV ADMIN. SAFETY MEASURES IN PLACE, CALL LIGHT WITHIN REACH. WILL CONTINUE TO MONITOR.
[2018-02-14 07:51] LABS: ALBUMIN 1.6 g/dL (3.4-5.0); BILIRUBIN,TOTAL 1.2 mg/dL (0.2-1.0); CALCIUM, SERUM 7.6 mg/dL (8.5-10.1); CREATININE 1.4 mg/dL (0.6-1.3); MAGNESIUM 1.6 mg/dL (1.8-2.4); PHOSPHORUS 3.3 mg/dL (2.5-4.9); TOTAL PROTEIN, SERUM 6.5 g/dL (6.4-8.2)
[2018-02-14 07:52] LABS: BASOPHILS % (AUTO) 0.4 % (0.0-2.0); EOSINOPHILS % (AUTO) 2.4 % (0.0-6.0); HEMATOCRIT 29 % (39-51); HEMOGLOBIN 9.3 g/dL (13.5-17.5); LYMPHOCYTES # (AUTO) 0.9 /CMM (0.8-4.8); LYMPHOCYTES % (AUTO) 8.7 % (20.0-44.0); MEAN CORPUSCULAR HGB CONC 32 g/dl (31.0-36.0); MEAN CORPUSCULAR VOLUME 115 fL (80-96); MONOCYTES # (AUTO) 0.7 /CMM (0.1-1.30); MONOCYTES % (AUTO) 6.8 % (2.0-12.0); NEUTROPHILS # (AUTO) 8.9 /CMM (1.8-8.9); NEUTROPHILS % (AUTO) 81.7 % (43.0-81.0); PLATELET COUNT (AUTO) 124 /CMM (150-450); RDW COEFFICIENT OF VARIATION 15.9 (11.5-15.0); RED BLOOD CELL COUNT(AUTO) 2.51 MIL/uL (4.5-6.0); WHITE BLOOD COUNT (AUTO) 10.9 K/uL (4.3-11.0)
[2018-02-14 07:53] LABS: POTASSIUM 2.8 mmol/L (3.5-5.1)
[2018-02-14 08:00] VITALS: BP 133/76
[2018-02-14] MEDS: VANCOMYCIN 500 MG in IV D5W 100 ML IV SCH ×2 (08:40→20:48)
[2018-02-14] MEDS: LEVOFLOXACIN (750 MG) 750 MG TABLET PO SCH (08:40)
[2018-02-14] MEDS: LACTOBACILLUS RHAMNOSUS GG 1 EACH CAP.SPRINK PO SCH ×2 (08:40→16:47)
[2018-02-14] MEDS: ENOXAPARIN SODIUM 40 MG/0.4 ML DISP.SYRIN SQ SCH (08:44)
[2018-02-14] MEDS: NEOMY SULF/BACITRAC ZN/POLY 15 GM TUBE TP SCH (09:00)
[2018-02-14] MEDS: CLOTRIMAZOLE 1% 15 GM TUBE TP SCH ×2 (09:30→16:52)
[2018-02-14] MEDS: POTASSIUM CHLORIDE 20 MEQ TAB.PRT.SR PO SCH ×3 (10:16→12:39)
[2018-02-14] MEDS: Magnesium 1GM/D5W 100ML PREMIX 100 ML IV SCH ×2 (11:07→12:39)
[2018-02-14] MEDS: ONDANSETRON HCL/PF 4 MG/2 ML VIAL IVP PRN (15:06)
[2018-02-14 16:00] VITALS: BP 116/74
[2018-02-14] MEDS: SUCRALFATE 1 G/10 ML UDC PO SCH ×2 (17:34→21:14)
--- NOTE | 2018-02-14 19:09 | NUR ---
RN CLOSING NOTES PT IN BED RESTING. NO S/S OF RESP DISTRESS OR SOB. NO C/O PAIN AT THIS TIME. N/V RESOLVED. IV ACCESS STARTED ON RIGHT WRIST, 22G, INFUSING D5LR AT 75/HR. POTASSIUM AND MAG BOTH REPLACED. PT HAD 3 LBM THROUGHOUT SHIFT R/T LACTULOSE ADMIN. ALL PT NEEDS ANTICIPATED AND MET. SAFETY MEASURES IN PLACE, CALL LIGHT WITHIN REACH. WILL ENDORSE TO STAFF DEVELOPMENT COORDINATOR RN FOR KRISTYN.
--- NOTE | 2018-02-14 19:10 | NUR ---
RN OPENING NOTES Received patient on bed, alert, oriented x 3. Breathing even and unlabored. Not in any distress. Peripheral IV infusing at 75mL/hr. No complaints of pain or discomfort as of this time. Call arroyo within reach. Bed in low, locked position. Patient stable as endorsed by the morning shift RN. Will continue to monitor accordingly
[2018-02-14 20:00] VITALS: BP 119/77
[2018-02-14] MEDS: METRONIDAZOLE 500 MG TABLET PO SCH (21:14)
[2018-02-15] MEDS: LACTULOSE 10 G/15 ML UDC (PYXIS) PO SCH ×2 (05:17→12:10)
[2018-02-15] MEDS: METRONIDAZOLE 500 MG TABLET PO SCH ×2 (05:17→12:10)
[2018-02-15 06:23] LABS: BASOPHILS # (AUTO) 0.1 /CMM (0.0-0.2); BASOPHILS % (AUTO) 0.5 % (0.0-2.0); EOSINOPHILS % (AUTO) 2.7 % (0.0-6.0); HEMATOCRIT 28 % (39-51); HEMOGLOBIN 9.5 g/dL (13.5-17.5); LYMPHOCYTES % (AUTO) 8.5 % (20.0-44.0); MEAN CORPUSCULAR HGB CONC 34 g/dl (31.0-36.0); MEAN CORPUSCULAR VOLUME 114 fL (80-96); MONOCYTES # (AUTO) 0.8 /CMM (0.1-1.30); MONOCYTES % (AUTO) 7.4 % (2.0-12.0); NEUTROPHILS # (AUTO) 9.3 /CMM (1.8-8.9); NEUTROPHILS % (AUTO) 80.9 % (43.0-81.0); PLATELET COUNT (AUTO) 96 /CMM (150-450); RED BLOOD CELL COUNT(AUTO) 2.49 MIL/uL (4.5-6.0); WHITE BLOOD COUNT (AUTO) 11.5 K/uL (4.3-11.0)
[2018-02-15 06:40] LABS: ALBUMIN 1.7 g/dL (3.4-5.0); BILIRUBIN,TOTAL 1.2 mg/dL (0.2-1.0); CREATININE 1.4 mg/dL (0.6-1.3); MAGNESIUM 1.7 mg/dL (1.8-2.4); PHOSPHORUS 3.2 mg/dL (2.5-4.9); TOTAL PROTEIN, SERUM 6.6 g/dL (6.4-8.2)
--- NOTE | 2018-02-15 06:44 | NUR ---
RN CLOSING NOTES Patient asleep in bed, easily arousable. Peripheral IV of D5LR on R wrist G#22 infusing well @ 75ml/hr as ordered. No reports of any discomfort as of this time. . All needs attended to. All due medications given as ordered. Kept clean, dry and comfortable. Call arroyo within easy reach. Bed low and locked position. Will endorse KRISTYN to oncoming RN.
[2018-02-15 06:55] LABS: POTASSIUM 2.6 mmol/L (3.5-5.1)
--- NOTE | 2018-02-15 07:00 | NUR ---
RN NOTES Received a call from lab with the critical value of potassium- 2.6. Called epic, was on hold. Then talked to JUSTO Fisher, stated that he does not cover the patient. Endorsed to morning RN
[2018-02-15 08:00] VITALS: BP 126/76
--- NOTE | 2018-02-15 08:02 | NUR ---
RN OPENING NOTES RECEIVED PT. PT STABLE AND SLEEPING IN BED. NO S/S OF RESP DISTRESS/SOB. PT DOES NOT APPEAR TO BE IN PAIN AT THIS TIME. ABDOMINAL DISTENTION NOTED, PER MD NOTE RULED ASCITES. IV ACCESS LOCATED ON RIGHT WRIST 22G INFUSING D5LR AT 75/HR. PT CONTINUING TO HAVE LOOSE BM. AM POTASSIUM LAB DRAW FOUND 2.6 K VALUE, WILL F/U WITH MD FOR REPLACEMENT ORDER. SAFETY MEASURES IN PLACE, CALL LIGHT WITHIN REACH. WILL CONTINUE TO MONITOR.
[2018-02-15] MEDS ORDERED: SUCR1ORA6 PO (08:13)
[2018-02-15] MEDS: LACTOBACILLUS RHAMNOSUS GG 1 EACH CAP.SPRINK PO SCH (08:28)
[2018-02-15] MEDS: LEVOFLOXACIN (750 MG) 750 MG TABLET PO SCH (08:28)
[2018-02-15] MEDS: SUCRALFATE 1 G/10 ML UDC PO SCH ×2 (08:28→12:10)
[2018-02-15] MEDS ORDERED: POTASSIUM CHLORIDE 20 MEQ TAB.PRT.SR PO ONE (08:30)
[2018-02-15] MEDS: ENOXAPARIN SODIUM 40 MG/0.4 ML DISP.SYRIN SQ SCH (08:31)
[2018-02-15] MEDS: Magnesium 1GM/D5W 100ML PREMIX 100 ML IV SCH ×3 (08:33→12:07)
[2018-02-15 08:34] LABS: BAND % (MANUAL) 2 % (0.0-5.0); EOSINOPHILS % (MANUAL) 3 % (0-4); LYMPHOCYTES % (MANUAL) 3 % (16-48); MONOCYTES % (MANUAL) 6 % (0-11.0); NEUTROPHILS % (MANUAL) 86 (42-76)
[2018-02-15] MEDS: VANCOMYCIN 500 MG in IV D5W 100 ML IV SCH (09:13)
[2018-02-15] MEDS: CLOTRIMAZOLE 1% 15 GM TUBE TP SCH (09:23)
[2018-02-15] MEDS ORDERED: VITAMINS A AND D 56.7 GM TUBE TP PRN (12:00)
[2018-02-15] MEDS: NEOMY SULF/BACITRAC ZN/POLY 15 GM TUBE TP SCH (12:07)
--- NOTE | 2018-02-15 15:11 | NUR ---
SKYLER met with pt. with Sinhala speaking diesel scoop operator to discuss discharge plan. Pt. was offered board and care placement, however pt. declined. Pt. wants to go back to [address] [place] [address] in [facility]. Pt. declined all homeless penitentiary resources as well. No other social service needs are required at this time. Pt. was provided with a walker upon discharge. Pt. to discharge via taxi to [address] [place] [address]. [place] Hom[place] form was signed by pt. and placed in pt's chart.
--- NOTE | 2018-02-15 17:09 | NUR ---
DISCHARGE NOTE PT DISCHARGED HOME. PT STABLE, NO S/S OF RESP DISTRESS OR SOB. NO C/O PAIN AT THIS TIME, NO REPORTS OF N/V. D/C TEACHING PERFORMED, PT VERBALIZES UNDERSTANDING. PT REFUSED BOARD AND CARE. PT GIVEN TAXI VOUCHER TO DC TO CHOSEN ADDRESS. IV ACCESS AND ID BAND REMOVED. ALL D/C PAPERWORK SIGNED, COPIED AND PLACED IN CHART. PT REFUSED WOUND PHOTO DOCUMENTATION. PT LEFT HOSPITAL IN PRIVATE TAXI.
[2018-02-20] MEDS ORDERED: PANT40TA2 PO (11:53)
== END 2018-02-15 16:10 | disposition home or self-care (01) | DRG 720 ==
LOC: ER 21:09 → TELE 02-08 00:11 → MED 02-08 08:54
DX: A41.9 Sepsis, unspecified organism (principal); N17.0 Acute kidney failure with tubular necrosis; K72.00 Acute and subacute hepatic failure without coma; G93.41 Metabolic encephalopathy; J90 Pleural effusion, not elsewhere classified; E44.0 Moderate protein-calorie malnutrition; J18.9 Pneumonia, unspecified organism; D69.59 Other secondary thrombocytopenia; E11.40 Type 2 diabetes mellitus with diabetic neuropathy, unspecified; E83.42 Hypomagnesemia; L03.115 Cellulitis of right lower limb; A09 Infectious gastroenteritis and colitis, unspecified; K20.9 Esophagitis, unspecified; E87.6 Hypokalemia; Z59.0 Homelessness; E88.09 Other disorders of plasma-protein metabolism, not elsewhere classified; L98.8 Other specified disorders of the skin and subcutaneous tissue; L30.4 Erythema intertrigo; S81.001A Unspecified open wound, right knee, initial encounter; X58.XXXA Exposure to other specified factors, initial encounter; Y93.9 Activity, unspecified; Y92.9 Unspecified place or not applicable; S51.002A Unspecified open wound of left elbow, initial encounter; R18.8 Other ascites; K70.9 Alcoholic liver disease, unspecified; R74.0 Nonspecific elevation of levels of transaminase and lactic acid dehydrogenase [LDH]; Z86.19 Personal history of other infectious and parasitic diseases; K31.9 Disease of stomach and duodenum, unspecified; K22.70 Barrett's esophagus without dysplasia; Z91.14 Patient's other noncompliance with medication regimen; R41.0 Disorientation, unspecified; F10.20 Alcohol dependence, uncomplicated; Y90.0 Blood alcohol level of less than 20 mg/100 ml
CPT/HCPCS: 36415; 43235; 70450-TC; 71045-TC; 73562; 73610-TC; 76705-TC; 80048-TC; 80053-TC; 80076-TC; 80202-TC; 80305; 81000-TC; 82140-TC; 82247-TC; 82248-TC; 82272-TC; 83605-TC; 83735-TC; 83880; 84100-TC; 85025-TC; 85730-TC; 87040-TC; 87045-TC; 87070-TC; 87081-TC; 87086-TC; 88305-TC; 88313-TC; 88342; 89055; 93970-TC; 97110-TC; 97112-TC; 97116-TC; 97530-TC; A4216; A4349; A4606; A6253; A6402; A6403; G0378; G0480; J1650; J2405; J2543; J2704; J3370; J3475; J3490; J7030; J7042; J7050; J7060; Z7610

== ENCOUNTER 2018-05-07 08:42 | Emergency (ER) | payer SELFPAY ==
[~2018-05-07] VITALS: Ht 165.1 cm; Wt 64.4 kg
[~2018-05-07 08:42] MED LIST changes: -DOXY100C41 PO; -LACT1CAP72 PO; -LEVO750T21 PO; -METR500T PO; +PANT40TA2 PO; +SUCR1ORA6 PO
[2018-05-07 08:48] VITALS: BP 117/78
== END 2018-05-07 15:13 | disposition home or self-care (01) ==
LOC: ER 08:44
DX: F10.229 Alcohol dependence with intoxication, unspecified (principal); G89.29 Other chronic pain; Y90.9 Presence of alcohol in blood, level not specified; Z59.0 Homelessness; Z96.659 Presence of unspecified artificial knee joint
CPT/HCPCS: 99283; A4606; Z7610

== ENCOUNTER 2018-06-03 14:53 | Emergency (ER) | payer SELFPAY ==
[~2018-06-03] VITALS: Ht 147.3 cm; Wt 66.7 kg
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
--- NOTE | 2018-06-03 14:55 | NUR ---
DR WILLIAM AT BEDSIDE
[2018-06-03] MEDS ORDERED: TDAP [DIPH/PERTUSSIS/TET] 0.5 ML VIAL IM ONE ×2 (14:59→15:00)
--- NOTE | 2018-06-03 16:32 | NUR ---
PT IN BED ASLEEP, EASILY AROUSABLE WITH VOICE. HOOKED TO MONITOR, WILL CONTINUE TO MONITOR
--- NOTE | 2018-06-04 02:10 | NUR ---
PT SLEEPING IN [facility]. NO SIGNS OF DISTRESS NOTED. WILL CONT TO MONITOR PT.
--- NOTE | 2018-06-04 06:48 | NUR ---
PT A/OX3. AMBULATORY WITH STEADY GAIT. Patient discharged to home in stable condition. Written and verbal after care instructions given. Patient verbalizes understanding of instruction.
[2018-06-04 06:50] VITALS: BP 122/65
== END 2018-06-04 06:51 | disposition home or self-care (01) ==
LOC: ER 14:58
DX: F10.129 Alcohol abuse with intoxication, unspecified (principal); M25.561 Pain in right knee; Z79.899 Other long term (current) drug therapy; Z98.890 Other specified postprocedural states; Y90.9 Presence of alcohol in blood, level not specified
CPT/HCPCS: 90471; 90715; 99283; A4606; A6402

== ENCOUNTER 2018-06-10 12:59 | Emergency (ER) | payer SELFPAY ==
[~2018-06-10] VITALS: Ht 162.6 cm; Wt 72.6 kg
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
--- NOTE | 2018-06-10 13:05 | NUR ---
PT IS SEEN AND EXAMINED BY DR. HERBERT.
--- NOTE | 2018-06-10 13:11 | NUR ---
LABS DRAWNED AND SENT TO LAB.
[2018-06-10 13:17] LABS: BASOPHILS # (AUTO) 0.1 /CMM (0.0-0.2); BASOPHILS % (AUTO) 1.2 % (0.0-2.0); EOSINOPHILS % (AUTO) 1.1 % (0.0-6.0); HEMATOCRIT 30 % (39-51); HEMOGLOBIN 9.8 g/dL (13.5-17.5); LYMPHOCYTES # (AUTO) 0.7 /CMM (0.8-4.8); LYMPHOCYTES % (AUTO) 14.4 % (20.0-44.0); MEAN CORPUSCULAR HGB CONC 33 g/dl (31.0-36.0); MEAN CORPUSCULAR VOLUME 102 fL (80-96); MONOCYTES # (AUTO) 0.6 /CMM (0.1-1.30); MONOCYTES % (AUTO) 11.1 % (2.0-12.0); NEUTROPHILS # (AUTO) 3.6 /CMM (1.8-8.9); NEUTROPHILS % (AUTO) 72.2 % (43.0-81.0); WHITE BLOOD COUNT (AUTO) 5.1 K/uL (4.3-11.0)
--- NOTE | 2018-06-10 13:18 | NUR ---
PT IS WHEELED TO CT SCAN.
[2018-06-10 13:19] LABS: PLATELET COUNT (AUTO) 40 /CMM (150-450)
[2018-06-10] MEDS ORDERED: LORAZEPAM INJ 2 MG/ML VIAL ONE (13:20)
[2018-06-10 13:27] LABS: CALCIUM, SERUM 8.6 mg/dL (8.5-10.1); CARBON DIOXIDE 23 mmol/L (21-32); CHLORIDE 101 mmol/L (98-107); GLUCOSE 121 mg/dL (74-106); POTASSIUM 3.1 mmol/L (3.5-5.1); SODIUM SERUM 137 mmol/L (136-145); UREA NITROGEN, BLOOD 8 mg/dL (7-18)
[2018-06-10] MEDS ORDERED: LORAZEPAM INJ 2 MG/ML VIAL IV ONE (13:30)
[2018-06-10 13:33] LABS: ALANINE AMINOTRANSFERASE 47 U/L (12-78); ALBUMIN 3.4 g/dL (3.4-5.0); ALCOHOL, BLOOD < 3 mg/dL (0-0); ALKALINE PHOSPHATASE 253 U/L (46-116); ASPARTATE AMINOTRANSFERASE 143 U/L (15-37); BAND % (MANUAL) 3 % (0.0-5.0); BILIRUBIN,DIRECT 0.8 mg/dL (0.0-0.2); BILIRUBIN,TOTAL 1.8 mg/dL (0.2-1.0); LYMPHOCYTES % (MANUAL) 14 % (16-48); MONOCYTES % (MANUAL) 7 % (0-11.0); NEUTROPHILS % (MANUAL) 76 (42-76); TOTAL PROTEIN, SERUM 8.3 g/dL (6.4-8.2)
--- NOTE | 2018-06-10 14:45 | NUR ---
URINE SPECIMEN COLLECTED AND SENT TO LAB.
--- NOTE | 2018-06-10 16:56 | NUR ---
IV removed. Catheter intact and site benign. Pressure and 4x4 applied to site. No bleeding noted. Patient discharged to home in stable condition. Written and verbal after care instructions given. Patient verbalizes understanding of instruction.
[2018-06-10 16:57] VITALS: BP 128/77
== END 2018-06-10 16:59 | disposition home or self-care (01) ==
LOC: ER 13:01
DX: F10.20 Alcohol dependence, uncomplicated (principal); S00.83XA Contusion of other part of head, initial encounter; R56.9 Unspecified convulsions; D69.6 Thrombocytopenia, unspecified; Z98.890 Other specified postprocedural states; Z79.899 Other long term (current) drug therapy; X58.XXXA Exposure to other specified factors, initial encounter; Y93.89 Activity, other specified; Y92.89 Other specified places as the place of occurrence of the external cause; Y99.8 Other external cause status
CPT/HCPCS: 36415; 70450-TC; 71045-TC; 80048-TC; 80076-TC; 80305; 85025-TC; 85730-TC; G0480; J2060

== ENCOUNTER 2018-08-11 21:43 | Emergency (ER) | payer MEDICAID ==
[~2018-08-11] VITALS: Ht 152.4 cm; Wt 72.6 kg
--- NOTE | 2018-08-11 22:10 | NUR ---
PT BIBFRIEND C/O LOWER ABD PAIN X 1 WEEK. DENIES N/V/D. PT ON MONITOR IN BED 11 AWAITING EVAL. WILL CONTINUE TO MONITOR.
--- NOTE | 2018-08-11 22:28 | NUR ---
URINE COLLECTED AND SENT TO LAB
--- NOTE | 2018-08-11 23:05 | NUR ---
AT BEDSIDE FOR EVAL
[2018-08-11 23:19] LABS: APPEARANCE,URINE CLEAR (CLEAR); BILIRUBIN,URINE NEGATIVE (NEGATIVE); BLOOD, URINE NEGATIVE Ery/uL (NEGATIVE); COLOR,URINE YELLOW (YELLOW); KETONES,URINE NEGATIVE (NEGATIVE); LEUKOCYTE ESTERASE ,URINE NEGATIVE (NEGATIVE); NITRITE, URINE NEGATIVE (NEGATIVE); PROTEIN,URINE NEGATIVE (NEGATIVE); UGLUCOSE NEGATIVE (NEGATIVE); UROBILINOGEN,URINE 0.2 EU/dL (0.2)
[2018-08-11 23:40] LABS: BASOPHILS % (AUTO) 0.6 % (0.0-2.0); EOSINOPHILS % (AUTO) 2.9 % (0.0-6.0); HEMATOCRIT 35 % (39-51); HEMOGLOBIN 11.4 g/dL (13.5-17.5); LYMPHOCYTES # (AUTO) 1.2 /CMM (0.8-4.8); LYMPHOCYTES % (AUTO) 25.1 % (20.0-44.0); MEAN CORPUSCULAR HGB CONC 33 g/dl (31.0-36.0); MEAN CORPUSCULAR VOLUME 90 fL (80-96); MONOCYTES # (AUTO) 0.5 /CMM (0.1-1.30); MONOCYTES % (AUTO) 11.4 % (2.0-12.0); NEUTROPHILS # (AUTO) 2.9 /CMM (1.8-8.9); PLATELET COUNT (AUTO) 147 /CMM (150-450); RED BLOOD CELL COUNT(AUTO) 3.92 MIL/uL (4.5-6.0); WHITE BLOOD COUNT (AUTO) 4.8 K/uL (4.3-11.0)
[2018-08-11 23:51] LABS: CALCIUM, SERUM 8.9 mg/dL (8.5-10.1)
[2018-08-11 23:55] LABS: ALBUMIN 3.3 g/dL (3.4-5.0); BILIRUBIN,DIRECT 0.2 mg/dL (0.0-0.2); BILIRUBIN,TOTAL 0.6 mg/dL (0.2-1.0)
--- NOTE | 2018-08-12 02:07 | NUR ---
Shane pool in [facility] - 08/12/18 at 0207 by ROSIE PT RETURNED FROM CT. PT TOLERATED WELL.
--- NOTE | 2018-08-12 02:08 | NUR ---
PT TAKEN TO RADIOLOGY VIA [facility]
--- NOTE | 2018-08-12 03:23 | NUR ---
Patient is resting comfortably in bed with eyes closed. Easily aroused. VSS
--- NOTE | 2018-08-12 05:32 | NUR ---
IV removed. Catheter intact and site benign. Pressure and 4x4 applied to site. No bleeding noted.Patient discharged to home in stable condition. Written and verbal after care instructions given. Patient verbalizes understanding of instruction.
[2018-08-12 05:52] VITALS: BP 130/71
== END 2018-08-12 05:52 | disposition home or self-care (01) ==
LOC: ER 21:45
DX: R10.32 Left lower quadrant pain (principal); F10.10 Alcohol abuse, uncomplicated; Y90.9 Presence of alcohol in blood, level not specified; Z98.890 Other specified postprocedural states
CPT/HCPCS: 36415; 74018; 80048-TC; 80076-TC; 81000-TC; 83690-TC; 85025-TC

== ENCOUNTER 2019-06-20 15:58 | Emergency (ER) | payer MEDICAID ==
[~2019-06-20] VITALS: Ht 165.1 cm; Wt 76.2 kg
[2019-06-20 16:16] VITALS: BP 152/98
--- NOTE | 2019-06-20 19:05 | NUR ---
Pt sleeping in [place]. No signs of distress noted. Pt vital signs stable. Will cont to monitor pt.
--- NOTE | 2019-06-20 21:09 | NUR ---
Pt ok to discharge per Dr Barrientos. Patient given written and verbal discharge instructions. Patient verbalizes understanding of instructions. Patient is ambulatory with steady gait. Refuses offer of senior care placement. Patient given list of available shelters in surrounding area. Patient is awake and alert to self, day, and place. pt ambulatory with a steady gait
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
== END 2019-06-20 21:10 | disposition home or self-care (01) ==
LOC: ER 16:02
DX: F10.10 Alcohol abuse, uncomplicated (principal); Z98.890 Other specified postprocedural states; Z79.899 Other long term (current) drug therapy; Y90.9 Presence of alcohol in blood, level not specified

== ENCOUNTER 2019-10-07 14:16 | Emergency (ER) | payer MEDICAID, OTHER ==
[~2019-10-07] VITALS: Ht 157.5 cm; Wt 66.2 kg
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
--- NOTE | 2019-10-07 16:34 | NUR ---
PT IS AWAKE, VERBALLY RESPONSIVE. STATES WANTS TO LEAVE THE ED. PT IS AMBULATORY W/ STEADY GAIT. PROVIDED W/ MEAL TRAY. RE EVALUATED AND CLEARED BY DR MABRY. DISCHARGE IN STABLE CONDITION.
[2019-10-07 16:37] VITALS: BP 124/82
== END 2019-10-07 16:38 | disposition home or self-care (01) ==
LOC: ER 14:16
DX: F10.129 Alcohol abuse with intoxication, unspecified (principal); Z98.890 Other specified postprocedural states; Z79.899 Other long term (current) drug therapy; Y90.9 Presence of alcohol in blood, level not specified

== ENCOUNTER 2019-11-07 18:24 | Emergency (ER) | payer SELFPAY ==
[~2019-11-07] VITALS: Ht 167.6 cm; Wt 64.0 kg
--- NOTE | 2019-11-07 18:45 | NUR ---
Pt ambulated to bathroom after urinating all over the bed Gait steady
[2019-11-07 19:06] LABS: BASOPHILS % (AUTO) 0.6 % (0.0-2.0); EOSINOPHILS % (AUTO) 1.5 % (0.0-6.0); HEMATOCRIT 37 % (39-51); HEMOGLOBIN 12.6 g/dL (13.5-17.5); LYMPHOCYTES # (AUTO) 2.5 /CMM (0.8-4.8); LYMPHOCYTES % (AUTO) 35.2 % (20.0-44.0); MEAN CORPUSCULAR HGB CONC 34 g/dl (31.0-36.0); MEAN CORPUSCULAR VOLUME 102 fL (80-96); MONOCYTES # (AUTO) 0.5 /CMM (0.1-1.30); MONOCYTES % (AUTO) 7.3 % (2.0-12.0); NEUTROPHILS % (AUTO) 55.4 % (43.0-81.0); PLATELET COUNT (AUTO) 73 /CMM (150-450); RED BLOOD CELL COUNT(AUTO) 3.66 MIL/uL (4.5-6.0); WHITE BLOOD COUNT (AUTO) 7.2 K/uL (4.3-11.0)
[2019-11-07 19:24] LABS: CALCIUM, SERUM 8.4 mg/dL (8.5-10.1); CARBON DIOXIDE 24 mmol/L (21-32); CHLORIDE 106 mmol/L (98-107); CREATININE 0.7 mg/dL (0.6-1.3); GLUCOSE 103 mg/dL (74-106); POTASSIUM 3.5 mmol/L (3.5-5.1); SODIUM SERUM 142 mmol/L (136-145); UREA NITROGEN, BLOOD 4 mg/dL (7-18)
--- NOTE | 2019-11-07 19:30 | NUR ---
ASSUMED CARE OF PT. PT HERE FOR "BIBA RA 81 "[address] Homeless c/o leg pain", PT SLEEPING AT THIS TIME, CONNECTED TO MONITOR, VSS, NAD NOTED
[2019-11-07 19:31] LABS: ALANINE AMINOTRANSFERASE 37 U/L (12-78); ALBUMIN 3.7 g/dL (3.4-5.0); ALCOHOL, BLOOD 446 mg/dL (0-0); ALKALINE PHOSPHATASE 156 U/L (46-116); ASPARTATE AMINOTRANSFERASE 57 U/L (15-37); BILIRUBIN,DIRECT 0.2 mg/dL (0.0-0.2); BILIRUBIN,TOTAL 0.5 mg/dL (0.2-1.0); TOTAL PROTEIN, SERUM 8.4 g/dL (6.4-8.2)
[2019-11-07 19:32] LABS: SALICYLATE 0.3 mg/dL (2.8-20.0)
[2019-11-07 19:33] LABS: ACETAMINOPHEN < 2 ug/ml (10-30)
[2019-11-07 20:44] LABS: EOSINOPHILS % (MANUAL) 1 % (0-4); LYMPHOCYTES % (MANUAL) 28 % (16-48); MONOCYTES % (MANUAL) 2 % (0-11.0); NEUTROPHILS % (MANUAL) 69 (42-76)
[2019-11-07 21:00] VITALS: BP 110/75
--- NOTE | 2019-11-07 21:30 | NUR ---
PT ELOPED FROM ER. MIRA PRODUCT MARKETING PROGRAMS MANAGER NOTIFIED.
== END 2019-11-07 21:30 | disposition left against medical advice (07) ==
LOC: ER 18:26
DX: F10.129 Alcohol abuse with intoxication, unspecified (principal); Z98.890 Other specified postprocedural states; Z59.0 Homelessness; Z79.899 Other long term (current) drug therapy; Y90.8 Blood alcohol level of 240 mg/100 ml or more
CPT/HCPCS: 36415; 80048; 80076; 80307; 80329; 85025; 99283; G0480

== ENCOUNTER 2019-11-11 10:53 | Emergency (ER) | payer MEDICAID ==
[~2019-11-11] VITALS: Ht 167.6 cm; Wt 64.0 kg
--- NOTE | 2019-11-11 11:00 | NUR ---
BIB RA 839,PASSER BY NOTED HIM WALKING WITH DIFFICULTY, C/O RIGHT LEG PAIN WHEN EMS ARRIVED. TO ER BED 15, HOOKED TO MONITOR, CHANGED TO HOSP GOWN, WARM BLANKET PROVIDED, AWAITING MD VILLALOBOS
--- NOTE | 2019-11-11 11:06 | NUR ---
DR CHIRINOS AT BEDSIDE
[2019-11-11] MEDS ORDERED: IBUPROFEN 600 MG TABLET PO ONE ×2 (11:30→11:37)
--- NOTE | 2019-11-11 12:15 | NUR ---
Patient discharged to home in stable condition. Written and verbal after care instructions given. Patient verbalizes understanding of instruction. Pt is homeless and rec'd all homeless long term information and resources. Pt was seen by Kiya, Rn Eligibility, and Pt rec'd a TAP card. PT TRIED TO AMBULATE, BUT HAD AN UNSTEADY GAIT. NOTIFIED. PT NOT DISCHARGED AT THIS TIME.
--- NOTE | 2019-11-11 12:15 | NUR ---
Note corine in EDM - 11/11/19 at 1231 by [email or web address] Patient discharged to home in stable condition. Written and verbal after care instructions given. Patient verbalizes understanding of instruction. PT IS HOMELESS AND REC'D LONG TERM INFORMATION, A TAP CARD, AND A FOOD BOX. PT REC'D ALL HOMELESS RESOURCES AND WAS SEEN BY KAY, PROVIDER NETWORK MANAGER. PT AMBULATED OUT WITH A SLOW STEADY GAIT. VSS.
[2019-11-11 12:20] VITALS: BP 120/85
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
--- NOTE | 2019-11-11 13:46 | NUR ---
PT IS SLEEPING COMFORTABLY IN BED. WILL TRY AND AMBULATE PT SHORTLY.
--- NOTE | 2019-11-11 14:10 | NUR ---
PT AMBULATED WITH A STEADY GAIT AND WAS READY TO LEAVE. PT WAS DISCHARGED AND AMBULATED OUT WITH A STEADY GAIT. VSS.
== END 2019-11-11 14:12 | disposition home or self-care (01) ==
LOC: ER 10:53
DX: S99.811A Other specified injuries of right ankle, initial encounter (principal); F10.10 Alcohol abuse, uncomplicated; Y90.9 Presence of alcohol in blood, level not specified; Z59.0 Homelessness; Z98.890 Other specified postprocedural states; Z60.2 Problems related to living alone; Z79.899 Other long term (current) drug therapy; X58.XXXA Exposure to other specified factors, initial encounter; Y93.89 Activity, other specified; Y92.89 Other specified places as the place of occurrence of the external cause; Y99.8 Other external cause status

== ENCOUNTER 2020-03-13 12:12 | Inpatient (IN) | payer MEDICAID, OTHER ==
[~2020-03-13] VITALS: Ht 152.4 cm; Wt 64.6 kg
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
--- NOTE | 2020-03-13 12:29 | NUR ---
PT SEEN AND EXAMINED BY .
[2020-03-13] MEDS ORDERED: TDAP [DIPH/PERTUSSIS/TET] 0.5 ML VIAL IM ONE ×2 (12:30→12:46)
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
[2020-03-13] MEDS ORDERED: LIDOCAINE 1%-EPI 1:100,000 20 ML VIAL ONE (13:05)
--- NOTE | 2020-03-13 13:42 | NUR ---
SUTURING DONE BY .
[2020-03-13] MEDS ORDERED: LORAZEPAM INJ 2 MG/ML VIAL ONE (14:00)
--- NOTE | 2020-03-13 14:00 | NUR ---
WITNESSED SEIZURED. NO INJURY. 2 MG IV ANTIVAN GIVEN ORDERED BY .
[2020-03-13] MEDS ORDERED: IV NS 0.9% 1,000 ML BAG IV ONE (14:30)
[2020-03-13] MEDS ORDERED: LORAZEPAM INJ 2 MG/ML VIAL IV ONE (14:30)
--- NOTE | 2020-03-13 14:30 | NUR ---
DR.SAM CAMARILLO AT BEDSIDE FOR EVAL.
[2020-03-13 14:45] LABS: CALCIUM, SERUM 8.2 mg/dL (8.5-10.1); CARBON DIOXIDE 18 mmol/L (21-32); CHLORIDE 100 mmol/L (98-107); CREATININE 1.1 mg/dL (0.6-1.3); GLUCOSE 187 mg/dL (74-106); POTASSIUM 3.1 mmol/L (3.5-5.1); SODIUM SERUM 137 mmol/L (136-145); UREA NITROGEN, BLOOD 5 mg/dL (7-18)
[2020-03-13 14:51] LABS: ALANINE AMINOTRANSFERASE 46 U/L (12-78); ALBUMIN 3.2 g/dL (3.4-5.0); ALCOHOL, BLOOD < 3 mg/dL (0-0); ALKALINE PHOSPHATASE 285 U/L (46-116); ASPARTATE AMINOTRANSFERASE 190 U/L (15-37); BILIRUBIN,DIRECT 1.1 mg/dL (0.0-0.2); BILIRUBIN,TOTAL 1.8 mg/dL (0.2-1.0); TOTAL PROTEIN, SERUM 7.4 g/dL (6.4-8.2)
[2020-03-13 14:54] LABS: BASOPHILS % (AUTO) 0.9 % (0.0-2.0); EOSINOPHILS % (AUTO) 0.6 % (0.0-6.0); HEMATOCRIT 29 % (39-51); HEMOGLOBIN 9.3 g/dL (13.5-17.5); LYMPHOCYTES # (AUTO) 0.3 /CMM (0.8-4.8); LYMPHOCYTES % (AUTO) 5.3 % (20.0-44.0); MEAN CORPUSCULAR HGB CONC 32 g/dl (31.0-36.0); MEAN CORPUSCULAR VOLUME 104 fL (80-96); MONOCYTES # (AUTO) 0.6 /CMM (0.1-1.30); MONOCYTES % (AUTO) 11.2 % (2.0-12.0); NEUTROPHILS # (AUTO) 4.6 /CMM (1.8-8.9); RED BLOOD CELL COUNT(AUTO) 2.84 MIL/uL (4.5-6.0); WHITE BLOOD COUNT (AUTO) 5.6 K/uL (4.3-11.0)
[2020-03-13] MEDS ORDERED: Z GUARD REMEDY 2 OZ OINT TP PRN (15:00)
[2020-03-13] MEDS ORDERED: MAG HYDROX/AL HYDROX/SIMETH 30 ML UDC PO PRN (15:00)
[2020-03-13] MEDS ORDERED: ZOLPIDEM TARTRATE 5 MG TABLET PO PRN (15:00)
[2020-03-13] MEDS ORDERED: MAGNESIUM HYDROXIDE 30 ML UDC PO PRN (15:00)
[2020-03-13] MEDS ORDERED: ONDANSETRON HCL/PF 4 MG/2 ML VIAL IVP PRN (15:00)
[2020-03-13] MEDS ORDERED: LIDOCAINE 2% 20 ML MDV ONE (15:56)
[2020-03-13] MEDS ORDERED: LIDOCAINE 1% INJ 50 ML MDV IJ ONE (15:56)
[2020-03-13 16:08] LABS: BAND % (MANUAL) 1 % (0.0-5.0); LYMPHOCYTES % (MANUAL) 7 % (16-48); MONOCYTES % (MANUAL) 7 % (0-11.0); NEUTROPHILS % (MANUAL) 85 (42-76)
[2020-03-13 16:10] LABS: PLATELET COUNT (AUTO) 19 /CMM (150-450)
--- NOTE | 2020-03-13 18:02 | NUR ---
REPORT GIVEN TO TC AKINS FOR KRISTYN.
[2020-03-13 18:39] VITALS: BP 96/57
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
--- NOTE | 2020-03-13 19:05 | NUR ---
ELECTRICAL PROJECT ENGINEER NOTES RECEIVED PT IN BED AWAKE AND ABLE TO MAKE NEEDS KNOWN. PT A/OX2, LAO SPEAKING. RESPIRATIONS EVEN AND UNLABORED WITH NO S/S OF ACUTE DISTRESS OR SO NOTED. PT NOTED WITH RAC #20G PATENT AND INTACT AND SL. SAFETY MEASURES IN PLACE WITH BED IN LOWEST LOCKED POSITION WITH SIDE RAILS UP X2. CALL LIGHT WITHIN REACH. WILL CONTINUE TO MONITOR.
--- NOTE | 2020-03-13 19:30 | NUR ---
PRECISION GRINDER EXTERNAL NOTES PT REFUSED PHOTOS AT THIS TIME. PT ALSO REFUSED SKIN CHECK. WILL CONTINUE TO MONITOR.
[2020-03-13 20:00] VITALS: BP 115/67
[2020-03-13] MEDS: ACETAMINOPHEN 325 MG TABLET PO PRN (21:17)
--- NOTE | 2020-03-13 22:00 | NUR ---
LAST INSERTER NOTES ICE PACKS GIVEN TO PT FOR FACE. WILL CONTINUE TO MONITOR.
[2020-03-14] VITALS (8 sets, daily range): BP systolic 101–137; BP diastolic 61–83
[2020-03-14 06:37] LABS: BASOPHILS % (AUTO) 0.8 % (0.0-2.0); EOSINOPHILS % (AUTO) 2.5 % (0.0-6.0); HEMATOCRIT 25 % (39-51); HEMOGLOBIN 8.2 g/dL (13.5-17.5); LYMPHOCYTES # (AUTO) 0.5 /CMM (0.8-4.8); LYMPHOCYTES % (AUTO) 13.3 % (20.0-44.0); MEAN CORPUSCULAR HGB CONC 33 g/dl (31.0-36.0); MEAN CORPUSCULAR VOLUME 101 fL (80-96); MONOCYTES # (AUTO) 0.4 /CMM (0.1-1.30); MONOCYTES % (AUTO) 12.8 % (2.0-12.0); NEUTROPHILS # (AUTO) 2.4 /CMM (1.8-8.9); NEUTROPHILS % (AUTO) 70.6 % (43.0-81.0); RED BLOOD CELL COUNT(AUTO) 2.45 MIL/uL (4.5-6.0); WHITE BLOOD COUNT (AUTO) 3.4 K/uL (4.3-11.0)
--- NOTE | 2020-03-14 06:41 | NUR ---
MANAGER TRANSPORT NOTES PT IN BED SLEEPING BUT EASILY AWOKEN VERBALLY OR BY TOUCH. PT A/O X2 AND ABLE TO MAKE NEEDS KNOWN. RESPIRATIONS EVEN AND UNLABORED WITH NO S/S OF ACUTE DISTRESS OR SO NOTED THROUGHOUT SHIFT. PT DENIES PAIN AND DISCOMFORT. SAFETY MEASURES IN PLACE WITH BED IN LOWEST LOCKED POSITION WITH SIDE RAILS UP X2. CALL LIGHT WITHIN REACH. WILL ENDORSE TO ONCOMING NURSE FOR KRISTYN.
[2020-03-14 06:57] LABS: CALCIUM, SERUM 8.1 mg/dL (8.5-10.1); CREATININE 0.6 mg/dL (0.6-1.3); MAGNESIUM 1.7 mg/dL (1.8-2.4); PHOSPHORUS 3.1 mg/dL (2.5-4.9); POTASSIUM 2.9 mmol/L (3.5-5.1)
[2020-03-14 07:18] LABS: THYROID STIMULATING HORMONE 2.166 uIU/mL (0.358-3.74)
[2020-03-14 08:51] LABS: PLATELET COUNT (AUTO) 15 /CMM (150-450)
[2020-03-14 08:52] LABS: BAND % (MANUAL) 18 % (0.0-5.0); EOSINOPHILS % (MANUAL) 2 % (0-4); LYMPHOCYTES % (MANUAL) 16 % (16-48); MONOCYTES % (MANUAL) 12 % (0-11.0); NEUTROPHILS % (MANUAL) 52 (42-76)
[2020-03-14] MEDS ORDERED: POTASSIUM CHLORIDE 20 MEQ TAB.PRT.SR PO ONE (10:30)
[2020-03-14] MEDS ORDERED: POTASSIUM CHLORIDE 10 MEQ TABLET.SA PO SCH (10:30)
[2020-03-14] MEDS: Magnesium 1GM/D5W 100ML PREMIX 100 ML IV SCH ×2 (10:38→12:08)
[2020-03-14] MEDS: HYDROCODONE/APAP 5/325MG TABLET PO PRN (12:09)
[2020-03-14] MEDS: POTASSIUM CL. PREMIX PERIPHER. 50 ML IV SCH ×2 (13:23→15:03)
--- NOTE | 2020-03-14 20:00 | NUR ---
RN NOTE PT RECEIVED IN THE BED RESTING, PT IS A/O X2. PT IS ON RA SATING 100%, PT HAS UNLABORED BREATHING. PT ON TELE MONITOR SHOWING ST WITH HR IN 100s. SAFETY MEASURES AND SEIZURE PRECAUTIONS ARE IN PLACE.
[2020-03-15] VITALS (9 sets, daily range): BP systolic 107–138; BP diastolic 75–88
--- NOTE | 2020-03-15 04:00 | NUR ---
RN NOTE REFUSING PICTURE PT REFUSED PICTURE.
[2020-03-15] MEDS: LORAZEPAM INJ 2 MG/ML VIAL IV PRN ×2 (05:26→20:44)
[2020-03-15 06:30] LABS: BASOPHILS % (AUTO) 0.7 % (0.0-2.0); EOSINOPHILS % (AUTO) 1.2 % (0.0-6.0); HEMATOCRIT 27 % (39-51); HEMOGLOBIN 8.8 g/dL (13.5-17.5); LYMPHOCYTES # (AUTO) 0.5 /CMM (0.8-4.8); LYMPHOCYTES % (AUTO) 11.3 % (20.0-44.0); MEAN CORPUSCULAR HGB CONC 33 g/dl (31.0-36.0); MEAN CORPUSCULAR VOLUME 102 fL (80-96); MONOCYTES # (AUTO) 0.5 /CMM (0.1-1.30); NEUTROPHILS # (AUTO) 3.3 /CMM (1.8-8.9); NEUTROPHILS % (AUTO) 75.8 % (43.0-81.0); RED BLOOD CELL COUNT(AUTO) 2.62 MIL/uL (4.5-6.0); WHITE BLOOD COUNT (AUTO) 4.4 K/uL (4.3-11.0)
[2020-03-15 06:40] LABS: PLATELET COUNT (AUTO) 28 /CMM (150-450)
[2020-03-15 06:50] LABS: CALCIUM, SERUM 8.4 mg/dL (8.5-10.1); CREATININE 0.7 mg/dL (0.6-1.3); MAGNESIUM 1.7 mg/dL (1.8-2.4); PHOSPHORUS 3.2 mg/dL (2.5-4.9)
--- NOTE | 2020-03-15 06:53 | NUR ---
RN NOTE RECEIVED CRITICAL LAB [place] [facility], WAITING FOR DR HICKS TO CALL BACK.
[2020-03-15 07:04] LABS: POTASSIUM 2.8 mmol/L (3.5-5.1)
--- NOTE | 2020-03-15 07:24 | NUR ---
RN NOTE PT REMAINED STABLE DURING MY SHIFT, REPORT GIVEN TO INCOMING SHIFT FOR KRISTYN.
--- NOTE | 2020-03-15 07:34 | NUR ---
POWER SHEAR OPERATOR OPENING NOTES RECEIVED PATIENT IN BED, AWAKE, A/O X1. PATIENT ON ROOM AIR; BREATHING IS EVEN AND UNLABORED; NO SOB PRESENT AT THIS TIME. PATIENT CONFUSED AT TIMES AND NOT FOLLOWING COMMAND. NO COMPLAINS OF PAIN AT THIS MOMENT. RAC IV ACCESS G#20 PRESENT AND INTACT. SAFETY PRECAUTIONS IN PLACE; BED IN LOW POSITION AND LOCKED, RAILS UP X2, CALL LIGHT WITHIN REACH, SEIZURE PRECAUTIONS IN PLACE. WILL CONTINUE TO MONITOR PATIENT.
--- NOTE | 2020-03-15 08:00 | NUR ---
SATELLITE INSTALLER NOTES LAB CALLED WITH A CRITICAL LAB RESULT FOR POTASSIUM OF 2.8 MD CONTACTED; ORDERS RECEIVED.
--- NOTE | 2020-03-15 09:49 | NUR ---
SURVEY QUESTIONNAIRE DESIGNER NOTES PATIENT CONFUSED AND REQUIRES FREQUENT REORIENTATION. GETTING OUT OF BED OFTEN; BED ALARM ON.
[2020-03-15] MEDS: ACETAMINOPHEN 325 MG TABLET PO PRN ×2 (09:52→20:44)
[2020-03-15] MEDS: POTASSIUM CHLORIDE 20 MEQ TAB.PRT.SR PO SCH ×3 (09:52→12:16)
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
[2020-03-15 10:06] LABS: LYMPHOCYTES % (MANUAL) 13 % (16-48); MONOCYTES % (MANUAL) 9 % (0-11.0); NEUTROPHILS % (MANUAL) 78 (42-76)
[2020-03-15] MEDS: Magnesium 1GM/D5W 100ML PREMIX 100 ML IV SCH ×2 (10:36→11:38)
--- NOTE | 2020-03-15 13:06 | NUR ---
Health Information Management Director consult requested by Dr. Massimo Payton as the patient is homeless. SW attempted to contact patient's TC Campos to verify if patient was interviewable. TC Campos unavailable at this time. SW to attempt to verify with TC Campos at a later time.
--- NOTE | 2020-03-15 15:40 | NUR ---
SUPERVISOR LEAF SPRING REPAIR NOTES PATIENT REFUSES PHOTOS TO BE TAKEN.
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
--- NOTE | 2020-03-15 18:40 | NUR ---
FIGHTER PILOT CLOSING NOTES PATIENT IN BED, AWAKE, A/O X2. PATIENT ON ROOM AIR; BREATHING IS EVEN AND UNLABORED; NO SOB PRESENT AT THIS TIME. PATIENT CONFUSED AT TIMES AND NOT FOLLOWING COMMAND; WANTS TO GO OUTSIDE OR BACK HOME. REFUSES PICTURES AND WANTS TO STAY IN HIS CLOTHES. NO COMPLAINS OF PAIN DURING THE SHIFT. RAC IV ACCESS G#20 PRESENT AND INTACT. POTASSIUM AND MAGNESIUM REPLACED DURING SHIFT. SEEN BY SW. ALL NEEDS ATTENDED THROUGHOUT THE DAY. SAFETY PRECAUTIONS IN PLACE; BED IN LOW POSITION AND LOCKED, RAILS UP X2, CALL LIGHT WITHIN REACH, SEIZURE PRECAUTIONS IN PLACE. WILL ENDORSE TO HEADING SAW OPERATOR NURSE.
--- NOTE | 2020-03-15 20:10 | NUR ---
RN OPENING NOTES PATIENT RECEIVED IN BED A/O 2. STABLE ON RA WITH BREATHING EVEN AND UNLABORED, NO SOB NOTED. NO SIGNS OF ACUTE DISTRESS. NO COMPLAINTS OF PAIN OR DISCOMFORT AT THIS TIME. TELE MONITOR READING SR. ORTIZ LOCATED ON RAC #20 SL. SAFETY PRECAUTIONS IN PLACE WITH BED IN LOWEST POSITION, CALL LIGHT WITHIN REACH, BREAKS ON, SIDE RAILS UP. SEIZURE PRECAUTIONS IN PLACE. WILL CONTINUE TO MONITOR THROUGHOUT THE NIGHT.
[2020-03-15] MEDS: HYDROCODONE/APAP 5/325MG TABLET PO PRN (21:37)
[2020-03-16] VITALS: BP 122/78
--- NOTE | 2020-03-16 01:00 | NUR ---
RN NOTES PATIENT REFUSING TO KEEP TELE MONITOR ON. CONSTANTLY REMOVING AND STORING IT IN BELONGINGS.
[2020-03-16] MEDS: LORAZEPAM INJ 2 MG/ML VIAL IV PRN (01:04)
[2020-03-16 04:00] VITALS: BP 119/75
--- NOTE | 2020-03-16 06:43 | NUR ---
RN CLOSING NOTES PATIENT IN BED A/O X2. STABLE ON RA WITH BREATHING EVEN AND UNLABORED, NO SOB NOTED. NO SIGNS OF ACUTE DISTRESS. NO COMPLAINTS OF PAIN OR DISCOMFORT AT THIS TIME. REFUSED TO HAVE TELE MONITOR ON MAJORITY OF THE NIGHT. IV LOCATED ON R HAND #22 SL. SAFETY PRECAUTIONS IN PLACE WITH BED IN LOWEST POSITION, CALL LIGHT WITHIN REACH, BREAKS ON, SIDE RAILS UP. SEIZURE PRECAUTIONS IN PLACE. ALL NEEDS ATTENDED TO. WILL ENDORSE TO ONCOMING SHIFT ABOUT KRISTYN.
[2020-03-16 06:59] LABS: BASOPHILS % (AUTO) 1.5 % (0.0-2.0); EOSINOPHILS % (AUTO) 3.9 % (0.0-6.0); HEMATOCRIT 24 % (39-51); HEMOGLOBIN 7.9 g/dL (13.5-17.5); LYMPHOCYTES # (AUTO) 0.7 /CMM (0.8-4.8); LYMPHOCYTES % (AUTO) 23.6 % (20.0-44.0); MEAN CORPUSCULAR HGB CONC 32 g/dl (31.0-36.0); MEAN CORPUSCULAR VOLUME 104 fL (80-96); MONOCYTES # (AUTO) 0.5 /CMM (0.1-1.30); MONOCYTES % (AUTO) 18.6 % (2.0-12.0); NEUTROPHILS # (AUTO) 1.5 /CMM (1.8-8.9); NEUTROPHILS % (AUTO) 52.4 % (43.0-81.0); RED BLOOD CELL COUNT(AUTO) 2.33 MIL/uL (4.5-6.0); WHITE BLOOD COUNT (AUTO) 2.9 K/uL (4.3-11.0)
[2020-03-16 07:14] LABS: CALCIUM, SERUM 7.6 mg/dL (8.5-10.1); CREATININE 0.5 mg/dL (0.6-1.3); PHOSPHORUS 4.1 mg/dL (2.5-4.9)
[2020-03-16 07:18] LABS: PLATELET COUNT (AUTO) 33 /CMM (150-450)
--- NOTE | 2020-03-16 07:19 | NUR ---
RN NOTES RECEIVED CRITICAL LAB OF PLATELET OF 33. ENDORSED TO ONCOMING SHIFT.
[2020-03-16 08:00] VITALS: BP 123/82
--- NOTE | 2020-03-16 08:00 | NUR ---
RN OPENING NOTE Patient is resting in bed, A/O x2, showing no signs of acute distress or SOB, stable on RA. Patient removed tele monitor at this time and refused to wear it. IV line in the right hand #22g is clean and intact flushing well. Bed is lowest position, side rails x3 in upright position, call light is within reach, fall, safety, seizure and aspiration precautions enforced. Will continue with plan of care.
[2020-03-16] MEDS: HYDROCODONE/APAP 5/325MG TABLET PO PRN (09:05)
[2020-03-16 09:14] LABS: EOSINOPHILS % (MANUAL) 4 % (0-4); LYMPHOCYTES % (MANUAL) 33 % (16-48); MONOCYTES % (MANUAL) 1 % (0-11.0); NEUTROPHILS % (MANUAL) 62 (42-76)
--- NOTE | 2020-03-16 09:20 | NUR ---
RN NOTE Patient agreed to wear tele monitor. Tele reading is SR 85.
[2020-03-16] MEDS: POTASSIUM CHLORIDE 20 MEQ TAB.PRT.SR PO SCH ×3 (09:55→12:12)
--- NOTE | 2020-03-16 10:24 | NUR ---
RN NOTE Offered patient to change into gown, patient prefers to stay in his clothes and wear his shoes. Refuses skin assessment as well.
--- NOTE | 2020-03-16 11:00 | NUR ---
Tele/RN - Notes Received patient from MS2 awake, A/O x 2, no seizure activity, denies pain, stable on room air, tele shows SR, refused skin assessment, room orientation given, all belongings accounted. Fall and seizure precautions maintained. Will continue with current medical management.
--- NOTE | 2020-03-16 11:00 | NUR ---
RN NOTE TRANSFERRED TO CLEAN FLOOR Bedside report given to Kaylin MONTEZ for KRISTYN. Dr. Donato is aware that patient moved to clean floor 3W.
[2020-03-16 12:00] VITALS: BP 100/66
--- NOTE | 2020-03-16 12:30 | NUR ---
Tele/RN - Notes Potassium replacement given as ordered, no s/s of aspiration, no seizure activity, denies pain, without distress on room air.
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
[2020-03-16 16:00] VITALS: BP 114/75
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
--- NOTE | 2020-03-16 17:04 | NUR ---
Tele/RN - Discharge Patient is alert and oriented x 3, afebrile, denies pain, not in any form of distress, no c/o dizziness, no seizure activity, ambulatory with steady gait, denies SI/HI, no visual or auditory hallucinations at this time. Reviewed discharge instructions with patient and he verbalized full understanding of all teachings including follow up with PCP in 1 week. Patient was provided with resources for medical care if needed. Patient was advised to seek immediate medical attention for chest pain, shortness of breath, palpitations, abdominal pain or distention, intractable nausea and vomiting, diarrhea, weakness or any other emergent concerns. All belongings with patient and he deny any missing items. Patient refused photos to be taken of skin. Patient signed discharge paperwork/homeless waiver form and copies were given per protocol. Dinner, snacks, TAP were given to the patient, left the unit at 16:50. Addendum: 03/16/20 at 1811 by MAULIK LANDIS RN Saline lock removed on the right hand with catheter tip intact, no redness, no swelling noted at the site.
== END 2020-03-16 17:19 | disposition home or self-care (01) | DRG 53 ==
LOC: ER 12:17 → TELE2 17:54 → TELE 03-16 10:55
PROC: 0CQ0XZZ Repair Upper Lip, External Approach (ICD-10-PCS; principal; 2020-03-13)
DX: G40.89 Other seizures (principal); D61.818 Other pancytopenia; K70.30 Alcoholic cirrhosis of liver without ascites; D50.9 Iron deficiency anemia, unspecified; K22.70 Barrett's esophagus without dysplasia; S01.511A Laceration without foreign body of lip, initial encounter; Y04.8XXA Assault by other bodily force, initial encounter; Y93.9 Activity, unspecified; S09.93XA Unspecified injury of face, initial encounter; K80.20 Calculus of gallbladder without cholecystitis without obstruction; Z59.0 Homelessness; Y92.89 Other specified places as the place of occurrence of the external cause; I10 Essential (primary) hypertension; Y90.0 Blood alcohol level of less than 20 mg/100 ml; F10.188 Alcohol abuse with other alcohol-induced disorder
CPT/HCPCS: 36415; 70450-TC; 70486-TC; 80048-TC; 80061-TC; 80076-TC; 83735-TC; 84100-TC; 84443-TC; 85025-TC; 85730-TC; 86705; 86706; 86803; 87081-TC; 87340; 87806; 90715; A6403; G0378; G0480; J2060; J3475; J3480; J3490; J7030; J7050; U0003